=== PATIENT | male | born 1955 | race Hispanic/Latino ===

== ENCOUNTER 2018-07-17 13:03 | Emergency (ER) | payer MEDICARE ==
[2018-07-17 13:10] VITALS: RESP 18
[2018-07-17] MEDS ORDERED: ceFAZolin 1 GM in Sodium Chloride 0.9% 100 ML IVPB ONE (13:23)
[2018-07-17] MEDS ORDERED: Sodium Chloride 0.9% 1,000 ML IV ONE (13:25)
--- NOTE | 2018-07-17 13:28 | ED PDOC ---
HPI: Wound Care - HPI Time Seen by Provider: 07/17/18 13:11 Chief Complaint (Nursing): Abnormal Skin Integrity Chief Complaint (Provider): Right Elbow Wound History Per: Patient Exam Limitations: no limitations Onset/Duration Of Symptoms: Days (x1 week) Current Symptoms Are (Timing): Still Present Additional Complaint(s): 63 year old male presents to the ED via EMS for evaluation of a right elbow wound with surrounding redness sustained during a trip and fall on loose floor boards one week ago. He states he has been using OTC antibiotic ointments with no relief and is experiencing decreased ROM to the arm. Otherwise, denies fever, chills, chest pain, shortness of breath, numbness, and tingling. PMD: Massimo Rojas Past Medical History Reviewed: Historical Data, Nursing Documentation, Vital Signs Vital Signs: Last Vital Signs Temp 98 F 07/17/18 13:08 Pulse 88 07/17/18 13:08 Resp 18 07/17/18 13:08 BP 121/61 07/17/18 13:08 Pulse Ox 99 07/17/18 13:08 - Medical History PMH: Anxiety, Bipolar Disorder, Depression Denies: Hepatitis, HIV, HTN, Chronic Kidney Disease, Seizures, Sexually Transmitted Disease - Surgical History Surgical History: No Surg Hx - Family History Family History: States: Unknown Family Hx - Social History Current smoker - smoking cessation education provided: No Alcohol: Social Drugs: Other (hx of abuse for 10 years, 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) - Immunization History Hx Tetanus Toxoid Vaccination: No Hx Influenza Vaccination: No - Home Medications Home Medications: Ambulatory Orders Medication Instructions Recorded Gabapentin [Neurontin] 100 mg PO TID #90 cap 05/16/17 QUEtiapine [Seroquel] 100 mg PO HS #30 tab 05/16/17 Sertraline [Zoloft] 150 mg PO DAILY #30 tab 05/16/17 Ciprofloxacin HCl [Cipro] 500 mg PO BID #28 tablet 07/17/18 Sulfamethoxazole/Trimethoprim 1 tab PO BID #20 tab 07/17/18 [Bactrim DS 800 mg-160 mg] - Allergies Allergies/Adverse Reactions: Allergies Allergy/AdvReac Type Severity Reaction Status Date / Time No Known Allergies Allergy Verified 04/13/18 12:03 Review of Systems ROS Statement: Except As Marked, All Systems Reviewed And Found Negative Constitutional: Negative for: Fever, Chills Cardiovascular: Negative for: Chest Pain Respiratory: Negative for: Shortness of Breath Musculoskeletal: Positive for: Other (decreased ROM to right arm secondary to pain) Skin: Positive for: Other (wound to right elbow with surrounding redness) Neurological: Negative for: Numbness (and tinlging) Physical Exam - Reviewed Nursing Documentation Reviewed: Yes Vital Signs Reviewed: Yes - Physical Exam Appears: Positive for: No Acute Distress Head Exam: Positive for: ATRAUMATIC, NORMOCEPHALIC Eye Exam: Positive for: Normal appearance Neck: Positive for: Normal, Painless ROM Cardiovascular/Chest: Positive for: Regular Rate, Rhythm Respiratory: Positive for: Normal Breath Sounds. Negative for: Respiratory Distress Extremity: Positive for: Tenderness (diffusely to right elbow), Other (2cm x 4cm eschar lesion to right posterior elbow that has radiant erythema in all directions, warm to touch, with scent distinctly pseudomonas). Negative for: Normal ROM (decreased extension of right arm to 85 degrees; normal ROM to all digits) Neurological/Psych: Positive for: Awake, Alert, Oriented (x3) - Laboratory Results Result Diagrams: 07/17/18 13:43 07/17/18 13:43 - ECG O2 Sat by Pulse Oximetry: 99 (RA) Pulse Ox Interpretation: Normal Medical Decision Making Medical Decision Making: Time: 1321 Initial Impression: wound care Initial Plan: --CMP --CBC with differential --Blood culture x2 --XR right elbow --Ancef 1gm NS IV --Normal saline IV --Wound culture --Cipro 400mg/200ml IVPB --Reevaluation 1422 Preliminary XR read by me as no fracture, no effusion, and no signs of osteomyelitis. ELBOW XRAY PROCEDURE: Radiographs of the right elbow. HISTORY: infx r/o osteo COMPARISON: No prior. TECHNIQUE: 3 views obtained. FINDINGS: BONES: Epicondyle. No evidence of acute displaced fracture nor dislocation. No obvious cortical destructive changes. JOINTS: There appears to be a tiny enthesophyte arising from the medial epicondyle SOFT TISSUES: There are soft tissue infiltration changes consistent with this patient's history of cellulitis. No definitive subcutaneous emphysema JOINT EFFUSION: None. OTHER FINDINGS: None. IMPRESSION: No evidence of acute displaced fracture nor dislocation. No obvious cortical destructive changes. Findings consistent with soft tissue cellulitis however no subcutaneous emphysema. If symptoms persist or early osteomyelitis suspected clinically recommend follow-up MRI. PT has had IV abx on site; pt is afebrile with no WBC count Pt vitals are otherwise stable and the patient is stable for discharge Scribe Attestation: Documented by Sydnie Parikh, acting as a scribe for Aaron Navarro PA-C. Provider Scribe Attestation: All medical record entries made by the Scribe were at my direction and personally dictated by me. I have reviewed the chart and agree that the record accurately reflects my personal performance of the history, physical exam, m edical decision making, and the department course for this patient. I have also personally directed, reviewed, and agree with the discharge instructions and disposition. Disposition - Clinical Impression Clinical Impression: Cellulitis of arm, right - Patient ED Disposition Is Patient to be Admitted: No Doctor Will See Patient In The: Office Counseled Patient/Family Regarding: Studies Performed, Diagnosis, Need For Followup, Rx Given - Disposition Referrals: Massimo Rojas MD [Family Provider] - Disposition: Routine/Home Disposition Time: 16:50 Condition: STABLE Prescriptions: Ciprofloxacin HCl [Cipro] 500 mg PO BID #28 tablet Sulfamethoxazole/Trimethoprim [Bactrim DS 800 mg-160 mg] 1 tab PO BID #20 tab Instructions: Cellulitis and Erysipelas (Skin Infections), Cellulitis (Skin Infection), Adult (DC) Forms: [employer] (P) ([place])
[2018-07-17] MEDS ORDERED: Ciprofloxacin 400mg/200ml D5W 400 MG/200 ML BAG IVPB STA (13:47)
[2018-07-17] MEDS ORDERED: Ciprofloxacin 400mg/200ml D5W 400 MG/200 ML BAG IVPB ONE (13:54)
[2018-07-17 14:13] LABS: BASO % 0.7 % (0.0-2.0); EOS # 0.1 K/uL (0.0-0.7); EOS % 2.4 % (0.0-4.0); LYMPH # 1.1 K/uL (1.0-4.3); LYMPH % 18.2 % (20.0-40.0); MEAN CELL VOLUME 85.7 fl (80.0-94.0); MEAN CORPUSCULAR HEMOGLOBIN 28.2 pg (27.0-31.0); MEAN CORPUSCULAR HGB CONC 32.9 g/dL (33.0-37.0); MEAN PLATELET VOLUME 8.2 fl (7.2-11.7); MONO # 0.5 K/uL (0.0-0.8); MONO % 8.6 % (0.0-10.0); NEUT # 4.2 K/uL (1.8-7.0); NEUT % 70.1 % (50.0-75.0); NRBC % 0.1 % (0.0-0.0); RBC 4.6 Mil/uL (4.40-5.90); RED CELL DISTRIBUTION WIDTH 16.5 % (11.5-14.5)
[2018-07-17 14:30] LABS: ALB/GLOB RATIO 1.2 (1.0-2.1); ALBUMIN 3.8 g/dL (3.5-5.0); ALT/SGPT 24 U/L (21-72); AST/SGOT 19 U/L (17-59); BLOOD UREA NITROGEN 8 mg/dl (9-20); GFR NON-AFRICAN AMERICAN > 60
--- NOTE | 2018-07-17 14:43 | RAD ---
Date of service: 07/17/2018 PROCEDURE: Radiographs of the right elbow. HISTORY: infx r/o osteo COMPARISON: No prior. TECHNIQUE: 3 views obtained. FINDINGS: BONES: Epicondyle. No evidence of acute displaced fracture nor dislocation. No obvious cortical destructive changes. JOINTS: There appears to be a tiny enthesophyte arising from the medial epicondyle SOFT TISSUES: There are soft tissue infiltration changes consistent with this patient's history of cellulitis. No definitive subcutaneous emphysema JOINT EFFUSION: None. OTHER FINDINGS: None. IMPRESSION: No evidence of acute displaced fracture nor dislocation. No obvious cortical destructive changes. Findings consistent with soft tissue cellulitis however no subcutaneous emphysema. If symptoms persist or early osteomyelitis suspected clinically recommend follow-up MRI.
[2018-07-17 17:08] VITALS: BP 131/80; PULSE 80; TEMP 98.5; O2SAT 100
== END 2018-07-17 17:06 | disposition home or self-care (01) ==
LOC: H.ER 13:03
DX: L03.113 Cellulitis of right upper limb (principal); Z86.59 Personal history of other mental and behavioral disorders; W01.0XXA Fall on same level from slipping, tripping and stumbling without subsequent striking against object, initial encounter
CPT/HCPCS: 73080; 80053; 85025; 87040; 87070; 87181; 96374; 96375; 99283; J0690; J0744; J7030

== ENCOUNTER 2018-07-21 17:50 | Inpatient (IN) | payer MEDICARE ==
[2018-07-21 19:29] LABS: BASO # 0.1 K/uL (0.0-0.2); BASO % 0.6 % (0.0-2.0); EOS # 0.2 K/uL (0.0-0.7); EOS % 2.4 % (0.0-4.0); HEMOGLOBIN 13.4 g/dL (12.0-18.0); LYMPH # 1.3 K/uL (1.0-4.3); LYMPH % 15.2 % (20.0-40.0); MEAN CORPUSCULAR HEMOGLOBIN 28.5 pg (27.0-31.0); MEAN CORPUSCULAR HGB CONC 33.2 g/dL (33.0-37.0); MEAN PLATELET VOLUME 7.8 fl (7.2-11.7); MONO # 0.6 K/uL (0.0-0.8); MONO % 7.3 % (0.0-10.0); NEUT # 6.2 K/uL (1.8-7.0); NEUT % 74.5 % (50.0-75.0); NRBC % 0.1 % (0.0-0.0); RBC 4.69 Mil/uL (4.40-5.90); RED CELL DISTRIBUTION WIDTH 16.4 % (11.5-14.5); WHITE BLOOD COUNT 8.3 K/uL (4.8-10.8)
[2018-07-21 19:32] LABS: PROTHROMBIN TIME 11.4 Seconds (9.8-13.1)
[2018-07-21 19:35] LABS: PARTIAL THROMBOPLASTIN TIME 44.6 Seconds (25.6-37.1)
[2018-07-21 19:39] LABS: ALB/GLOB RATIO 1.2 (1.0-2.1); ALBUMIN 4.1 g/dL (3.5-5.0); ALT/SGPT 32 U/L (21-72); AST/SGOT 25 U/L (17-59); BLOOD UREA NITROGEN 10 mg/dl (9-20); CALCIUM 9.3 mg/dL (8.4-10.2); GFR NON-AFRICAN AMERICAN > 60
--- NOTE | 2018-07-21 20:18 | ED PDOC ---
Upper Extremity Pain/Injury Time Seen by Provider: 07/21/18 18:42 Chief Complaint (Nursing): Wound Check Chief Complaint (Provider): Wound Check History Per: Patient History/Exam Limitations: no limitations Onset/Duration Of Symptoms: Persistent Current Symptoms Are (Timing): Still Present Quality: "Pain" Exacerbating Factor(s): Movement Additional Complaint(s): 63 year old male presents to the ED for evaluation of a wound to the right elbow that he sustained almost two weeks ago. Patient was treated at this ED at 07/17 and discharged with the diagnosis of wound infection on Ciprofloxacin and Bactrim. He was called two days later and informed that he has MRSA. Patient's antibiotic was then changed to Doxycycline. Since, pain worsened and the wound has become increasingly red as well as draining. Patient also reports a subjective fever at night and that pain is worsened with movement. He visited his PMD today and was told to come to the ED. Denies numbness or tingling in right upper extremity and chills. PMD: Dr. Rojas Past Medical History Reviewed: Historical Data, Nursing Documentation, Vital Signs Vital Signs: Last Vital Signs Temp 98.5 F 07/21/18 18:31 Pulse 94 H 07/21/18 18:31 Resp 16 07/21/18 18:31 BP 190/103 H 07/21/18 18:31 Pulse Ox 100 07/21/18 18:31 - Medical History PMH: Anxiety, Bipolar Disorder, Depression, Diabetes Denies: Hepatitis, HIV, HTN, Chronic Kidney Disease, Seizures, Sexually Transmitted Disease - Surgical History Surgical History: Tonsillectomy - Family History Family History: States: Unknown Family Hx - Social History Current smoker - smoking cessation education provided: Yes Alcohol: Occasional Drugs: Opiates (history of heroine abuse; 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) - Immunization History Hx Tetanus Toxoid Vaccination: No Hx Influenza Vaccination: No - Home Medications Home Medications: Ambulatory Orders Medication Instructions Recorded Ciprofloxacin HCl [Cipro] 500 mg PO BID #28 tablet 07/17/18 Doxycycline Hyclate [Doryx] 100 mg PO BID #14 cap 07/19/18 Gabapentin [Neurontin] 100 mg PO BID 07/21/18 QUEtiapine [Seroquel] 100 mg PO HS 07/21/18 Sertraline [Zoloft] 100 mg PO BID 07/21/18 - Allergies Allergies/Adverse Reactions: Allergies Allergy/AdvReac Type Severity Reaction Status Date / Time No Known Allergies Allergy Verified 04/13/18 12:03 Review of Systems ROS Statement: Except As Marked, All Systems Reviewed And Found Negative Constitutional: Negative for: Fever, Chills Musculoskeletal: Positive for: Arm Pain (right elbow pain, redness and d/c) Neurological: Negative for: Weakness, Numbness Physical Exam - Reviewed Nursing Documentation Reviewed: Yes Vital Signs Reviewed: Yes - Physical Exam Appears: Positive for: Non-toxic, No Acute Distress Head Exam: Positive for: ATRAUMATIC, NORMOCEPHALIC Skin: Positive for: Warm, Dry Eye Exam: Positive for: EOMI, PERRL ENT: Positive for: Normal ENT Inspection Neck: Positive for: Painless ROM, Supple Cardiovascular/Chest: Positive for: Regular Rate, Rhythm. Negative for: Murmur Respiratory: Positive for: Normal Breath Sounds. Negative for: Respiratory Dis tress Gastrointestinal/Abdominal: Positive for: Soft. Negative for: Tenderness Back: Positive for: Normal Inspection. Negative for: Decreased ROM Extremity: Positive for: Normal ROM (full ROM at right elbow), Other (well-de marcated, 4 cm x 3 cm with a depth of 1/2 cm, circular ulceration to right elbow with surrounding erythema and yellow eschar within wound) Lymphatic: Negative for: Adenopathy Neurological/Psych: Positive for: Awake. Negative for: Motor/Sensory Deficits - Laboratory Results Result Diagrams: 07/21/18 19:07 07/21/18 19:07 Lab Results: PT 11.4 Seconds (9.8-13.1) 07/21/18 19: INR 1.0 07/21/18 19:07 APTT 44.6 Seconds (25.6-37.1) H 07/21/18 19:07 Total Bilirubin 0.3 mg/dl (0.2-1.3) 07/21/18 19:07 AST 25 U/L (17-59) 07/21/18 19:07 ALT 32 U/L (21-72) 07/21/18 19:07 Alkaline Phosphatase 75 U/L (38-126) 07/21/18 19:07 Total Protein 7.6 G/DL (6.3-8.2) 07/21/18 19: Albumin 4.1 g/dL (3.5-5.0) 07/21/18 19:07 Globulin 3.5 gm/dL (2.2-3.9) 07/21/18 19:07 Albumin/Globulin Ratio 1.2 (1.0-2.1) 07/21/18 19:07 - ECG O2 Sat by Pulse Oximetry: 100 (RA) Pulse Ox Interpretation: Normal Medical Decision Making Medical Decision Makin:50 Impression: multi drug resistant Staph aureus wound infection at right elbow --Blood type --EKG --CMP --CRP --UDS --Lactic acid --Urine dip --CBC --ESR --PTT --PT --CXR --Vancomycin 1 gm in NS 250 ml IV --Blood cx Reviewed microbiology from wound cx demonstrates multi drug resistance Staph aureus Patient will need hospital admission for IV antibiotics DW Dr [facility] Scribe Attestation: Documented by Sabrina Gonzalez, acting as a scribe for Kitty Quintana MD Provider Scribe Attestation: All medical record entries made by the Scribe were at my direction and personally dictated by me. I have reviewed the chart and agree that the record accurately reflects my personal performance of the history, physical exam, medical decision making, and the department course for this patient. I have also personally directed, reviewed, and agree with the discharge instructions and disposition. Disposition - Clinical Impression Clinical Impression: Cellulitis of right elbow Counseled Patient/Family Regarding: Studies Performed, Diagnosis - Disposition Disposition Time: 20:00 Condition: FAIR - Pt Status Changed To: Hospital Disposition Of: Inpatient - Admit Certification Admit to Inpatient:: After my assessment, the patient will require hospitalization for at least two midnights. This is because of the severity of symptoms shown, intensity of services needed, and/or the medical risk in this patient being treated as an outpatient. - POA Present On Arrival: None
[2018-07-21] MEDS ORDERED: Vancomycin 1 g Inj ONE (20:45)
[2018-07-22 03:45] VITALS: BMI 25.9
[2018-07-22 07:07] LABS: BENZODIAZEPINES, UR NEGATIVE (NEGATIVE)
[2018-07-22 07:11] LABS: BARBITURATES, UR NEGATIVE (NEGATIVE); OPIATES, UR NEGATIVE (NEGATIVE); PHENCYCLIDINE, UR NEGATIVE (NEGATIVE)
--- NOTE | 2018-07-22 09:17 | CARD ---
APPROVED REPORT Date of service: 07/21/2018 EKG Measurement Heart [id number] <Conclusion> Normal sinus rhythm Normal ECG
--- NOTE | 2018-07-22 09:48 | RAD ---
Date of service: 07/21/2018 HISTORY: hypertension cellulitis COMPARISON: No prior. TECHNIQUE: Chest PA and lateral views FINDINGS: LUNGS: No active pulmonary disease. PLEURA: No significant pleural effusion identified. No pneumothorax apparent. CARDIOVASCULAR: No aortic atherosclerotic calcification present. Normal cardiac size. No pulmonary vascular congestion. OSSEOUS STRUCTURES: No significant abnormalities. VISUALIZED UPPER ABDOMEN: Normal. OTHER FINDINGS: None. IMPRESSION: No acute cardiopulmonary disease appreciated.
--- NOTE | 2018-07-22 10:30 | CP.PCM.CON ---
History of Present Illness - History of Present Illness History of Present Illness: Infectious Disease Consultation Note- Asked to see this patietn at the request of for right elbow cellulitis. HPI- Patient is a 63 year old male with PMH of depression who was recaleld by ED because his right elbow wound cx grew MRSA. Pt. states 2 weeks ago he fell on uneven candy and scraped his right elbow and he noticed that the region was getting red and painful and foul smelling and he came to Ed few days ago and was given bactrim and cipro and d/c home. He states after that he was called that the cx grew MRSA and he was switched to doxycyline but his right elbow started to have evn more swelling and redness and pain and hence he came to ED for further evaluation. He denies any PMH other than pysch history. Upon reading his medical chart and previous admission notes pt. has h/o IVDU and is Hep C positive. Pt. has been started by admitting team on Iv vancomycin since yesterday and he states he has developed some itchy rashes on his arms b/l and b/l thighs. he denies any throat pain or any respiratory problems. denies any fever or chills. denies any nausea or vomiting, denies any MONGE, denies any cough or sob, denies any chest pain, denies any dysurea, denies any diarrhea. he only c/o foul smelling pus discharge from his right elbow and redness and pain there. Allergy- denies except this rash after vanco Review of Systems - Review of Systems Review of Systems: ROS- as stated in HPI Past Patient History - Infectious Disease Hx of Infectious Diseases: None - Past Medical History & Family History Past Medical History?: Yes - Past Social History Smoking Status: Heavy Smoker > 10 Cigarettes Daily - CARDIAC Hx Cardiac Disorders: No Hx Hypertension: No - PULMONARY Hx Respiratory Disorders: No - NEUROLOGICAL Hx Neurological Disorder: No Hx Seizures: No - HEENT Hx HEENT Problems: No - RENAL Hx Chronic Kidney Disease: No - ENDOCRINE/METABOLIC Hx Endocrine Disorders: No - HEMATOLOGICAL/ONCOLOGICAL Hx Hepatitis C: Yes - INTEGUMENTARY Hx Dermatological Problems: Yes Other/Comment: Noted some lesions on arms and legs and currently on BACTRIM - MUSCULOSKELETAL/RHEUMATOLOGICAL Hx Musculoskeletal Disorders: No Hx Falls: Yes - GASTROINTESTINAL Hx Gastrointestinal Disorders: Yes Hx Nausea: Yes - GENITOURINARY/GYNECOLOGICAL Hx Sexually Transmitted Disorders: No - PSYCHIATRIC Hx Anxiety: Yes Hx Bipolar Disorder: Yes Hx Depression: Yes Hx Substance Use: Yes - SURGICAL HISTORY Hx Orthopedic Surgery: Yes (left knee surgery) Hx Tonsillectomy: Yes - ANESTHESIA Hx Anesthesia: Yes Hx Anesthesia Reactions: No Hx Malignant Hyperthermia: No Has any member of the family had a problem w/ anesthesia?: No Meds Allergies/Adverse Reactions: Allergies Allergy/AdvReac Type Severity Reaction Status Date / Time No Known Allergies Allergy Verified 04/13/18 12:03 - Medications Medications: Current Medications Gabapentin (Neurontin) 100 mg PO BID [facility] Last Admin: 07/22/18 09:26 Dose: 100 mg Heparin Sodium (Porcine) (Heparin) 5,000 units SC Q12 [facility]; Protocol Last Admin: 07/22/18 09:26 Dose: 5,000 units Vancomycin HCl 1 gm/ Sodium (Chloride) 250 mls @ 166.667 mls/hr IV Q12 [facility]; Protocol Last Admin: 07/22/18 09:25 Dose: 166.667 mls/hr Quetiapine Fumarate (Seroquel) 100 mg PO HS [facility] Sertraline HCl (Zoloft) 100 mg PO BID [facility] Physical Exam - Constitutional Appears: No Acute Distress - Head Exam Head Exam: ATRAUMATIC - Eye Exam Eye Exam: EOMI, PERRL - ENT Exam ENT Exam: Normal Oropharynx - Neck Exam Neck exam: Positive for: Full Rom - Respiratory Exam Respiratory Exam: Clear to Auscultation Bilateral, NORMAL BREATHING PATTERN - Cardiovascular Exam Cardiovascular Exam: RRR, +S1, +S2 - GI/Abdominal Exam GI & Abdominal Exam: Normal Bowel Sounds, Soft Additional comments: Nt, ND - Extremities Exam Additional comments: right olecranon region with extensive erythema and has open wound with purulent discharge malodor present wound size about 6 x 7 cm surrounding erythema noted as well no fluctuation - Neurological Exam Neurological exam: Alert, Oriented x3 - Skin Additional comments: few round pale pink rahes on b/l arms adn thigh region Results - Vital Signs Recent Vital Signs: Last Vital Signs Temp 97.2 F L 07/22/18 08:39 Pulse 84 07/22/18 08:39 Resp 20 07/22/18 08:39 BP 135/91 H 07/22/18 08:39 Pulse Ox 100 07/22/18 08:39 - Labs Result Diagrams: 07/21/18 19:07 07/21/18 19:07 Labs: Laboratory Results - last 24 hr 07/21/18 07/21/18 07/21/18 19:07 19:07 19:07 WBC 8.3 RBC 4.69 Hgb 13.4 Hct 40.3 MCV 86.0 MCH 28.5 MCHC 33.2 RDW 16.4 H Plt Count 227 MPV 7.8 Neut % (Auto) 74.5 Lymph % (Auto) 15.2 L [place] % (Auto) 7.3 Eos % (Auto) 2.4 Baso % (Auto) 0.6 Neut # (Auto) 6.2 Lymph # (Auto) 1.3 [place] # (Auto) 0.6 Eos # (Auto) 0.2 Baso # (Auto) 0.1 ESR Cancelled PT INR APTT Sodium 138 Potassium 4.2 Chloride 106 Carbon Dioxide 23 Anion Gap 13 BUN 10 Creatinine 0.9 Est GFR ( Amer) > 60 Est GFR (Non-Af Amer) > 60 POC Glucose (mg/dL) Random Glucose 107 Lactic Acid 1.3 Calcium 9.3 Total Bilirubin 0.3 AST 25 ALT 32 Alkaline Phosphatase 75 Total Protein 7.6 Albumin 4.1 Globulin 3.5 Albumin/Globulin Ratio 1.2 Urine Opiates Screen Urine Methadone Screen Ur Barbiturates Screen Ur Phencyclidine Scrn Ur Amphetamines Screen U Benzodiazepines Scrn U Oth Cocaine Metabols U Cannabinoids Screen Blood Type Blood Type Confirm Antibody Screen BBK History Checked 07/21/18 07/21/18 07/21/18 19:07 19:07 19:20 WBC RBC Hgb Hct MCV MCH MCHC RDW Plt Count MPV Neut % (Auto) Lymph % (Auto) [place] % (Auto) Eos % (Auto) Baso % (Auto) Neut # (Auto) Lymph # (Auto) [place] # (Auto) Eos # (Auto) Baso # (Auto) ESR PT 11.4 INR 1.0 APTT 44.6 H Sodium Potassium Chloride Carbon Dioxide Anion Gap BUN Creatinine Est GFR ( Amer) Est GFR (Non-Af Amer) POC Glucose (mg/dL) Random Glucose Lactic Acid Calcium Total Bilirubin AST ALT Alkaline Phosphatase Total Protein Albumin Globulin Albumin/Globulin Ratio Urine Opiates Screen Urine Methadone Screen Ur Barbiturates Screen Ur Phencyclidine Scrn Ur Amphetamines Screen U Benzodiazepines Scrn U Oth Cocaine Metabols U Cannabinoids Screen Blood Type O NEGATIVE Blood Type Confirm O NEGATIVE Antibody Screen Negative BBK History Checked No verified bt 07/21/18 07/22/18 07/22/18 22:07 05:05 06:49 WBC RBC Hgb Hct MCV MCH MCHC RDW Plt Count MPV Neut % (Auto) Lymph % (Auto) [place] % (Auto) Eos % (Auto) Baso % (Auto) Neut # (Auto) Lymph # (Auto) [place] # (Auto) Eos # (Auto) Baso # (Auto) ESR 39 H PT INR APTT Sodium Potassium Chloride Carbon Dioxide Anion Gap BUN Creatinine Est GFR ( Amer) Est GFR (Non-Af Amer) POC Glucose (mg/dL) 103 Random Glucose Lactic Acid Calcium Total Bilirubin AST ALT Alkaline Phosphatase Total Protein Albumin Globulin Albumin/Globulin Ratio Urine Opiates Screen Negative Urine Methadone Screen Negative Ur Barbiturates Screen Negative Ur Phencyclidine Scrn Negative Ur Amphetamines Screen Negative U Benzodiazepines Scrn Negative U Oth Cocaine Metabols Negative U Cannabinoids Screen Negative Blood Type Blood Type Confirm Antibody Screen BBK History Checked Microbiology 07/17/18 13:43 Elbow - Right Gram Stain - Final 07/17/18 13:43 Elbow - Right Wound Culture - Final Methicillin Resistant S Aureus 07/17/18 13:43 Blood-Venous Blood Culture - Final NO GROWTH AFTER 5 DAYS Accession No. 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 TECHNIQUE: A volumetric CT acquisition was performed through the right elbow without intravenous contrast as requested. Multiplanar reformatted images of been submitted for interpretation. Radiation dose:Total exam DLP = 151.13 mGy-cm. This CT exam was performed using one or more of the following dose reduction techniques: Automated exposure control, adjustment of the mA and/or kV according to patient size, and/or use of iterative reconstruction technique. FINDINGS: There is no acute fracture, subluxation or dislocation involving the right elbow. A small vascular channel is identified at the medial posterior ulna approaching the olecranon process. A small osteophyte is seen at the inferol ateral margins of the coronoid process and cortical sclerosis appreciate throughout the joints of the right elbow. Small enthesiophytes are seen related to the medial lateral epicondyles of the distal right humerus. There is a moderate amount of subcutaneous edema and dermal thickening seen posterior to the L4 on process extending into the proximal forearm posterior soft tissues as well as the visualized upper arm posterior soft tissues. Hyperdense changes overlying the distal triceps muscle suggests limited hematoma. Laceration of skin is not excluded just proximal to the level of the olecranon process. No retained radiodense foreign body identified. No periosteal reaction or lytic changes seen to suggest definite osteomyelitis however MRI is more sensitive than CT for early osteomyelitis and can be performed as clinically warranted. IMPRESSION: Overt CT pattern of osteomyelitis although posttraumatic changes including probable small hematoma is seen at the superficial dorsal soft tissues of the elbow in likely distal arm laceration. No fracture, subluxation or dislocation. Degenerative changes seen at the left elbow and appear mild. No definitive abscess appreciable. Preliminary report provided by Yane, 07/21/2018, 8:29 p.m.. Assessment & Plan (1) Cellulitis of right elbow Status: Acute (2) Osteomyelitis of right elbow Status: Acute - Assessment and Plan (Free Text) Assessment: A/P- 63 year old male with PMH of IVDU, Hep C admitted with right elbow cellulitis post trauma. afebrile normal wbc blood cx-07/17/2018- neg wound cx 07/17/2018- MRSA witj vanco JOAQUÍN of 2 (VISA) Ct of the elbow- as per report suggestive of OM Plan- based on the High Vanco JOAQUÍN to this MRSA and the fact that he has developed ? rash sec to vanco advise to d/c vanco. Advise to start pt. on daptomycin for MRSA treatment. advise dapto 4mg /KG iv daily. check CPK while on dapto. took swab cx of the wound today as well. check blood cx x 2 as well. All above d/w patient and he verbalizes full understanding of all above and agrees with above plan of care. Thank you for allowing me to take part in the care of this patient.
--- NOTE | 2018-07-22 13:51 | CT ---
Date of service: 07/21/2018 PROCEDURE: RIGHT ELBOW CT WITHOUT CONTRAST HISTORY: elbow RIGHT open wound infection COMPARISON: Right elbow radiographs 07/17/2018. TECHNIQUE: A volumetric CT acquisition was performed through the right elbow without intravenous contrast as requested. Multiplanar reformatted images of been submitted for interpretation. Radiation dose:Total exam DLP = 151.13 mGy-cm. This CT exam was performed using one or more of the following dose reduction techniques: Automated exposure control, adjustment of the mA and/or kV according to patient size, and/or use of iterative reconstruction technique. FINDINGS: There is no acute fracture, subluxation or dislocation involving the right elbow. A small vascular channel is identified at the medial posterior ulna approaching the olecranon process. A small osteophyte is seen at the inferolateral margins of the coronoid process and cortical sclerosis appreciate throughout the joints of the right elbow. Small enthesiophytes are seen related to the medial lateral epicondyles of the distal right humerus. There is a moderate amount of subcutaneous edema and dermal thickening seen posterior to the L4 on process extending into the proximal forearm posterior soft tissues as well as the visualized upper arm posterior soft tissues. Hyperdense changes overlying the distal triceps muscle suggests limited hematoma. Laceration of skin is not excluded just proximal to the level of the olecranon process. No retained radiodense foreign body identified. No periosteal reaction or lytic changes seen to suggest definite osteomyelitis however MRI is more sensitive than CT for early osteomyelitis and can be performed as clinically warranted. IMPRESSION: Overt CT pattern of osteomyelitis although posttraumatic changes including probable small hematoma is seen at the superficial dorsal soft tissues of the elbow in likely distal arm laceration. No fracture, subluxation or dislocation. Degenerative changes seen at the left elbow and appear mild. No definitive abscess appreciable. Preliminary report provided by Yane, 07/21/2018, 8:29 p.m..
--- NOTE | 2018-07-22 18:04 | RAD ---
Date of service: 07/22/2018 PROCEDURE: Radiographs of the right elbow. HISTORY: Right elbow wound COMPARISON: Comparison made with CT scan of the right elbow 07/21/2018 and prior radiographs of the right elbow 07/17/2018. TECHNIQUE: Two views obtained. FINDINGS: BONES: No evidence of acute displaced fracture nor dislocation. No evidence of cortical destructive changes. Small enthesophyte seen arising from the medial epicondyle JOINTS: Normal. No osteoarthritis. SOFT TISSUES: There is disruption-laceration of the dorsal skin and subcutaneous tissues dorsally at the level of the olecranon JOINT EFFUSION: None. OTHER FINDINGS: None. IMPRESSION: No evidence of acute displaced fracture nor dislocation. No obvious cortical destructive changes. Disruption-laceration of the dorsal soft tissues at the level of the olecranon.
--- NOTE | 2018-07-23 01:02 | HP ---
HISTORY OF PRESENT ILLNESS: This is a 63-year-old male with history of disability secondary to anxiety and depression. He sustained a fall couple of weeks ago, and he developed a wound in the right elbow. The patient was seen in the emergency room, and he was prescribed Bactrim. Micro culture was done and it showed the patient has MRSA of the right elbow. The patient was asked by his primary care physician to report back to emergency room for evaluation and admitted. The patient was started on IV antibiotic, daptomycin. The patient also had an x-ray that showed possible osteomyelitis. Other review of systems is unsteady gait due to advanced knee osteoarthritis. Other review of systems is negative. ALLERGIES: NO KNOWN ALLERGY. MEDICATIONS: Reviewed and ordered as per JUN. SOCIAL HISTORY: Occasional alcohol drinking. The patient is a smoker, more than 10 cigarettes a day. Positive history of substance abuse. FAMILY HISTORY: Noncontributory. PAST MEDICAL HISTORY: Depression, osteoarthritis. PHYSICAL EXAMINATION: VITAL SIGNS: Blood pressure 132/74, temperature 98.4, respiratory rate 20, and pulse 63. HEENT: Pupils are equal and reactive to light. Normal-appearing mucosa of the conjunctivae, oropharynx and nasal membrane mucosa. NECK: Supple. No JVD. No carotid bruit. No lymph nodes. No thyromegaly. CHEST AND LUNGS: Bilateral symmetrical expansion. Good air exchange. No rales. No rhonchi. CARDIOVASCULAR SYSTEM: PMI not localized. S1 and S2. No additional sounds. ABDOMEN: Normoactive bowel sounds. No tenderness. No organomegaly. No masses. EXTREMITIES: No cyanosis, no clubbing, no edema. There is right elbow wound with ulceration and purulent discharge. CENTRAL NERVOUS SYSTEM: Alert, awake, oriented x2. Moves all extremities equally and has unsteady gait, and the patient is using a cane. ASSESSMENT: 1. Right elbow infected wound, possible osteomyelitis. 2. History of depression. PLAN: ID consult. IV antibiotics as per ID senior sustainability consultant. Orthopedic consult for possible wound debridement. Harini Flynn MD
[2018-07-23] MEDS ORDERED: Hydrogen Peroxide 237 ML SOL TP SCH (09:00)
--- NOTE | 2018-07-23 12:21 | CP.PCM.CON ---
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 PT changes history sevral times durimng questioning. initially said abrasion happened[facility]ed to ER at [facility] and released last wednesday. PT saw pmd who told pt to go back to ER. Pt presented to ER Wednesday and was admitted. Called to see pt . Pt on questiooning then said fall could have been 2-3 wks ago. Doesnt make sense secondary top chronic appearnce of silver dollar sized ulcer. pt has no acure eryhtema, minimal swelling and no pain on passive rom. PT with documted drug abuse history. Past Patient History - Infectious Disease Hx of Infectious Diseases: None - Past Medical History & Family History Past Medical History?: Yes - Past Social History Smoking Status: Heavy Smoker > 10 Cigarettes Daily - CARDIAC Hx Cardiac Disorders: No Hx Hypertension: No - PULMONARY Hx Respiratory Disorders: No - NEUROLOGICAL Hx Neurological Disorder: No Hx Seizures: No - HEENT Hx HEENT Problems: No - RENAL Hx Chronic Kidney Disease: No - ENDOCRINE/METABOLIC Hx Endocrine Disorders: No - HEMATOLOGICAL/ONCOLOGICAL Hx Hepatitis C: Yes - INTEGUMENTARY Hx Dermatological Problems: Yes Other/Comment: Noted some lesions on arms and legs and currently on BACTRIM - MUSCULOSKELETAL/RHEUMATOLOGICAL Hx Musculoskeletal Disorders: No Hx Falls: Yes - GASTROINTESTINAL Hx Gastrointestinal Disorders: Yes Hx Nausea: Yes - GENITOURINARY/GYNECOLOGICAL Hx Sexually Transmitted Disorders: No - PSYCHIATRIC Hx Anxiety: Yes Hx Bipolar Disorder: Yes Hx Depression: Yes Hx Substance Use: Yes - SURGICAL HISTORY Hx Orthopedic Surgery: Yes (left knee surgery) Hx Tonsillectomy: Yes - ANESTHESIA Hx Anesthesia: Yes Hx Anesthesia Reactions: No Hx Malignant Hyperthermia: No Has any member of the family had a problem w/ anesthesia?: No Meds Allergies/Adverse Reactions: Allergies Allergy/AdvReac Type Severity Reaction Status Date / Time No Known Allergies Allergy Verified 04/13/18 12:03 - Medications Medications: Current Medications Diphenhydramine HCl (Benadryl) 25 mg PO Q6 PRN PRN Reason: Itching / Pruritus Last Admin: 07/22/18 16:55 Dose: 25 mg Gabapentin (Neurontin) 100 mg PO BID [facility] Last Admin: 07/23/18 08:28 Dose: 100 mg Heparin Sodium (Porcine) (Heparin) 5,000 units SC Q12 [facility]; Protocol Last Admin: 07/23/18 08:28 Dose: 5,000 units Hydrogen Peroxide (Hydrogen Peroxide 237ml) 237 ml TP DAILY [facility] Last Admin: 07/23/18 08:29 Dose: 237 ml Daptomycin 320 mg/ Sodium (Chloride) 100 mls @ 100 mls/hr IV Q24H [facility]; Protocol Stop: 07/27/18 15:16 Last Admin: 07/22/18 16:48 Dose: 100 mls/hr Quetiapine Fumarate (Seroquel) 100 mg PO HS [facility] Last Admin: 07/22/18 21:41 Dose: 100 mg Sertraline HCl (Zoloft) 100 mg PO BID [facility] Last Admin: 07/23/18 08:29 Dose: 100 mg Physical Exam - Skin Additional comments: Physical exam systemic exam- pt extremely nervous and twitching at time of encounter no fever/no shaking chills/no evidence for systemic sepsis MusculoskeLETAL EXAM: STANCE /GAIT- DEFRRED/ pt extremely anxious at time of eval R elbow passive rom painless open ulcer with eschar on posterior as pet of elbow- appears chronic in nature, certainly not acute, or occurred 1 wk ago when pt prtesented to ER- no real active drainage pt with painless actiuve ROM R elbow Results - Vital Signs Recent Vital Signs: Last Vital Signs Temp 97.6 F 07/23/18 09:02 Pulse 75 07/23/18 09:02 Resp 20 07/23/18 09:02 BP 127/78 07/23/18 09:02 Pulse Ox 98 07/23/18 09:02 - Labs Result Diagrams: 07/21/18 19:07 07/21/18 19:07 Labs: Laboratory Results - last 24 hr 07/21/18 07/22/18 19:07 15:45 Total Creatine Kinase 20 L C-Reactive Protein 7.90 - Impressions Impression: Xray- R elbow negative for cortical rxn, as one would see in chronic osteomyelitis; no fx dislocatyion or bony changes CT scan- no evidence for acute or chronic osteomeyelitis in my opinion; will review with Dr Fine 3D views again real NO CORTICAL REACTION OR DE STRUCTION; THEY do evidence the aformnentioen skin defect, which is most likely chronic in nature Assessment & Plan - Assessment and Plan (Free Text) Assessment: A- chronic noin healing ulcer on posterior aspect of olecranon 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
[2018-07-23] MEDS ORDERED: Povidone Iodine Topical 10% Sol ONE (12:22)
--- NOTE | 2018-07-23 13:22 | CP.PCM.CON ---
History of Present Illness - History of Present Illness History of Present Illness: Plastic Surgery Consult Note for Dr. Raymundo Reason for consult: complex wound closure on Right elbow 63 M with PMH that includes DM, Hep C, IVDA, anxiety/depression, bipolar disorder presents to [facility] with chronic ulcer on Right posterior elbow. Patient seen and evaluated on the dnaiel. Patient reports that ulcer has been present for about 2 weeks after he sustained a fall. Patient did not specify how he fell. Patient currently denies pain in right elbow. He denies fever/chills. Dr. Waddell was called to see the patient and plans to take him to OR Wednesday for debridement and possible arthroscopy. Plastic surgery was consulted in order to close subsequent wound. X-ray was negative for cortical rxn, no fx dislocation or bony changes (see full report). Ct of RUE was also performed. CT showed possible osteomyelitis with small hematoma and inflammation in subcutaneous tissue (see full report). Patient refusing MRI due to claustrophobia. Patient has no specific complaints at this time. PMH: Hep C, IVDA, anxiety/depression, bipolar disorder, chronic elbow wounds, DM, HTN PSH: tonsillectomy ALL: NKDA Social: smokes 1 pack/day for years, Occasional marijuana, history of heroin abuse - on suboxone Review of Systems - Review of Systems All systems: reviewed and no additional remarkable complaints except (as per HPI) Past Patient History - Infectious Disease Hx of Infectious Diseases: None - Past Medical History & Family History Past Medical History?: Yes - Past Social History Smoking Status: Heavy Smoker > 10 Cigarettes Daily - CARDIAC Hx Cardiac Disorders: No Hx Hypertension: No - PULMONARY Hx Respiratory Disorders: No - NEUROLOGICAL Hx Neurological Disorder: No Hx Seizures: No - HEENT Hx HEENT Problems: No - RENAL Hx Chronic Kidney Disease: No - ENDOCRINE/METABOLIC Hx Endocrine Disorders: No - HEMATOLOGICAL/ONCOLOGICAL Hx Hepatitis C: Yes - INTEGUMENTARY Hx Dermatological Problems: Yes Other/Comment: Noted some lesions on arms and legs and currently on BACTRIM - MUSCULOSKELETAL/RHEUMATOLOGICAL Hx Musculoskeletal Disorders: No Hx Falls: Yes - GASTROINTESTINAL Hx Gastrointestinal Disorders: Yes Hx Nausea: Yes - GENITOURINARY/GYNECOLOGICAL Hx Sexually Transmitted Disorders: No - PSYCHIATRIC Hx Anxiety: Yes Hx Bipolar Disorder: Yes Hx Depression: Yes Hx Substance Use: Yes - SURGICAL HISTORY Hx Orthopedic Surgery: Yes (left knee surgery) Hx Tonsillectomy: Yes - ANESTHESIA Hx Anesthesia: Yes Hx Anesthesia Reactions: No Hx Malignant Hyperthermia: No Has any member of the family had a problem w/ anesthesia?: No Meds Allergies/Adverse Reactions: Allergies Allergy/AdvReac Type Severity Reaction Status Date / Time No Known Allergies Allergy Verified 04/13/18 12:03 - Medications Medications: Current Medications Diphenhydramine HCl (Benadryl) 25 mg PO Q6 PRN PRN Reason: Itching / Pruritus Last Admin: 07/22/18 16:55 Dose: 25 mg Gabapentin (Neurontin) 100 mg PO BID [facility] Last Admin: 07/23/18 08:28 Dose: 100 mg Heparin Sodium (Porcine) (Heparin) 5,000 units SC Q12 [facility]; Protocol Last Admin: 07/23/18 08:28 Dose: 5,000 units Hydrogen Peroxide (Hydrogen Peroxide 237ml) 237 ml TP DAILY [facility] Last Admin: 07/23/18 08:29 Dose: 237 ml Daptomycin 320 mg/ Sodium (Chloride) 100 mls @ 100 mls/hr IV Q24H [facility]; Protocol Stop: 07/27/18 15:16 Last Admin: 07/22/18 16:48 Dose: 100 mls/hr Quetiapine Fumarate (Seroquel) 100 mg PO HS [facility] Last Admin: 07/22/18 21:41 Dose: 100 mg Sertraline HCl (Zoloft) 100 mg PO BID [facility] Last Admin: 07/23/18 08:29 Dose: 100 mg Physical Exam - Constitutional Appears: No Acute Distress - Head Exam Head Exam: ATRAUMATIC, NORMOCEPHALIC - Eye Exam Eye Exam: EOMI Pupil Exam: PERRL - ENT Exam ENT Exam: Mucous Membranes Moist - Neck Exam Neck exam: Positive for: Full Rom - Respiratory Exam Respiratory Exam: NORMAL BREATHING PATTERN - Cardiovascular Exam Cardiovascular Exam: REGULAR RHYTHM - GI/Abdominal Exam GI & Abdominal Exam: Normal Bowel Sounds, Soft. absent: Tenderness - Extremities Exam Extremities exam: Positive for: normal capillary refill, pedal pulses present. Negative for: calf tenderness - Back Exam Back exam: absent: CVA tenderness (L), CVA tenderness (R) - Neurological Exam Neurological exam: Alert, CN II-XII Intact, Oriented x3 - Psychiatric Exam Psychiatric exam: Flat Affect - Skin Skin Exam: Dry, Intact, Warm Results - Vital Signs Recent Vital Signs: Last Vital Signs Temp 97.6 F 07/23/18 09:02 Pulse 75 07/23/18 09:02 Resp 20 07/23/18 09:02 BP 127/78 07/23/18 09:02 Pulse Ox 98 07/23/18 09:02 - Labs Result Diagrams: 07/21/18 19:07 07/21/18 19:07 Labs: Laboratory Results - last 24 hr 07/22/18 15:45 Total Creatine Kinase 20 L Assessment & Plan - Assessment and Plan (Free Text) Assessment: 63 M with chronic right elbow ulcer Plan: -Diet as tolerated -Recommend MRI, if not then need bone scan -pain control -IV abx -patient to go to OR wednesday with Ortho recommend wound vac for dressing then Dr. Raymundo will do delayed closure and/or STSG -Medical/Psych management as per primary -Discussed with Dr. Zackary Coulter PGY2 - Date & Time Date: 07/23/18 Time: 13:22
--- NOTE | 2018-07-23 21:28 | PN ---
DATE: 07/23/2018 DAILY PROGRESS NOTE SUBJECTIVE: The patient is seen today, 07/23/2018. He is not in any cardiopulmonary distress, on IV antibiotics. PHYSICAL EXAMINATION: VITAL SIGNS: Blood pressure 121/78, temperature 97.4, respiratory rate 18, and pulse 73. HEENT: Pupils are equal and reactive to light. Normal-appearing mucosa of the conjunctivae, oropharynx and nasal membrane mucosa. NECK: Supple. No JVD. No carotid bruit. No lymph nodes. No thyromegaly. CHEST AND LUNGS: Bilateral symmetrical expansion. Good air exchange. No rales. No rhonchi. CARDIOVASCULAR SYSTEM: PMI not localized. S1 and S2. No additional sounds. ABDOMEN: Normoactive bowel sounds. No tenderness. No organomegaly. No masses. EXTREMITIES: No cyanosis. No clubbing. No edema. The patient has an infected wound on the right elbow. CENTRAL NERVOUS SYSTEM: Alert, awake, and oriented x2. No neurological deficits could be appreciated. ASSESSMENT: 1. Possible osteomyelitis of the right upper extremity. 2. History of depression. PLAN: Continue current IV antibiotics. Follow recommendations of Orthopedics who are planning to do debridement of the wound. Harini Flynn MD
[2018-07-24] MEDS: Hydrogen Peroxide 3% Soln (480ml) TP SCH (09:00)
--- NOTE | 2018-07-24 11:33 | CP.PCM.PN ---
Subjective - Date & Time of Evaluation Date of Evaluation: 07/24/18 Time of Evaluation: 11:33 - Subjective Subjective: ID Note- Pt. seen and examined today. he denies any fever or chills. he denies any new itchy lesion on his legs or arms but the ones that he had have grown darker and larger. Objective - Vital Signs/Intake and Output Vital Signs (last 24 hours): Temp Pulse Resp BP Pulse Ox 97.7 F 72 20 116/73 100 07/24/18 08:53 07/24/18 08:53 07/24/18 08:53 07/24/18 08:53 07/24/18 11:18 - Medications Medications: Current Medications Diphenhydramine HCl (Benadryl) 25 mg PO Q6 PRN PRN Reason: Itching / Pruritus Last Admin: 07/23/18 16:50 Dose: 25 mg Gabapentin (Neurontin) 100 mg PO BID [facility] Last Admin: 07/24/18 08:52 Dose: 100 mg Heparin Sodium (Porcine) (Heparin) 5,000 units SC Q12 [facility]; Protocol Last Admin: 07/24/18 08:52 Dose: 5,000 units Hydrogen Peroxide (Hydrogen Peroxide 3%) 237 ml TP DAILY [facility] Last Admin: 07/24/18 09:00 Dose: 237 ml Daptomycin 320 mg/ Sodium (Chloride) 100 mls @ 100 mls/hr IV Q24H [facility]; Protocol Stop: 07/27/18 15:16 Last Admin: 07/23/18 14:20 Dose: 100 mls/hr Quetiapine Fumarate (Seroquel) 100 mg PO HS [facility] Last Admin: 07/23/18 21:25 Dose: 100 mg Sertraline HCl (Zoloft) 100 mg PO BID [facility] Last Admin: 07/24/18 08:53 Dose: 100 mg - Labs Labs: - Additional Findings Additional findings: - Constitutional Appears: No Acute Distress - Head Exam Head Exam: ATRAUMATIC - Eye Exam Eye Exam: EOMI, PERRL - ENT Exam ENT Exam: Normal Oropharynx - Neck Exam Neck exam: Positive for: Full Rom - Respiratory Exam Respiratory Exam: Clear to Auscultation Bilateral, NORMAL BREATHING PATTERN - Cardiovascular Exam Cardiovascular Exam: RRR, +S1, +S2 - GI/Abdominal Exam GI & Abdominal Exam: Normal Bowel Sounds, Soft Additional comments: Nt, ND - Extremities Exam Additional comments: right olecranon region with less erythema. has open wound with purulent discharge wound size about 6 x 7 cm surrounding erythema has decreased no fluctuation - Neurological Exam Neurological exam: Alert, Oriented x3 - Skin Additional comments: the round lesions that he had 2 days ago are now much darker in color anhd larger but not warm to touch no new lesions have appeared yet Laboratory Results - last 72 hr 07/21/18 07/21/18 07/21/18 19:07 19:07 19:07 WBC 8.3 RBC 4.69 Hgb 13.4 Hct 40.3 MCV 86.0 MCH 28.5 MCHC 33.2 RDW 16.4 H Plt Count 227 MPV 7.8 Neut % (Auto) 74.5 Lymph % (Auto) 15.2 L Collin % (Auto) 7.3 Eos % (Auto) 2.4 Baso % (Auto) 0.6 Neut # (Auto) 6.2 Lymph # (Auto) 1.3 Collin # (Auto) 0.6 Eos # (Auto) 0.2 Baso # (Auto) 0.1 ESR Cancelled PT INR APTT Sodium 138 Potassium 4.2 Chloride 106 Carbon Dioxide 23 Anion Gap 13 BUN 10 Creatinine 0.9 Est GFR ( Amer) > 60 Est GFR (Non-Af Amer) > 60 POC Glucose (mg/dL) Random Glucose 107 Lactic Acid 1.3 Calcium 9.3 Total Bilirubin 0.3 AST 25 ALT 32 Alkaline Phosphatase 75 Total Creatine Kinase C-Reactive Protein 7.90 Total Protein 7.6 Albumin 4.1 Globulin 3.5 Albumin/Globulin Ratio 1.2 Urine Opiates Screen Urine Methadone Screen Ur Barbiturates Screen Ur Phencyclidine Scrn Ur Amphetamines Screen U Benzodiazepines Scrn U Oth Cocaine Metabols U Cannabinoids Screen Blood Type Blood Type Confirm Antibody Screen BBK History Checked 07/21/18 07/21/18 07/21/18 19:07 19:07 19:20 WBC RBC Hgb Hct MCV MCH MCHC RDW Plt Count MPV Neut % (Auto) Lymph % (Auto) Collin % (Auto) Eos % (Auto) Baso % (Auto) Neut # (Auto) Lymph # (Auto) Collin # (Auto) Eos # (Auto) Baso # (Auto) ESR PT 11.4 INR 1.0 APTT 44.6 H Sodium Potassium Chloride Carbon Dioxide Anion Gap BUN Creatinine Est GFR ( Amer) Est GFR (Non-Af Amer) POC Glucose (mg/dL) Random Glucose Lactic Acid Calcium Total Bilirubin AST ALT Alkaline Phosphatase Total Creatine Kinase C-Reactive Protein Total Protein Albumin Globulin Albumin/Globulin Ratio Urine Opiates Screen Urine Methadone Screen Ur Barbiturates Screen Ur Phencyclidine Scrn Ur Amphetamines Screen U Benzodiazepines Scrn U Oth Cocaine Metabols U Cannabinoids Screen Blood Type O NEGATIVE Blood Type Confirm O NEGATIVE Antibody Screen Negative BBK History Checked No verified bt 07/21/18 07/22/18 07/22/18 22:07 05:05 06:49 WBC RBC Hgb Hct MCV MCH MCHC RDW Plt Count MPV Neut % (Auto) Lymph % (Auto) Collin % (Auto) Eos % (Auto) Baso % (Auto) Neut # (Auto) Lymph # (Auto) Collin # (Auto) Eos # (Auto) Baso # (Auto) ESR 39 H PT INR APTT Sodium Potassium Chloride Carbon Dioxide Anion Gap BUN Creatinine Est GFR ( Amer) Est GFR (Non-Af Amer) POC Glucose (mg/dL) 103 Random Glucose Lactic Acid Calcium Total Bilirubin AST ALT Alkaline Phosphatase Total Creatine Kinase C-Reactive Protein Total Protein Albumin Globulin Albumin/Globulin Ratio Urine Opiates Screen Negative Urine Methadone Screen Negative Ur Barbiturates Screen Negative Ur Phencyclidine Scrn Negative Ur Amphetamines Screen Negative U Benzodiazepines Scrn Negative U Oth Cocaine Metabols Negative U Cannabinoids Screen Negative Blood Type Blood Type Confirm Antibody Screen BBK History Checked 07/22/18 15:45 WBC RBC Hgb Hct MCV MCH MCHC RDW Plt Count MPV Neut % (Auto) Lymph % (Auto) Collin % (Auto) Eos % (Auto) Baso % (Auto) Neut # (Auto) Lymph # (Auto) Collin # (Auto) Eos # (Auto) Baso # (Auto) ESR PT INR APTT Sodium Potassium Chloride Carbon Dioxide Anion Gap BUN Creatinine Est GFR ( Amer) Est GFR (Non-Af Amer) POC Glucose (mg/dL) Random Glucose Lactic Acid Calcium Total Bilirubin AST ALT Alkaline Phosphatase Total Creatine Kinase 20 L C-Reactive Protein Total Protein Albumin Globulin Albumin/Globulin Ratio Urine Opiates Screen Urine Methadone Screen Ur Barbiturates Screen Ur Phencyclidine Scrn Ur Amphetamines Screen U Benzodiazepines Scrn U Oth Cocaine Metabols U Cannabinoids Screen Blood Type Blood Type Confirm Antibody Screen BBK History Checked Microbiology 07/22/18 14:00 Elbow - Right Gram Stain - Final 07/22/18 14:00 Elbow - Right Wound Culture - Preliminary Methicillin Resistant S Aureus 07/21/18 19:07 Blood Blood Culture - Preliminary NO GROWTH AFTER 48 HOURS 07/21/18 19:07 Blood Blood Culture - Preliminary NO GROWTH AFTER 48 HOURS 07/22/18 15:55 Blood-Venous Blood Culture - Preliminary NO GROWTH AFTER 24 HOURS 07/22/18 15:45 Blood-Venous Blood Culture - Preliminary NO GROWTH AFTER 24 HOURS Assessment and Plan (1) Cellulitis of right elbow Status: Acute (2) Osteomyelitis of right elbow Status: Acute - Assessment and Plan (Free Text) Assessment: A/P- 63 year old male with PMH of IVDU, Hep C admitted with right elbow cellulitis post trauma. afebrile normal wbc blood cx-07/17/2018- neg x 2 wound cx 07/17/2018- MRSA with vanco JOAQUÍN of 2 (VISA) repeat wound cx-07/22/2018- MRSA with vanco JOAQUÍN of 1 Ct of the elbow- as per report suggestive of OM ESR-39 ( not too High) Plan- continue with IV daptomycin for MRSA wound infection day #3. check CPK while on dapto. pt. refuses MRI secondary to his claustrophobia and hence bone scan to rule out OM. pt. going for debridement of the wound by ortho tomm. advise to send deep cx and bone Biopsy as well. pt. also seen by plastic surgery as well . All above d/w patient and he verbalizes full understanding of all above and agrees with above plan of care.
--- NOTE | 2018-07-24 13:00 | CP.PCM.PN ---
Subjective - Date & Time of Evaluation Date of Evaluation: 07/24/18 Time of Evaluation: 10:30 - Subjective Subjective: Plastic Surgery Note for Dr. Raymundo Patient seen and examined at bedside. No complaints at this time. No acute events overnight. Patient reports that he cant do MRI due to claustrophobia so Bone scan was ordered. Ortho planning for OR Tuesday 07/25. Objective - Vital Signs/Intake and Output Vital Signs (last 24 hours): Temp Pulse Resp BP Pulse Ox 97.7 F 72 20 116/73 100 07/24/18 08:53 07/24/18 08:53 07/24/18 08:53 07/24/18 08:53 07/24/18 11:18 - Medications Medications: Current Medications Diphenhydramine HCl (Benadryl) 25 mg PO Q6 PRN PRN Reason: Itching / Pruritus Last Admin: 07/23/18 16:50 Dose: 25 mg Gabapentin (Neurontin) 100 mg PO BID [facility] Last Admin: 07/24/18 08:52 Dose: 100 mg Heparin Sodium (Porcine) (Heparin) 5,000 units SC Q12 [facility]; Protocol Last Admin: 07/24/18 08:52 Dose: 5,000 units Hydrogen Peroxide (Hydrogen Peroxide 3%) 237 ml TP DAILY [facility] Last Admin: 07/24/18 09:00 Dose: 237 ml Daptomycin 320 mg/ Sodium (Chloride) 100 mls @ 100 mls/hr IV Q24H [facility]; Protocol Stop: 07/27/18 15:16 Last Admin: 07/23/18 14:20 Dose: 100 mls/hr Quetiapine Fumarate (Seroquel) 100 mg PO HS [facility] Last Admin: 07/23/18 21:25 Dose: 100 mg Sertraline HCl (Zoloft) 100 mg PO BID [facility] Last Admin: 07/24/18 08:53 Dose: 100 mg - Labs Labs: 07/21/18 19:07 07/21/18 19:07 PT 11.4 Seconds (9.8-13.1) 07/21/18 19:07 INR 1.0 07/21/18 19:07 APTT 44.6 Seconds (25.6-37.1) H 07/21/18 19:07 - Additional Findings Additional findings: - Constitutional Appears: No Acute Distress - Head Exam Head Exam: ATRAUMATIC, NORMOCEPHALIC - Eye Exam Eye Exam: EOMI Pupil Exam: PERRL - ENT Exam ENT Exam: Mucous Membranes Moist - Neck Exam Neck exam: Positive for: Full Rom - Respiratory Exam Respiratory Exam: NORMAL BREATHING PATTERN - Cardiovascular Exam Cardiovascular Exam: REGULAR RHYTHM - GI/Abdominal Exam GI & Abdominal Exam: Normal Bowel Sounds, Soft. absent: Tenderness - Extremities Exam Extremities exam: Positive for: normal capillary refill, pedal pulses present. Negative for: calf tenderness - Back Exam Back exam: absent: CVA tenderness (L), CVA tenderness (R) - Neurological Exam Neurological exam: Alert, CN II-XII Intact, Oriented x3 - Psychiatric Exam Psychiatric exam: Flat Affect - Skin Skin Exam: Dry, Intact, Warm Assessment and Plan - Assessment and Plan (Free Text) Assessment: 63 M with chronic right elbow ulcer Plan: -Diet as tolerated -Recommend MRI, if not then need bone scan -pain control -IV abx -patient to go to OR wednesday with Ortho recommend wound vac for dressing then Dr. Raymundo will do delayed closure and/or STSG -Medical/Psych management as per primary -Discussed with Dr. Zackary Coulter PGY2
[2018-07-24 16:53] LABS: BASO % 0.8 % (0.0-2.0); EOS # 0.1 K/uL (0.0-0.7); EOS % 2.6 % (0.0-4.0); HEMOGLOBIN 12.7 g/dL (12.0-18.0); LYMPH % 23.1 % (20.0-40.0); MEAN CELL VOLUME 85.1 fl (80.0-94.0); MEAN CORPUSCULAR HEMOGLOBIN 28.4 pg (27.0-31.0); MEAN CORPUSCULAR HGB CONC 33.3 g/dL (33.0-37.0); MEAN PLATELET VOLUME 7.6 fl (7.2-11.7); MONO # 0.3 K/uL (0.0-0.8); NEUT # 2.9 K/uL (1.8-7.0); NEUT % 66.5 % (50.0-75.0); NRBC % 0.1 % (0.0-0.0); RBC 4.46 Mil/uL (4.40-5.90); RED CELL DISTRIBUTION WIDTH 16.2 % (11.5-14.5); WHITE BLOOD COUNT 4.3 K/uL (4.8-10.8)
[2018-07-24 16:56] LABS: INR 0.9; PROTHROMBIN TIME 10.6 Seconds (9.8-13.1)
[2018-07-24 16:59] LABS: PARTIAL THROMBOPLASTIN TIME 41.8 Seconds (25.6-37.1)
[2018-07-24 17:10] LABS: ALB/GLOB RATIO 1.2 (1.0-2.1); ALBUMIN 3.7 g/dL (3.5-5.0); ALT/SGPT 32 U/L (21-72); AST/SGOT 32 U/L (17-59); BLOOD UREA NITROGEN 15 mg/dl (9-20); CALCIUM 8.7 mg/dL (8.4-10.2); GFR NON-AFRICAN AMERICAN > 60
[2018-07-24 17:42] LABS: URINE BILIRUBIN NEGATIVE (NEGATIVE); URINE BLOOD NEGATIVE (NEGATIVE); URINE CLARITY CLEAR (Clear); URINE COLOR YELLOW (YELLOW); URINE GLUCOSE (UA) NEG (NEGATIVE); URINE LEUKOCYTE ESTERASE NEG Leu/uL (Negative); URINE PROTEIN NEGATIVE (NEGATIVE); URINE UROBILINOGEN 0.2-1.0 mg/dL (0.2-1.0)
--- NOTE | 2018-07-24 23:19 | PN ---
DATE: 07/24/2018 SUBJECTIVE: The patient is seen today, 07/24/2018. He is not in any cardiopulmonary distress. The patient is tolerating well IV antibiotics. PHYSICAL EXAMINATION: VITAL SIGNS: Blood pressure 110/62, temperature 98.2, respiratory rate 18 and pulse 72. HEENT: Pupils are equal and reactive to light. Normal-appearing mucosa of the conjunctivae, oropharynx and nasal membrane mucosa. NECK: Supple. No JVD. No carotid bruit. No lymph node. No thyromegaly. CHEST AND LUNGS: Bilateral symmetrical expansion. Good air exchange. No rales. No rhonchi. CARDIOVASCULAR SYSTEM: PMI not localized. S1 and S2. No additional sounds. ABDOMEN: Normoactive bowel sounds. No tenderness. No organomegaly. No masses. EXTREMITIES: The patient has a right elbow infected wound with purulent discharge. CENTRAL NERVOUS SYSTEM: Alert, awake, oriented x2. No neurological deficit could be appreciated. ASSESSMENT: 1. Infected right elbow wound status post fall. 2. History of depression. PLAN: Continue current antibiotics. Follow recommendations of Orthopedic Surgery. Continue current antibiotics. The patient had a blood work done, which has been unremarkable except for elevation of the PTT. Heparin is being held. We will repeat PT and PTT in the morning. Harini Flynn MD
[2018-07-25] MEDS: Hydrogen Peroxide 3% Soln (480ml) TP SCH (09:27)
[2018-07-25] MEDS: Sodium Chloride 0.9% 1,000 ML IV SCH (09:48)
--- NOTE | 2018-07-25 10:14 | CP.PCM.PN ---
Subjective - Date & Time of Evaluation Date of Evaluation: 07/25/18 Time of Evaluation: 09:30 - Subjective Subjective: Patient seen and examined at bedside comfortable. Pain is well controlled. No acute events overnight. No other complaints. Denies CP/SOB/dizziness/fever. Scheduled for OR today. NPO Objective - Vital Signs/Intake and Output Vital Signs (last 24 hours): Temp Pulse Resp BP Pulse Ox 98 F 67 20 105/67 97 07/25/18 08:43 07/25/18 08:43 07/25/18 08:43 07/25/18 08:43 07/25/18 08:43 - Medications Medications: Current Medications Diphenhydramine HCl (Benadryl) 25 mg PO Q6 PRN PRN Reason: Itching / Pruritus Last Admin: 07/24/18 22:58 Dose: 25 mg Gabapentin (Neurontin) 100 mg PO BID [facility] Last Admin: 07/25/18 09:27 Dose: Not Given Heparin Sodium (Porcine) (Heparin) 5,000 units SC Q12 [facility]; Protocol Last Admin: 07/24/18 08:52 Dose: 5,000 units Hydrogen Peroxide (Hydrogen Peroxide 3%) 237 ml TP DAILY [facility] Last Admin: 07/25/18 09:27 Dose: 237 ml Daptomycin 320 mg/ Sodium (Chloride) 100 mls @ 100 mls/hr IV Q24H [facility]; Protocol Stop: 07/27/18 15:16 Last Admin: 07/24/18 15:47 Dose: 100 mls/hr Sodium Chloride (Sodium Chloride 0.9%) 1,000 mls @ 75 mls/hr IV .[id number] [facility] Stop: 07/26/18 09:39 Last Admin: 07/25/18 09:48 Dose: 75 mls/hr Quetiapine Fumarate (Seroquel) 100 mg PO HS [facility] Last Admin: 07/24/18 21:11 Dose: 100 mg Sertraline HCl (Zoloft) 100 mg PO BID [facility] Last Admin: 07/25/18 09:27 Dose: Not Given - Labs Labs: 07/24/18 16:37 07/24/18 16:37 PT 10.6 Seconds (9.8-13.1) 07/24/18 16:37 INR 0.9 07/24/18 16:37 APTT 42.8 Seconds (25.6-37.1) H 07/25/18 05:55 - Extremities Exam Additional comments: R elbow: open wound over olecranon with surrounding erythema, packing intact mild swelling limited ROM due to pain sensation and motor intact MN/UN/RN radial pulse intact Assessment and Plan (1) Open wound of right elbow Assessment & Plan: -OR today for R elbow wound I&D and arthroscopic elbow washout, plastics closure/wound VAC by plastics -NPO -IV abx as per ID -d/w Dr. Waddell who agrees with above Status: Acute
[2018-07-25] MEDS ORDERED: Etomidate 20 mg/10ml Inj IV ONE (10:38)
[2018-07-25] MEDS ORDERED: Phenylephrine 10 mg/ml Inj ONE (10:38)
[2018-07-25] MEDS ORDERED: Midazolam 2 MG/2 ML VIAL ONE (10:38)
[2018-07-25] MEDS ORDERED: Succinylcholine Chloride 20 mg/ml Syr (5 ml) IV ONE (10:38)
[2018-07-25] MEDS ORDERED: Propofol 10 mg/ml Inj (20 ML) ONE (10:48)
[2018-07-25] MEDS ORDERED: MethylPREDNISolone Depo 40 mg/ml Inj ONE (10:59)
[2018-07-25] MEDS ORDERED: EPINEPHrine 1 mg/ml (1:1000) Inj ONE ×2 (10:59→11:00)
[2018-07-25] MEDS ORDERED: Bacitracin Ointment 30 GM TUBE ONE (11:00)
[2018-07-25] MEDS ORDERED: Bupivacaine 0.5% Inj(30mL) ONE (11:00)
[2018-07-25] MEDS ORDERED: Lactated Ringer's 1,000 ML IV ONE (11:15)
[2018-07-25] MEDS ORDERED: Rocuronium 10 mg/ml (5 ml) ONE (11:26)
[2018-07-25] MEDS ORDERED: Sevoflurane - Inhalation Anesthetic Liq (250 ml) ONE (11:44)
[2018-07-25] MEDS ORDERED: Neostigmine 1:1000 (1 mg/ml) Inj ONE (11:46)
[2018-07-25] MEDS ORDERED: Lidocaine 1% Inj (20ml) ONE (12:01)
[2018-07-25 12:39] LABS: FLUID TYPE SYNOVIAL FLUID
[2018-07-25 13:23] LABS: SF GROSS APPEARANCE CLEAR (CLEAR); SYNOVIAL FLUID COMMENT COLORLESS
--- NOTE | 2018-07-25 13:28 | PCM.ANES ---
Anesthesia Emergent Intubation - Diagnosis Working Diagnosis:: right elbow i and d - Consult Reason for Consult:: pt to have nerve block, alert awake and oriented to person place and time
[2018-07-25] MEDS ORDERED: Ropivacaine 0.5% 30ML IV ONE (13:31)
[2018-07-25] MEDS: HYDROmorphone 0.5 mg/0.5 ml ISec IVP PRN ×4 (13:50→14:30)
[2018-07-25 16:16] LABS: SYNOVIAL FLUID MONO/MACROPHAGE 0 % (0-0)
--- NOTE | 2018-07-25 20:52 | PN ---
DATE: 07/25/2018 SUBJECTIVE: The patient was in the operating room today for debridement of right elbow wound. Discussed with Dr. Waddell who stated that it looks a chronic wound and he irrigated the joint and the patient did well. PHYSICAL EXAMINATION: VITAL SIGNS: Blood pressure 146/79, temperature 97.9, respiratory rate 20 and pulse 71. Right elbow is surgically dressed. NECK: Supple. No JVD. No carotid bruit. No lymph node. No thyromegaly. CHEST AND LUNGS: Bilateral symmetrical expansion. Good air exchange. No rales. No rhonchi. CARDIOVASCULAR SYSTEM: PMI not localized. S1 and S2. No additional sounds. ABDOMEN: Normoactive bowel sounds. No tenderness. No organomegaly. No masses. EXTREMITIES: Right elbow is surgically dressed and there is no cyanosis, clubbing or edema. CENTRAL NERVOUS SYSTEM: Alert, awake, oriented x2. No neurological deficit could be appreciated. ASSESSMENT: 1. Infected right elbow with possible osteomyelitis, chronic. 2. History of depression. 3. Unsteadiness likely peripheral neuropathy. PLAN: Continue current medications and antibiotics as per ID. Follow with Orthopedics. Harini Flynn MD
[2018-07-25] MEDS: Docusate-Senna 50 mg-8.6 mg Tab PO SCH (22:40)
[2018-07-26] MEDS: Lactated Ringer's 1,000 ML IV SCH ×4 (00:55→21:18)
[2018-07-26] MEDS: Sodium Chloride 0.9% 1,000 ML IV SCH ×2 (00:59→03:39)
[2018-07-26 06:08] LABS: HEMOGLOBIN 12.7 g/dL (12.0-18.0); MEAN CELL VOLUME 86.2 fl (80.0-94.0); MEAN CORPUSCULAR HEMOGLOBIN 27.9 pg (27.0-31.0); MEAN CORPUSCULAR HGB CONC 32.4 g/dL (33.0-37.0); RBC 4.54 Mil/uL (4.40-5.90); RED CELL DISTRIBUTION WIDTH 15.8 % (11.5-14.5); WHITE BLOOD COUNT 4.6 K/uL (4.8-10.8)
[2018-07-26 06:17] LABS: BLOOD UREA NITROGEN 15 mg/dl (9-20); CALCIUM 8.8 mg/dL (8.4-10.2); GFR NON-AFRICAN AMERICAN > 60
--- NOTE | 2018-07-26 08:18 | CP.PCM.PN ---
Subjective - Date & Time of Evaluation Date of Evaluation: 07/26/18 Time of Evaluation: 07:30 - Subjective Subjective: Patient seen and examined at bedside. Pain is moderate, using LEATHER SCRUBBER all night. RUE elevated since time of surgery. No acute events overnight. Denies CP/SOB/dizziness/fever. Objective - Vital Signs/Intake and Output Vital Signs (last 24 hours): Temp Pulse Resp BP Pulse Ox 97.6 F 78 20 147/79 97 07/26/18 07:42 07/26/18 07:42 07/26/18 07:42 07/26/18 07:42 07/26/18 07:42 - Medications Medications: Current Medications Acetaminophen (Tylenol 325mg Tab) 650 mg PO Q4 PRN PRN Reason: Fever 101 degrees fahrenheit Diphenhydramine HCl (Benadryl) 25 mg PO Q6 PRN PRN Reason: Itching / Pruritus Last Admin: 07/24/18 22:58 Dose: 25 mg Gabapentin (Neurontin) 100 mg PO BID [facility] Last Admin: 07/25/18 16:23 Dose: 100 mg Heparin Sodium (Porcine) (Heparin) 5,000 units SC Q12 [facility]; Protocol Last Admin: 07/24/18 08:52 Dose: 5,000 units Hydrogen Peroxide (Hydrogen Peroxide 3%) 237 ml TP DAILY [facility] Last Admin: 07/25/18 09:27 Dose: 237 ml Hydromorphone HCl (Dilaudid 0.2 Mg/Ml Shactor Helper) 6 mg IV DAILY [facility]; Protocol Last Admin: 07/26/18 06:54 Dose: 6 mg Hydromorphone HCl (Dilaudid) 1 mg IVP Q4 PRN PRN Reason: Pain, severe (8-10) Daptomycin 320 mg/ Sodium (Chloride) 100 mls @ 100 mls/hr IV Q24H [facility]; Protocol Stop: 07/27/18 15:16 Last Admin: 07/25/18 17:43 Dose: 100 mls/hr Sodium Chloride (Sodium Chloride 0.9%) 1,000 mls @ 75 mls/hr IV .[id number] [facility] Stop: 07/26/18 09:39 Last Admin: 07/26/18 03:39 Dose: Not Given Lactated Ringer's (Lactated Ringer's) 1,000 mls @ 100 mls/hr IV .Q10H [facility] Last Admin: 07/26/18 01:03 Dose: Not Given Meperidine HCl (Demerol) 12.5 mg IVP Q5M PRN PRN Reason: Shivering/Rigor Ondansetron HCl (Zofran Inj) 4 mg IVP Q4 PRN PRN Reason: Nausea/Vomiting Oxycodone/Acetaminophen (Percocet 5/325 Mg Tab) 2 tab PO Q4 PRN PRN Reason: Pain, moderate (4-7) Stop: 07/29/18 14:29 Quetiapine Fumarate (Seroquel) 100 mg PO [facility] Last Admin: 07/25/18 21:45 Dose: 100 mg Senna/Docusate Sodium (Senokot S 50 Mg-8.6 Mg) 2 tab PO [facility] Last Admin: 07/25/18 22:40 Dose: Not Given Sertraline HCl (Zoloft) 100 mg PO BID [facility] Last Admin: 07/25/18 16:23 Dose: 100 mg - Labs Labs: 07/26/18 05:40 07/26/18 05:40 PT 10.6 Seconds (9.8-13.1) 07/24/18 16:37 INR 0.9 07/24/18 16:37 APTT 42.8 Seconds (25.6-37.1) H 07/25/18 05:55 - Extremities Exam Additional comments: RUE: elevated on IV pole mild swelling to fingers Dressings CDI sensation and motor intact MN/UN/RN 2 sec cap refill all fingers Assessment and Plan (1) Open wound of right elbow Assessment & Plan: POD#1 s/p R elbow wound I&D and arthroscopic washout -OR cultures show neg gram stains, cultures to follow -d/c LEATHER SCRUBBER, transition to prn medications -cont. elevation -abx as per ID -d/c planning -above Status: Acute
[2018-07-26] MEDS: oxyCODONE 20 mg ER Tab (oxyCONTIN) PO SCH ×2 (09:30→21:11)
[2018-07-26] MEDS: Hydrogen Peroxide 3% Soln (480ml) TP SCH (09:39)
--- NOTE | 2018-07-26 10:04 | CP.PCM.PN ---
Subjective - Date & Time of Evaluation Date of Evaluation: 07/26/18 Time of Evaluation: 10:04 - Subjective Subjective: ID Note- Patietn seen and examined today. Pt. is POD #1 s/p right elbow I and D and washout. pt's right arm is elevated to IV pole and wrapped in post-surgical dressing he denies any fever or chills. Only c/o pain. Objective - Vital Signs/Intake and Output Vital Signs (last 24 hours): Temp Pulse Resp BP Pulse Ox 97.6 F 78 20 147/79 97 07/26/18 07:42 07/26/18 07:42 07/26/18 07:42 07/26/18 07:42 07/26/18 07:42 - Medications Medications: Current Medications Acetaminophen (Tylenol 325mg Tab) 650 mg PO Q4 PRN PRN Reason: Fever 101 degrees fahrenheit Diphenhydramine HCl (Benadryl) 25 mg PO Q6 PRN PRN Reason: Itching / Pruritus Last Admin: 07/24/18 22:58 Dose: 25 mg Gabapentin (Neurontin) 300 mg PO TID [facility] Last Admin: 07/26/18 09:56 Dose: 300 mg Heparin Sodium (Porcine) (Heparin) 5,000 units SC Q12 [facility]; Protocol Last Admin: 07/26/18 09:33 Dose: 5,000 units Hydrogen Peroxide (Hydrogen Peroxide 3%) 237 ml TP DAILY [facility] Last Admin: 07/26/18 09:39 Dose: Not Given Hydromorphone HCl (Dilaudid) 2 mg IVP Q4 PRN PRN Reason: Pain, severe (8-10) Last Admin: 07/26/18 09:52 Dose: 2 mg Daptomycin 320 mg/ Sodium (Chloride) 100 mls @ 100 mls/hr IV Q24H [facility]; Protocol Stop: 07/27/18 15:16 Last Admin: 07/25/18 17:43 Dose: 100 mls/hr Lactated Ringer's (Lactated Ringer's) 1,000 mls @ 100 mls/hr IV .Q10H [facility] Last Admin: 07/26/18 01:03 Dose: Not Given Meperidine HCl (Demerol) 12.5 mg IVP Q5M PRN PRN Reason: Shivering/Rigor Ondansetron HCl (Zofran Inj) 4 mg IVP Q4 PRN PRN Reason: Nausea/Vomiting Oxycodone HCl (Oxycontin Extended Release Tab) 20 mg PO Q12 [facility] Last Admin: 07/26/18 09:30 Dose: 20 mg Oxycodone/Acetaminophen (Percocet 5/325 Mg Tab) 2 tab PO Q6 PRN PRN Reason: Pain, moderate (4-7) Stop: 07/29/18 10:01 Quetiapine Fumarate (Seroquel) 100 mg PO [facility] Last Admin: 07/25/18 21:45 Dose: 100 mg Senna/Docusate Sodium (Senokot S 50 Mg-8.6 Mg) 2 tab PO [facility] Last Admin: 07/25/18 22:40 Dose: Not Given Sertraline HCl (Zoloft) 100 mg PO BID [facility] Last Admin: 07/26/18 09:31 Dose: 100 mg - Labs Labs: - Additional Findings Additional findings: - Constitutional Appears: No Acute Distress - Head Exam Head Exam: ATRAUMATIC - Eye Exam Eye Exam: EOMI, PERRL - ENT Exam ENT Exam: Normal Oropharynx - Neck Exam Neck exam: Positive for: Full Rom - Respiratory Exam Respiratory Exam: Clear to Auscultation Bilateral, NORMAL BREATHING PATTERN - Cardiovascular Exam Cardiovascular Exam: RRR, +S1, +S2 - GI/Abdominal Exam GI & Abdominal Exam: Normal Bowel Sounds, Soft Additional comments: Nt, ND - Extremities Exam Additional comments: right elbow/arm wrapped in post-surgical dressing and is elevated to the IV pole - Neurological Exam Neurological exam: Alert, Oriented x3 - Skin Additional comments: no new erythematous lesions on the leg or arms. Laboratory Results - last 72 hr 07/24/18 07/24/18 07/24/18 16:37 16:37 16:37 WBC 4.3 L RBC 4.46 Hgb 12.7 Hct 38.0 MCV 85.1 MCH 28.4 MCHC 33.3 RDW 16.2 H Plt Count 173 MPV 7.6 Neut % (Auto) 66.5 Lymph % (Auto) 23.1 [place] % (Auto) 7.0 Eos % (Auto) 2.6 Baso % (Auto) 0.8 Neut # (Auto) 2.9 Lymph # (Auto) 1.0 [place] # (Auto) 0.3 Eos # (Auto) 0.1 Baso # (Auto) 0.0 PT 10.6 INR 0.9 APTT 41.8 H Sodium 139 Potassium 4.3 Chloride 105 Carbon Dioxide 27 Anion Gap 11 BUN 15 Creatinine 0.7 L Est GFR ( Amer) > 60 Est GFR (Non-Af Amer) > 60 Random Glucose 91 Calcium 8.7 Total Bilirubin 0.3 AST 32 ALT 32 Alkaline Phosphatase 82 Total Creatine Kinase Total Protein 6.9 Albumin 3.7 Globulin 3.2 Albumin/Globulin Ratio 1.2 Urine Color Urine Clarity Urine pH Ur Specific Mcgregor Urine Protein Urine Glucose (UA) Urine Ketones Urine Blood Urine Nitrate Urine Bilirubin Urine Urobilinogen Ur Leukocyte Esterase Urine RBC (Auto) Urine Microscopic WBC Fluid Type Synovial WBC Synovial RBC Synovial Neutrophils Synovial Lymphocytes Synov Monos/Macrophage Synovial Fluid Comment 07/24/18 07/25/18 07/25/18 17:31 05:55 12:38 WBC RBC Hgb Hct MCV MCH MCHC RDW Plt Count MPV Neut % (Auto) Lymph % (Auto) [place] % (Auto) Eos % (Auto) Baso % (Auto) Neut # (Auto) Lymph # (Auto) [place] # (Auto) Eos # (Auto) Baso # (Auto) PT INR APTT 42.8 H Sodium Potassium Chloride Carbon Dioxide Anion Gap BUN Creatinine Est GFR ( Amer) Est GFR (Non-Af Amer) Random Glucose Calcium Total Bilirubin AST ALT Alkaline Phosphatase Total Creatine Kinase Total Protein Albumin Globulin Albumin/Globulin Ratio Urine Color Yellow Urine Clarity Clear Urine pH 6.0 Ur Specific Mcgregor 1.017 Urine Protein Negative Urine Glucose (UA) Neg Urine Ketones Negative Urine Blood Negative Urine Nitrate Negative Urine Bilirubin Negative Urine Urobilinogen 0.2-1.0 Ur Leukocyte Esterase Neg Urine RBC (Auto) 3 Urine Microscopic WBC 1 Fluid Type Synovial fluid Synovial WBC 3.0 Synovial RBC 87.0 H Synovial Neutrophils 0.0 Synovial Lymphocytes 0.0 Synov Monos/Macrophage 0 Synovial Fluid Comment Colorless 07/25/18 07/26/18 07/26/18 17:37 05:40 05:40 WBC 4.6 L RBC 4.54 Hgb 12.7 Hct 39.1 MCV 86.2 MCH 27.9 MCHC 32.4 L RDW 15.8 H Plt Count 135 MPV Neut % (Auto) Lymph % (Auto) [place] % (Auto) Eos % (Auto) Baso % (Auto) Neut # (Auto) Lymph # (Auto) [place] # (Auto) Eos # (Auto) Baso # (Auto) PT INR APTT Sodium 139 Potassium 4.2 Chloride 104 Carbon Dioxide 27 Anion Gap 12 BUN 15 Creatinine 0.8 Est GFR ( Amer) > 60 Est GFR (Non-Af Amer) > 60 Random Glucose 115 H Calcium 8.8 Total Bilirubin AST ALT Alkaline Phosphatase Total Creatine Kinase 22 L Total Protein Albumin Globulin Albumin/Globulin Ratio Urine Color Urine Clarity Urine pH Ur Specific Mcgregor Urine Protein Urine Glucose (UA) Urine Ketones Urine Blood Urine Nitrate Urine Bilirubin Urine Urobilinogen Ur Leukocyte Esterase Urine RBC (Auto) Urine Microscopic WBC Fluid Type Synovial WBC Synovial RBC Synovial Neutrophils Synovial Lymphocytes Synov Monos/Macrophage Synovial Fluid Comment Microbiology 07/22/18 14:00 Elbow - Right Gram Stain - Final 07/22/18 14:00 Elbow - Right Wound Culture - Final Methicillin Resistant S Aureus 07/25/18 12:41 Body Fluid - Elbow-Right Gram Stain - Final 07/25/18 12:41 Body Fluid - Elbow-Right Body Fluid Culture - Preliminary NO GROWTH AFTER 24 HOURS 07/25/18 13:48 Elbow - Right Gram Stain - Final 07/25/18 13:48 Elbow - Right Wound Culture - Preliminary NO GROWTH AFTER 24 HOURS 07/25/18 13:48 Elbow - Right Gram Stain - Final 07/25/18 13:48 Elbow - Right Wound Culture - Preliminary NO GROWTH AFTER 24 HOURS 07/25/18 13:48 Elbow - Right Gram Stain - Final 07/25/18 13:48 Elbow - Right Wound Culture - Preliminary NO GROWTH AFTER 24 HOURS 07/25/18 13:48 Elbow - Right Gram Stain - Final 07/25/18 13:48 Elbow - Right Wound Culture - Preliminary NO GROWTH AFTER 24 HOURS 07/25/18 13:48 Elbow - Right Gram Stain - Final 07/25/18 13:48 Elbow - Right Wound Culture - Preliminary NO GROWTH AFTER 24 HOURS 07/25/18 13:48 Elbow - Right Gram Stain - Final 07/25/18 13:48 Elbow - Right Wound Culture - Preliminary NO GROWTH AFTER 24 HOURS 07/25/18 13:48 Elbow - Right Gram Stain - Final 07/25/18 13:48 Elbow - Right Wound Culture - Preliminary NO GROWTH AFTER 24 HOURS 07/21/18 19:07 Blood Blood Culture - Preliminary NO GROWTH AFTER 4 DAYS 07/21/18 19:07 Blood Blood Culture - Preliminary NO GROWTH AFTER 4 DAYS 07/22/18 15:55 Blood-Venous Blood Culture - Preliminary NO GROWTH AFTER 3 DAYS 07/22/18 15:45 Blood-Venous Blood Culture - Preliminary NO GROWTH AFTER 3 DAYS Assessment and Plan (1) Cellulitis of right elbow Status: Acute (2) Osteomyelitis of right elbow Status: Acute - Assessment and Plan (Free Text) Assessment: A/P- 63 year old male with PMH of IVDU, Hep C admitted with right elbow cellulitis post trauma. afebrile normal wbc blood cx-07/17/2018- neg x 2 wound cx 07/17/2018- MRSA with vanco JOAQUÍN of 2 (VISA) repeat wound cx-07/22/2018- MRSA with vanco JOAQUÍN of 1 Ct of the elbow- as per report suggestive of OM ESR-39 ( not too High) OR wound cx- prelim Neg bone Biopsy- pending result Plan- continue with IV daptomycin for MRSA wound infection day #5. await OR bone cx and bone biopsy result to ascertain the length of IV antibiotic therapy. All above d/w patient and he verbalizes full understanding of all above and agrees with above plan of care. all above d/w AIRPORT BAGGAGE SCREENER rolo and Nitesh PA as well.
--- NOTE | 2018-07-26 12:45 | PCM.ANESB1 ---
Interscalene Block - Brachial Plexus Date of Procedure: 07/25/18 Anesthesiologist: rosa Pre-Procedure Diagnosis: r elbow infection i and D Post-Procedure Diagnosis: same Procedure Performed: Interscalene Block of Brachial Plexus Right - Procedure Interscalene Block of Brachial Plexus: This procedure was explained to the patient that it is for post-operative pain management. Consent was obtained after a thorough discussion with the patient regarding the benefits and possible complications of local anesthetic block of the Brachial Plexus at the Interscalene area. The patient was brought to the PACU Room and standard monitors were applied. Time out was held with the circulating nurse to confirm the correct surgery and appropriate block. After applying Oxygen by nasal cannula and administering IV Sedation, the patient's head was gently rotated away from the _right operative extremity and the anterior scalene groove was carefully palpated. The ultrasound transducer was then applied to the skin in the transverse plane and the brachial plexus was visualized lateral to the carotid artery and in between the anterior and middle scalene muscles. After identification,the anterior lateral portion of the neck was prepped with Betadine solution three times and Lidocaine 1% was injected subcutaneously for topical analgesia. At this point, a # 22 gauge Stimuplex 2 inches insulated needle was inserted into the interscalene groove and directed in a caudal and midline direction. The needle was inserted lateral to the ultrasound transducer in-plane towards the brachial plexus in a [id number] direction. Needle advancement was performed carefully under direct ultrasound visualization. Nerve stimulator was used and twitched of the affected extremity including the hand brachialis muscles, biceps and the deltoid was obtained at a current of __2.0___MA. After repeated negative aspiration,__1___cc of__0.5%___,rop ivicaine were injected and this was followed with 19 cc of _0.5____% __ropivicaine . Under ultrasound guidance the local anesthetics were observed surrounding the roots of the brachial plexus. The needle was removed intact and sterile dressing was applied. The patient had stable vital signs, was conscious and in no apparent distress. The patient tolerated the interscalene block of the bracheal plexus well with stable vital signs.
[2018-07-26] MEDS ORDERED: Oxycodone/Acetaminophen 5/325 mg Tab PO PRN (14:28)
--- NOTE | 2018-07-26 20:25 | PCM.SURG1 ---
Surgeon's Initial Post Op Note - Surgeon's Notes Surgeon: Nadira Bottling Equipment Sales Representative: STEPHANIE Chappell Type of Anesthesia: General Endo Pre-Operative Diagnosis: R/O septic R elbow. r/o osteomyelitis r elbow Operative Findings: no evidence for deep sepsis r elbow. no definitve evidence of osteomyelitis on gross inspection. olecranon bursitis. olecranon eschar and chronic ulcer Post-Operative Diagnosis: no evidence for deep sepsis r elbow. no rosalina evidence for osteomyelitis. olecranon bursitis. eschar posterior olecranon. synovitis r elbow joint. rent/tear triceps tendon. synovitis r elbow joint Operation Performed: repair triceps tendon. surgical arthroscopy extensive synovectomy r elbow. surg arthroscopy incision and drainage r elbow- culture and bx. surg arthroscopy synovectomy r elbow. excison olecranon bursa. bone biopsy. excision skin/ debridement ulcer and primary closure chronic olecranon ulcer Specimen/Specimens Removed: eschar/bone biopsy (olecranon)/ fluid sent to lab fro numkber of white cells per hi power field Estimated Blood Loss: EBL {In ML}: 5 Blood Products Given: N/A Drains Used: No Drains Post-Op Condition: Fair Date of Surgery/Procedure: 07/25/18 Time of Surgery/Procedure: 12:00 (time min room 11:20/beronica stephensone 11:20)
--- NOTE | 2018-07-26 20:56 | PN ---
DATE: 07/26/2018 SUBJECTIVE: The patient is seen today, 07/26/2018, postoperative day #1. PHYSICAL EXAMINATION: VITAL SIGNS: Blood pressure 133/71, temperature 97.8, respiratory rate 20 and pulse 72. HEENT: Pupils are equal and reactive to light. Normal-appearing mucosa of the conjunctivae, oropharynx and nasal membrane mucosa. NECK: Supple. No JVD. No carotid bruit. No lymph node. No thyromegaly. CHEST AND LUNGS: Bilateral symmetrical expansion. Good air exchange. No rales. No rhonchi. CARDIOVASCULAR SYSTEM: PMI not localized. S1 and S2. No additional sounds. ABDOMEN: Normoactive bowel sounds. No tenderness. No organomegaly. No masses. EXTREMITIES: No cyanosis. No clubbing. No edema. Right elbow is surgically dressed and it is lifted by a sling. CENTRAL NERVOUS SYSTEM: Alert, awake, oriented x2. No neurological deficit could be appreciated. ASSESSMENT: 1. Infected wound of the right elbow with possible osteomyelitis. 2. History of depression. PLAN: Continue current IV antibiotics. Follow ID and Orthopedic recommendations. Harini Flynn MD
[2018-07-26] MEDS: Docusate-Senna 50 mg-8.6 mg Tab PO SCH (21:14)
[2018-07-27] MEDS: Docusate-Senna 50 mg-8.6 mg Tab PO SCH ×2 (06:01→21:43)
--- NOTE | 2018-07-27 06:20 | OP ---
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 approximately 9 days ago with "abrasion." The patient was treated and released. The patient presented back to his primary doctor, who referred the patient back to the emergency room and on the patient was readmitted. The patient was seen Wednesday morning by myself and by the Plastic Surgery Service. On evidence, there was a chronic nonhealing eschar of the elbow, This could not have happened a week later or 2 weeks ago, this has been a chronic situation. There was no evidence of deep sepsis, the patient was admitted. The patient receives workup including MRI examination, CT scan examination, and plain x-rays were offered. There was question of sepsis in the elbow, both osteomyelitis and deep sepsis. On history and physical examination, there was no evidence of deep sepsis. The patient had a freely movable elbow and no increasing erythema. The patient did have culture positive MRSA from the eschar. The patient was taken to surgery at this point in time. Pros, cons, risks, and benefits of surgical arthroscopy, flexor synovectomy, irrigation and debridement and lavage were discussed. The possibility of bone biopsy was discussed as well and the possibility of irrigation and primary closure was discussed, possibility of secondary surgery by the Plastic Surgery Service was discussed, the possibility of recurrent infection, thromboembolic disease, stiffness and nerve injury were discussed. The patient wished the surgery to be accomplished. The patient is a documented substance abuser including heroin. PREOPERATIVE DIAGNOSIS: Rule out septic elbow, rule out osteomyelitis. POSTOPERATIVE DIAGNOSES: 1. No evidence for deep sepsis in the right elbow, rule out osteomyelitis. 2. Chronic eschar at the bone of the olecranon. OPERATIVE PROCEDURES: Surgical arthroscopy, extensive debridement. Again the possibility of the deep sepsis had been entertained and arthroscopy, lavage, irrigation and debridement, incision and drainage were chosen arthroscopically. DEFINITIVE OPERATIVE PROCEDURES: 1. Primary repair of triceps tendon insertion. 2. Surgical arthroscopy, extensive synovectomy. 3. Surgical arthroscopy of the right elbow, incision and drainage, irrigation and debridement. 4. Excision of olecranon bursa and eschar. 5. Excision of skin and subcutaneous tissue, and application of Luan Herrera compression dressing. SURGEON: Jose Waddell MD AIRPLANE NAVIGATOR: LUANA White. ANESTHESIA: General endotracheal anesthesia. COMPLICATIONS: No complications. DRAINS: No drains. DESCRIPTION OF PROCEDURE: After having obtained informed consent in the above fashion, after the satisfactory induction of general endotracheal anesthesia, after having identified the side, site and procedure and a critical pause/time-out, the patient was identified as Enoch Hobbs, in supine position with all bony prominence well padded, the right upper extremity was prepped and free draped in the usual fashion for upper extremity surgery. The tourniquet had been applied, but was not yet inflated. After exsanguinating the limb using a 4-inch Esmarch bandage, the tourniquet, which had been applied was inflated to 250 mmHg. This having been accomplished, the joint was insufflated with 10 mL of saline. The portal was accomplished anteriorly and laterally. The radial head was identified by pronation and supination and the lateral epicondyle was identified. The joint was insufflated, then using a #11 blade followed by spreading, followed by introduction of the blunt trocar, the arthroscope was introduced. There was no egress of fluid. There was no evidence of pus and the fluid obtained is sent for stat Gram stain, number of white cells per high-power field, aerobic, anaerobic, AFB and fungal cultures. A thorough examination of the joint commences, please refer to the video photographs. A secondary portal was accomplished using #18-gauge spinal needle, followed by #11 blade, and followed by spreading. With the arthroscope in that region, the shaver was employed, the arthroscope being employed, an extensive synovectomy was accomplished. Again, there was no evidence of purulence. No evidence of sepsis. There was evidence of some chondral damage, which appears to be chronic. There was no gross evidence of osteomyelitis, periosteal reaction with periosteal elevation. There was evidence of only chondral stuffing which may be age appropriate. Chondroplasty was accomplished. Thorough synovectomy was accomplished. Great care was taken to avoid injury to any nerve structure including and being very cognizant to the posterior interosseous branch of the radial nerve. Incision and drainage, irrigation and debridement having been accomplished at this point in time with the elbow flexed and elevated on bolsters, an incision was accomplished using #15 blade a wide ellipse was excised and was undermined. There was found to be again the gross eschar, which was chronic. The eschar was excised. There was found to be evidence of a olecranon bursa speaking for the duration of this process. This was certainly not an acute scratch or an abrasion, which caused this. It is clearly chronic compression over a long period of time. This having been accomplished, the olecranon bursa was identified and olecranon bursectomy was accomplished. At this point in time, the triceps tendon was found to be somewhat compromised as well. Careful excision was made through the triceps tendon to get to the point of the olecranon. This having been accomplished, using the Medialiveshidi needle, this was introduced into the olecranon, it was advanced, the trocar was removed. The needle was introduced and advanced by turning and at this point in time, the needle was removed. The obturator was placed into the tube and the bone specimen was directly extracted. This was accomplished 3 times and 3 bony specimens were sent, informed to the lab again the lab had also obtained aerobic, anaerobic, AFB and fungal cultures. The wound was thoroughly irrigated. Olecranon bursectomy having been accomplished, there was primary repair of the triceps tendon using interrupted FiberWire sutures. The ends of the eschar having been excised, the skin edges were excised as well, mobilized and closure in layers with interrupted Vicryl and a combination of socrates and Vicryl with nylon for the arthroscopic portals. Luan Herrera compression dressing was applied. Again, it should be noted that this patient is a chronic drug abuser and has hepatitis C, although he due to the fact that he has hepatitic C that he "cured himself. The patient had cleared himself an unreliable clinical history, the operation was carefully planned and executed with that as part of the history and physical examination. The concept with primary closure had been accomplished after extensive irrigation had been accomplished and the concept that a secondary procedure may be necessary for repeat irrigation and debridement of the primary closure were discussed in length with the patient. Jose Waddell MD [email or web address]
[2018-07-27] MEDS: Lactated Ringer's 1,000 ML IV SCH (06:48)
[2018-07-27 07:08] LABS: HEMOGLOBIN 12.5 g/dL (12.0-18.0); MEAN CELL VOLUME 86.6 fl (80.0-94.0); MEAN CORPUSCULAR HEMOGLOBIN 28.2 pg (27.0-31.0); MEAN CORPUSCULAR HGB CONC 32.6 g/dL (33.0-37.0); RBC 4.45 Mil/uL (4.40-5.90); RED CELL DISTRIBUTION WIDTH 15.9 % (11.5-14.5); WHITE BLOOD COUNT 4.5 K/uL (4.8-10.8)
[2018-07-27 07:26] LABS: BLOOD UREA NITROGEN 10 mg/dl (9-20); CALCIUM 8.9 mg/dL (8.4-10.2); GFR NON-AFRICAN AMERICAN > 60
[2018-07-27] MEDS: oxyCODONE 20 mg ER Tab (oxyCONTIN) PO SCH ×2 (09:15→21:46)
[2018-07-27] MEDS ORDERED: Lidocaine Hydrochloride 1% 10 ML ONE (10:10)
--- NOTE | 2018-07-27 10:22 | PCM.SURG1 ---
Surgeon's Initial Post Op Note - Surgeon's Notes Surgeon: Kieran Carlson MD [facility] Nurse: NONE Type of Anesthesia: Local Pre-Operative Diagnosis: Infection Operative Findings: US showed a patent left basilic vein Post-Operative Diagnosis: Infection Operation Performed: Single lumen picc placement left arm, 43 cm. Tip is in the SVC. Specimen/Specimens Removed: NOne Estimated Blood Loss: EBL {In ML}: 2 Blood Products Given: N/A Drains Used: No Drains Post-Op Condition: Fair Date of Surgery/Procedure: 07/27/18 Time of Surgery/Procedure: 10:20
--- NOTE | 2018-07-27 11:24 | VASCULAR ---
PROCEDURE: Date of procedure: 07/27/2018 Procedure: 1. Placement of a left arm PICC with ultrasound and fluoroscopic guidance, CPT 48044 2. PICC tip confirmation with spot radiograph and is in the superior vena cava Medications: 1 percent lidocaine Total Fluoro time: 5.7 Seconds Radiation: 0.67 MGy EBL: 3 cc HISTORY: Infection requiring long-term IV antibiotics TECHNIQUE: Following informed consent and procedure time-out, the patient placed supine on the interventional table and the left arm prepped and draped in the usual sterile fashion. Ultrasound showed a patent and compressible left basilic vein. After the skin was anesthetized with lidocaine, the basilic vein was accessed with micro micropuncture technique using ultrasound guidance. A guidewire was then advanced under fluoroscopic guidance into the superior vena cava. An image documenting ultrasound guidance for vascular access was permanently saved. The length of a single-lumen 4 [place] PICC was trimmed to 43 cm and advanced through a peel-away sheath. The PICC was position with tip of PICC confirm a spot radiograph the superior vena cava. The PICC was secured to the patient's skin. The PICC was flushed. A biopatch and sterile dressing was applied. IMPRESSION: Placement of a single-lumen 4 [place] PICC left basilic vein trimmed to 43 cm. The tip of the PICC is confirmed with spot radiograph and is in the superior vena cava.
--- NOTE | 2018-07-27 14:34 | CP.PCM.PN ---
Subjective - Date & Time of Evaluation Date of Evaluation: 07/27/18 Time of Evaluation: 12:00 - Subjective Subjective: Patient seen and examined at bedside comfortable. 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 Was able to ambulate OOB with PT without aid. PICC inserted for detention IV abx. No other complaints. Objective - Vital Signs/Intake and Output Vital Signs (last 24 hours): Temp Pulse Resp BP Pulse Ox 98.4 F 75 18 138/74 97 07/27/18 10:08 07/27/18 13:26 07/27/18 10:08 07/27/18 10:08 07/27/18 13:26 Intake and Output: 07/27/18 07/27/18 06:59 18:59 Intake Total 1200 Balance 1200 - Medications Medications: Current Medications Acetaminophen (Tylenol 325mg Tab) 650 mg PO Q4 PRN PRN Reason: Fever 101 degrees fahrenheit Diphenhydramine HCl (Benadryl) 25 mg PO Q6 PRN PRN Reason: Itching / Pruritus Last Admin: 07/24/18 22:58 Dose: 25 mg Gabapentin (Neurontin) 300 mg PO TID [facility] Last Admin: 07/27/18 09:08 Dose: 300 mg Heparin Sodium (Porcine) (Heparin) 5,000 units SC Q12 [facility]; Protocol Last Admin: 07/27/18 09:07 Dose: 5,000 units Hydrogen Peroxide (Hydrogen Peroxide 3%) 237 ml TP DAILY [facility] Last Admin: 07/26/18 09:39 Dose: Not Given Hydromorphone HCl (Dilaudid) 2 mg IVP Q4 PRN PRN Reason: Pain, severe (8-10) Last Admin: 07/27/18 10:58 Dose: 2 mg Daptomycin 320 mg/ Sodium (Chloride) 100 mls @ 100 mls/hr IV Q24H [facility]; Protocol Stop: 07/27/18 15:16 Last Admin: 07/26/18 15:42 Dose: 100 mls/hr Lactated Ringer's (Lactated Ringer's) 1,000 mls @ 100 mls/hr IV .Q10H [facility] Last Admin: 07/27/18 06:48 Dose: Not Given Meperidine HCl (Demerol) 12.5 mg IVP Q5M PRN PRN Reason: Shivering/Rigor Ondansetron HCl (Zofran Inj) 4 mg IVP Q4 PRN PRN Reason: Nausea/Vomiting Oxycodone HCl (Oxycontin Extended Release Tab) 20 mg PO Q12 [facility] Last Admin: 07/27/18 09:15 Dose: 20 mg Oxycodone/Acetaminophen (Percocet 5/325 Mg Tab) 2 tab PO Q6 PRN PRN Reason: Pain, moderate (4-7) Stop: 07/29/18 10:01 Quetiapine Fumarate (Seroquel) 100 mg PO HS [facility] Last Admin: 07/26/18 21:14 Dose: 100 mg Senna/Docusate Sodium (Senokot S 50 Mg-8.6 Mg) 2 tab PO HS [facility] Last Admin: 07/27/18 06:01 Dose: 2 tab Sertraline HCl (Zoloft) 100 mg PO BID [facility] Last Admin: 07/27/18 09:09 Dose: 100 mg - Labs Labs: 07/27/18 06:45 07/27/18 06:45 PT 10.6 Seconds (9.8-13.1) 07/24/18 16:37 INR 0.9 07/24/18 16:37 APTT 42.8 Seconds (25.6-37.1) H 07/25/18 05:55 - Extremities Exam Additional comments: RUE: elevated on IV pole minimal swelling to fingers Dressings CDI sensation and motor intact MN/UN/RN 2 sec cap refill all fingers Assessment and Plan (1) Open wound of right elbow Assessment & Plan: POD#2 s/p R elbow wound I&D and arthroscopic washout -OR cultures NGTD, bone biopsy to follow -pain mgmt on board -abx as per ID -d/c planning to [facility] for IV abx, unsafe d/c to home -d/w Dr. Waddell who agrees with above Status: Acute
--- NOTE | 2018-07-27 15:07 | PN ---
DATE: 07/27/2018 SUBJECTIVE: The patient is seen today, 07/27/2018. He is on IV antibiotics, status post debridement of the right elbow wound. PHYSICAL EXAMINATION: VITAL SIGNS: Blood pressure is 135/77, temperature 98.4, respiratory rate 18 and pulse 75. HEENT: Pupils equal, reactive to light. Normal-appearing mucosa of the conjunctivae, oropharynx and nasal membrane mucosa. NECK: Supple. No JVD. No carotid bruit. No lymph node, no thyromegaly. CHEST AND LUNGS: Bilateral symmetrical expansion. Good air exchange. No rales, no rhonchi. CARDIOVASCULAR: PMI not localized. S1, S2, no additional sounds. ABDOMEN: Normoactive bowel sounds. No tenderness, no organomegaly, no masses. EXTREMITIES: No cyanosis, no clubbing, no edema. CENTRAL NERVOUS SYSTEM: Alert, awake, oriented x2. No neurological deficit could be appreciated. ASSESSMENT: 1. Infected right elbow wound. 2. History of depression. 3. History of intravenous drug abuse, heroin. PLAN: Continue current IV antibiotics and follow Orthopedic and ID recommendations regarding the duration of therapy. Discussed with Social Service for possible discharge to subacute rehabilitation. Harini Flynn MD
[2018-07-27] MEDS: Oxycodone/Acetaminophen 5/325 mg Tab PO PRN (15:09)
[2018-07-27] MEDS: Hydrogen Peroxide 3% Soln (480ml) TP SCH (15:09)
[2018-07-28] MEDS: Oxycodone/Acetaminophen 5/325 mg Tab PO PRN ×4 (00:25→17:39)
[2018-07-28] MEDS: Lactated Ringer's 1,000 ML IV SCH ×3 (04:54→23:00)
[2018-07-28] MEDS: oxyCODONE 20 mg ER Tab (oxyCONTIN) PO SCH ×2 (09:11→21:05)
--- NOTE | 2018-07-28 09:20 | CP.PCM.PN ---
Subjective - Date & Time of Evaluation Date of Evaluation: 07/28/18 Time of Evaluation: 11:00 - Subjective Subjective: Patient seen and examined at bedside comfortable. Pain controlled. No acute events overnight. No new complaints. Objective - Vital Signs/Intake and Output Vital Signs (last 24 hours): Temp Pulse Resp BP Pulse Ox 98.3 F 81 20 100/63 95 07/28/18 08:15 07/28/18 08:15 07/28/18 08:15 07/28/18 08:15 07/28/18 08:15 Intake and Output: 07/28/18 07/28/18 06:59 18:59 Intake Total 480 Balance 480 - Medications Medications: Current Medications Acetaminophen (Tylenol 325mg Tab) 650 mg PO Q4 PRN PRN Reason: Fever 101 degrees fahrenheit Diphenhydramine HCl (Benadryl) 25 mg PO Q6 PRN PRN Reason: Itching / Pruritus Last Admin: 07/24/18 22:58 Dose: 25 mg Gabapentin (Neurontin) 300 mg PO TID [facility] Last Admin: 07/28/18 09:08 Dose: 300 mg Heparin Sodium (Porcine) (Heparin) 5,000 units SC Q12 [facility]; Protocol Last Admin: 07/28/18 09:07 Dose: 5,000 units Hydrogen Peroxide (Hydrogen Peroxide 3%) 237 ml TP DAILY [facility] Last Admin: 07/27/18 15:09 Dose: Not Given Hydromorphone HCl (Dilaudid) 2 mg IVP Q4 PRN PRN Reason: Pain, severe (8-10) Last Admin: 07/27/18 19:23 Dose: 2 mg Lactated Ringer's (Lactated Ringer's) 1,000 mls @ 100 mls/hr IV .Q10H [facility] Last Admin: 07/28/18 04:54 Dose: Not Given Daptomycin 320 mg/ Sodium (Chloride) 100 mls @ 100 mls/hr IV Q24H [facility]; Protocol Stop: 08/01/18 17:16 Last Admin: 07/27/18 18:11 Dose: 100 mls/hr Meperidine HCl (Demerol) 12.5 mg IVP Q5M PRN PRN Reason: Shivering/Rigor Ondansetron HCl (Zofran Inj) 4 mg IVP Q4 PRN PRN Reason: Nausea/Vomiting Oxycodone HCl (Oxycontin Extended Release Tab) 20 mg PO Q12 [facility] Last Admin: 07/28/18 09:11 Dose: 20 mg Oxycodone/Acetaminophen (Percocet 5/325 Mg Tab) 2 tab PO Q6 PRN PRN Reason: Pain, moderate (4-7) Stop: 07/29/18 10:01 Last Admin: 07/28/18 06:22 Dose: 2 tab Quetiapine Fumarate (Seroquel) 100 mg PO HS [facility] Last Admin: 07/27/18 21:43 Dose: 100 mg Senna/Docusate Sodium (Senokot S 50 Mg-8.6 Mg) 2 tab PO HS [facility] Last Admin: 07/27/18 21:43 Dose: 2 tab Sertraline HCl (Zoloft) 100 mg PO BID [facility] Last Admin: 07/28/18 09:08 Dose: 100 mg - Labs Labs: 07/27/18 06:45 07/27/18 06:45 PT 10.6 Seconds (9.8-13.1) 07/24/18 16:37 INR 0.9 07/24/18 16:37 APTT 42.8 Seconds (25.6-37.1) H 07/25/18 05:55 - Extremities Exam Additional comments: RUE: Dressings CDI Wound CDI with nylon sutures sensation and motor intact MN/UN/RN 2 sec cap refill all fingers Assessment and Plan (1) Open wound of right elbow Assessment & Plan: POD#3 s/p R elbow wound I&D and arthroscopic washout -OR cultures NGTD, bone biopsy to follow -Dressings as per Dr. Raymundo -abx as per ID -orthopedically stable for d/c to [facility] for IV abx -d/w Dr. Waddell who agrees with above Status: Acute
[2018-07-28] MEDS: Hydrogen Peroxide 3% Soln (480ml) TP SCH (09:22)
--- NOTE | 2018-07-28 10:21 | CP.PCM.PN ---
Subjective - Date & Time of Evaluation Date of Evaluation: 07/28/18 Time of Evaluation: 10:21 - Subjective Subjective: ID Note- Pt. seen and examined with the ATTORNEY AT [employer] and nurse. patient denies any fever ro chills. his states he feels better today. Objective - Vital Signs/Intake and Output Vital Signs (last 24 hours): Temp Pulse Resp BP Pulse Ox 98.3 F 81 20 100/63 95 07/28/18 08:15 07/28/18 08:15 07/28/18 08:15 07/28/18 08:15 07/28/18 08:15 Intake and Output: 07/28/18 07/28/18 06:59 18:59 Intake Total 480 Balance 480 - Medications Medications: Current Medications Acetaminophen (Tylenol 325mg Tab) 650 mg PO Q4 PRN PRN Reason: Fever 101 degrees fahrenheit Diphenhydramine HCl (Benadryl) 25 mg PO Q6 PRN PRN Reason: Itching / Pruritus Last Admin: 07/24/18 22:58 Dose: 25 mg Gabapentin (Neurontin) 300 mg PO TID [facility] Last Admin: 07/28/18 09:08 Dose: 300 mg Heparin Sodium (Porcine) (Heparin) 5,000 units SC Q12 [facility]; Protocol Last Admin: 07/28/18 09:07 Dose: 5,000 units Hydrogen Peroxide (Hydrogen Peroxide 3%) 237 ml TP DAILY [facility] Last Admin: 07/28/18 09:22 Dose: Not Given Hydromorphone HCl (Dilaudid) 2 mg IVP Q4 PRN PRN Reason: Pain, severe (8-10) Last Admin: 07/27/18 19:23 Dose: 2 mg Lactated Ringer's (Lactated Ringer's) 1,000 mls @ 100 mls/hr IV .Q10H [facility] Last Admin: 07/28/18 04:54 Dose: Not Given Daptomycin 320 mg/ Sodium (Chloride) 100 mls @ 100 mls/hr IV Q24H [facility]; Protocol Stop: 08/01/18 17:16 Last Admin: 07/27/18 18:11 Dose: 100 mls/hr Meperidine HCl (Demerol) 12.5 mg IVP Q5M PRN PRN Reason: Shivering/Rigor Ondansetron HCl (Zofran Inj) 4 mg IVP Q4 PRN PRN Reason: Nausea/Vomiting Oxycodone HCl (Oxycontin Extended Release Tab) 20 mg PO Q12 [facility] Last Admin: 07/28/18 09:11 Dose: 20 mg Oxycodone/Acetaminophen (Percocet 5/325 Mg Tab) 2 tab PO Q6 PRN PRN Reason: Pain, moderate (4-7) Stop: 07/29/18 10:01 Last Admin: 07/28/18 06:22 Dose: 2 tab Quetiapine Fumarate (Seroquel) 100 mg PO [facility] Last Admin: 07/27/18 21:43 Dose: 100 mg Senna/Docusate Sodium (Senokot S 50 Mg-8.6 Mg) 2 tab PO [facility] Last Admin: 07/27/18 21:43 Dose: 2 tab Sertraline HCl (Zoloft) 100 mg PO BID [facility] Last Admin: 07/28/18 09:08 Dose: 100 mg - Labs Labs: - Additional Findings Additional findings: - Constitutional Appears: No Acute Distress - Head Exam Head Exam: ATRAUMATIC - Eye Exam Eye Exam: EOMI, PERRL - ENT Exam ENT Exam: Normal Oropharynx - Neck Exam Neck exam: Positive for: Full Rom - Respiratory Exam Respiratory Exam: Clear to Auscultation Bilateral, NORMAL BREATHING PATTERN - Cardiovascular Exam Cardiovascular Exam: RRR, +S1, +S2 - GI/Abdominal Exam GI & Abdominal Exam: Normal Bowel Sounds, Soft Additional comments: Nt, ND - Extremities Exam Additional comments: right elbow surgical site with sutures in place, no discharge, minimal erythema and edema - Neurological Exam Neurological exam: Alert, Oriented x 3 Laboratory Results - last 72 hr 07/25/18 07/25/18 07/26/18 12:38 17:37 05:40 WBC 4.6 L RBC 4.54 Hgb 12.7 Hct 39.1 MCV 86.2 MCH 27.9 MCHC 32.4 L RDW 15.8 H Plt Count 135 Sodium Potassium Chloride Carbon Dioxide Anion Gap BUN Creatinine Est GFR ( Amer) Est GFR (Non-Af Amer) Random Glucose Calcium Total Creatine Kinase 22 L Fluid Type Synovial fluid Synovial WBC 3.0 Synovial RBC 87.0 H Synovial Neutrophils 0.0 Synovial Lymphocytes 0.0 Synov Monos/Macrophage 0 Synovial Fluid Comment Colorless 07/26/18 07/27/18 07/27/18 05:40 06:45 06:45 WBC 4.5 L RBC 4.45 Hgb 12.5 Hct 38.5 MCV 86.6 MCH 28.2 MCHC 32.6 L RDW 15.9 H Plt Count 130 Sodium 139 136 Potassium 4.2 4.1 Chloride 104 104 Carbon Dioxide 27 23 Anion Gap 12 13 BUN 15 10 Creatinine 0.8 0.9 Est GFR ( Amer) > 60 > 60 Est GFR (Non-Af Amer) > 60 > 60 Random Glucose 115 H 124 H Calcium 8.8 8.9 Total Creatine Kinase Fluid Type Synovial WBC Synovial RBC Synovial Neutrophils Synovial Lymphocytes Synov Monos/Macrophage Synovial Fluid Comment Microbiology 07/25/18 12:41 Body Fluid - Elbow-Right Gram Stain - Final 07/25/18 12:41 Body Fluid - Elbow-Right Anaerobic Culture - Final NO ANAEROBES ISOLATED. 07/25/18 12:41 Body Fluid - Elbow-Right Body Fluid Culture - Preliminary NO GROWTH AFTER 3 DAYS 07/25/18 13:48 Elbow - Right Gram Stain - Final 07/25/18 13:48 Elbow - Right Wound Culture - Final No growth. 07/25/18 13:48 Elbow - Right Gram Stain - Final 07/25/18 13:48 Elbow - Right Wound Culture - Final No growth. 07/25/18 13:48 Elbow - Right Gram Stain - Final 07/25/18 13:48 Elbow - Right Wound Culture - Final No growth. 07/25/18 13:48 Elbow - Right Gram Stain - Final 07/25/18 13:48 Elbow - Right Wound Culture - Final No growth. 07/25/18 13:48 Elbow - Right Gram Stain - Final 07/25/18 13:48 Elbow - Right Wound Culture - Final No growth. 07/25/18 13:48 Elbow - Right Gram Stain - Final 07/25/18 13:48 Elbow - Right Wound Culture - Final No growth. 07/25/18 13:48 Elbow - Right Gram Stain - Final 07/25/18 13:48 Elbow - Right Wound Culture - Final No growth. 07/22/18 15:55 Blood-Venous Blood Culture - Final NO GROWTH AFTER 5 DAYS 07/22/18 15:55 Blood-Venous Gram Stain - Final TEST NOT PERFORMED 07/22/18 15:45 Blood-Venous Blood Culture - Final NO GROWTH AFTER 5 DAYS 07/22/18 15:45 Blood-Venous Gram Stain - Final TEST NOT PERFORMED 07/25/18 12:41 Other: Please Indicate Gram Stain - Final 07/25/18 12:41 Other: Please Indicate Mycobacterial Culture - Preliminary 07/25/18 12:41 Elbow - Right Anaerobic Culture - Final NO ANAEROBES ISOLATED. 07/21/18 19:07 Blood Blood Culture - Final NO GROWTH AFTER 5 DAYS 07/21/18 19:07 Blood Gram Stain - Final TEST NOT PERFORMED 07/21/18 19:07 Blood Blood Culture - Final NO GROWTH AFTER 5 DAYS 07/21/18 19:07 Blood Gram Stain - Final TEST NOT PERFORMED 07/22/18 14:00 Elbow - Right Gram Stain - Final 07/22/18 14:00 Elbow - Right Wound Culture - Final Methicillin Resistant S Aureus Assessment and Plan (1) Cellulitis of right elbow Status: Acute (2) Osteomyelitis of right elbow Status: Acute - Assessment and Plan (Free Text) Assessment: A/P- 63 year old male with PMH of IVDU, Hep C admitted with right elbow cellulitis post trauma. afebrile normal wbc blood cx-07/17/2018- neg x 2 wound cx 07/17/2018- MRSA with vanco JOAQUÍN of 2 (VISA) repeat wound cx-07/22/2018- MRSA with vanco JOAQUÍN of 1 Ct of the elbow- as per report suggestive of OM ESR-39 ( not too High) OR wound cx- all negative so far Bone biopsy as per path report - Negative for OM. bone Biopsy- pending result Plan- continue with IV daptomycin for MRSA wound infection day #7 since bone biopsy was negative for OM and OR wound cx are negative advise total of 2 weeks of IV antibiotics ( 7 more adys of daptomycin). after that pt. can be switched to oral doxycycline for another week. pt. to avoid sun exposure while on doxy. Pt. advised to f/u with his Pcp and to f/u with ortho as outpatient as well. All above d/w patient at length and he verbalizes full understanding of all above and agrees with above plan of care.
--- NOTE | 2018-07-28 11:13 | CP.PCM.PN ---
Subjective - Date & Time of Evaluation Date of Evaluation: 07/28/18 Time of Evaluation: 10:30 - Subjective Subjective: Plastic Surgery progress note for Dr. Raymundo Patient seen and examined this morning at bedside. Patient states he is feeling well and his pain is well controlled. He endorsesfull motor sensory function of his right arm and hand. He denies swelling in his right arm. 12 point ROS otherwise negative Objective - Vital Signs/Intake and Output Vital Signs (last 24 hours): Temp Pulse Resp BP Pulse Ox 98.3 F 81 20 100/63 95 07/28/18 08:15 07/28/18 08:15 07/28/18 08:15 07/28/18 08:15 07/28/18 08:15 Intake and Output: 07/28/18 07/28/18 06:59 18:59 Intake Total 480 Balance 480 - Medications Medications: Current Medications Acetaminophen (Tylenol 325mg Tab) 650 mg PO Q4 PRN PRN Reason: Fever 101 degrees fahrenheit Diphenhydramine HCl (Benadryl) 25 mg PO Q6 PRN PRN Reason: Itching / Pruritus Last Admin: 07/24/18 22:58 Dose: 25 mg Gabapentin (Neurontin) 300 mg PO TID [facility] Last Admin: 07/28/18 09:08 Dose: 300 mg Heparin Sodium (Porcine) (Heparin) 5,000 units SC Q12 [facility]; Protocol Last Admin: 07/28/18 09:07 Dose: 5,000 units Hydrogen Peroxide (Hydrogen Peroxide 3%) 237 ml TP DAILY [facility] Last Admin: 07/28/18 09:22 Dose: Not Given Hydromorphone HCl (Dilaudid) 2 mg IVP Q4 PRN PRN Reason: Pain, severe (8-10) Last Admin: 07/27/18 19:23 Dose: 2 mg Lactated Ringer's (Lactated Ringer's) 1,000 mls @ 100 mls/hr IV .Q10H [facility] Last Admin: 07/28/18 04:54 Dose: Not Given Daptomycin 320 mg/ Sodium (Chloride) 100 mls @ 100 mls/hr IV Q24H [facility]; Protocol Stop: 08/01/18 17:16 Last Admin: 07/27/18 18:11 Dose: 100 mls/hr Meperidine HCl (Demerol) 12.5 mg IVP Q5M PRN PRN Reason: Shivering/Rigor Ondansetron HCl (Zofran Inj) 4 mg IVP Q4 PRN PRN Reason: Nausea/Vomiting Oxycodone HCl (Oxycontin Extended Release Tab) 20 mg PO Q12 [facility] Last Admin: 07/28/18 09:11 Dose: 20 mg Oxycodone/Acetaminophen (Percocet 5/325 Mg Tab) 2 tab PO Q6 PRN PRN Reason: Pain, moderate (4-7) Stop: 07/29/18 10:01 Last Admin: 07/28/18 06:22 Dose: 2 tab Quetiapine Fumarate (Seroquel) 100 mg PO [facility] Last Admin: 07/27/18 21:43 Dose: 100 mg Senna/Docusate Sodium (Senokot S 50 Mg-8.6 Mg) 2 tab PO [facility] Last Admin: 07/27/18 21:43 Dose: 2 tab Sertraline HCl (Zoloft) 100 mg PO BID [facility] Last Admin: 07/28/18 09:08 Dose: 100 mg - Labs Labs: 07/27/18 06:45 07/27/18 06:45 PT 10.6 Seconds (9.8-13.1) 07/24/18 16:37 INR 0.9 07/24/18 16:37 APTT 42.8 Seconds (25.6-37.1) H 07/25/18 05:55 - Constitutional Appears: Well, Non-toxic, No Acute Distress - Head Exam Head Exam: ATRAUMATIC, NORMOCEPHALIC - Eye Exam Eye Exam: EOMI - ENT Exam ENT Exam: Mucous Membranes Moist - Respiratory Exam Respiratory Exam: NORMAL BREATHING PATTERN - Cardiovascular Exam Cardiovascular Exam: REGULAR RHYTHM - GI/Abdominal Exam GI & Abdominal Exam: Soft. absent: Guarding, Tenderness - Extremities Exam Extremities Exam: Full ROM (right arm full ROM) Additional comments: right elbow with stitches in place, defect closed, minimal erythema surrounding closure site, no discharge, no fluctuance no purulent discharge - Neurological Exam Neurological Exam: Alert, Awake, Oriented x3. absent: Motor Sensory Deficit - Psychiatric Exam Psychiatric exam: Normal Affect, Normal Mood - Skin Skin Exam: Dry, Erythema (minimal at closure site of right elbow), Intact, Warm Assessment and Plan - Assessment and Plan (Free Text) Assessment: 63 yr old male with right elbow wound, s/p closure Plan: - upon evaluation wound had already been closed - minimal surrounding erythema, no signs of infection - xeroform gauze dressing placed over area - no further intervention needed at this time, please reconsult GUCCI Vasquez, PGY 1
[2018-07-28] MEDS: Docusate-Senna 50 mg-8.6 mg Tab PO SCH (21:11)
--- NOTE | 2018-07-28 22:48 | PN ---
DATE: 07/28/2018 SUBJECTIVE: The patient is seen today, 07/28/2018. He is not in any cardiopulmonary distress. Tolerating antibiotics well. PHYSICAL EXAMINATION: VITAL SIGNS: Blood pressure 109/69, temperature 97.7, respiratory rate 20, and pulse 86. HEENT: Pupils equal, reactive to light. Normal-appearing mucosa of the conjunctivae, oropharynx and nasal membrane mucosa. Positive seborrheic dermatitis. NECK: Supple. No JVD. No carotid bruit. No lymph node. No thyromegaly. CHEST AND LUNGS: Bilateral symmetrical expansion. Good air exchange. No rales. No rhonchi. CARDIOVASCULAR SYSTEM: PMI not localized. S1, S2. No additional sounds. ABDOMEN: Normoactive bowel sounds. No tenderness. EXTREMITIES: No cyanosis, no clubbing, no edema. Right upper extremity is in a splint. LIDAR SCIENTIST: Alert, awake, oriented x2 and no neurological deficit could be appreciated. ASSESSMENT: 1. Infected wound of the right elbow likely osteomyelitis. 2. History of intravenous drug abuse. 3. Seborrheic dermatitis. PLAN: We will order hydrocortisone cream, continue to the face area. Continue current antibiotics as per ID and follow orthopedic recommendations. Harini Flynn MD
[2018-07-29] MEDS: Oxycodone/Acetaminophen 5/325 mg Tab PO PRN (04:59)
[2018-07-29] MEDS: oxyCODONE 20 mg ER Tab (oxyCONTIN) PO SCH ×2 (09:22→21:23)
--- NOTE | 2018-07-29 10:45 | CP.PCM.PN ---
Subjective - Date & Time of Evaluation Date of Evaluation: 07/29/18 Time of Evaluation: 10:43 - Subjective Subjective: Patient states pain in elbow is getting better. No new complaints. Objective - Vital Signs/Intake and Output Vital Signs (last 24 hours): Temp Pulse Resp BP Pulse Ox 97.1 F L 76 20 116/61 96 07/29/18 08:31 07/29/18 08:31 07/29/18 08:31 07/29/18 08:31 07/29/18 08:31 - Medications Medications: Current Medications Acetaminophen (Tylenol 325mg Tab) 650 mg PO Q4 PRN PRN Reason: Fever 101 degrees fahrenheit Diphenhydramine HCl (Benadryl) 25 mg PO Q6 PRN PRN Reason: Itching / Pruritus Last Admin: 07/24/18 22:58 Dose: 25 mg Gabapentin (Neurontin) 300 mg PO TID [facility] Last Admin: 07/29/18 09:16 Dose: 300 mg Heparin Sodium (Porcine) (Heparin) 5,000 units SC Q12 [facility]; Protocol Last Admin: 07/29/18 09:16 Dose: 5,000 units Hydrocortisone (Hydrocortisone 2.5%) 1 applic TOP BID [facility] Last Admin: 07/29/18 09:16 Dose: 1 applic Hydrogen Peroxide (Hydrogen Peroxide 3%) 237 ml TP DAILY [facility] Last Admin: 07/28/18 09:22 Dose: Not Given Hydromorphone HCl (Dilaudid) 2 mg IVP Q4 PRN PRN Reason: Pain, severe (8-10) Last Admin: 07/27/18 19:23 Dose: 2 mg Lactated Ringer's (Lactated Ringer's) 1,000 mls @ 100 mls/hr IV .Q10H [facility] Last Admin: 07/28/18 23:00 Dose: Not Given Daptomycin 320 mg/ Sodium (Chloride) 100 mls @ 100 mls/hr IV Q24H [facility]; Protocol Stop: 08/01/18 17:16 Last Admin: 07/28/18 16:15 Dose: 100 mls/hr Ondansetron HCl (Zofran Inj) 4 mg IVP Q4 PRN PRN Reason: Nausea/Vomiting Oxycodone HCl (Oxycontin Extended Release Tab) 20 mg PO Q12 [facility] Last Admin: 04/12/19 09:22 Dose: 20 mg Quetiapine Fumarate (Seroquel) 100 mg PO HS [facility] Last Admin: 07/28/18 21:01 Dose: 100 mg Senna/Docusate Sodium (Senokot S 50 Mg-8.6 Mg) 2 tab PO HS [facility] Last Admin: 07/28/18 21:11 Dose: Not Given Sertraline HCl (Zoloft) 100 mg PO BID [facility] Last Admin: 07/29/18 09:17 Dose: 100 mg - Labs Labs: 07/27/18 06:45 07/27/18 06:45 PT 10.6 Seconds (9.8-13.1) 07/24/18 16:37 INR 0.9 07/24/18 16:37 APTT 42.8 Seconds (25.6-37.1) H 07/25/18 05:55 - Extremities Exam Additional comments: Right elbow: scant sang drainage. Noted erythema around incision. Minimal pain with elbow limited ROM. +ROM fingers/wrist flex/ext, sensation intact rad/ulnar/med nerve. +radial pulse Assessment and Plan (1) Open wound of right elbow Assessment & Plan: POD#3 s/p I&D, wound closure right elbow +MRSA cont abx per ID dressing change prn d/w Dr. Waddell, agrees with above Status: Acute
--- NOTE | 2018-07-29 14:33 | CP.PCM.PN ---
Subjective - Date & Time of Evaluation Date of Evaluation: 07/29/18 Time of Evaluation: 14:30 - Subjective Subjective: Patient was transitioned from IV Dilaudid to PO Dilaudid today. The combination of Oxycontin and Dilaudid is helping with his pain moderately. He denies recent substance abuse or narcotic use, but his opioid requirement has been unusually high. Objective - Vital Signs/Intake and Output Vital Signs (last 24 hours): Temp Pulse Resp BP Pulse Ox 97.1 F L 76 20 116/61 96 07/29/18 08:31 07/29/18 08:31 07/29/18 08:31 07/29/18 08:31 07/29/18 08:31 - Medications Medications: Current Medications Acetaminophen (Tylenol 325mg Tab) 650 mg PO Q4 PRN PRN Reason: Fever 101 degrees fahrenheit Diphenhydramine HCl (Benadryl) 25 mg PO Q6 PRN PRN Reason: Itching / Pruritus Last Admin: 07/24/18 22:58 Dose: 25 mg Gabapentin (Neurontin) 300 mg PO TID [facility] Last Admin: 07/29/18 13:13 Dose: 300 mg Heparin Sodium (Porcine) (Heparin) 5,000 units SC Q12 [facility]; Protocol Last Admin: 07/29/18 09:16 Dose: 5,000 units Hydrocortisone (Hydrocortisone 2.5%) 1 applic TOP BID [facility] Last Admin: 07/29/18 09:16 Dose: 1 applic Hydrogen Peroxide (Hydrogen Peroxide 3%) 237 ml TP DAILY [facility] Last Admin: 07/28/18 09:22 Dose: Not Given Hydromorphone HCl (Dilaudid) 4 mg PO Q4 PRN PRN Reason: Pain, severe (8-10) Last Admin: 07/29/18 13:13 Dose: 4 mg Lactated Ringer's (Lactated Ringer's) 1,000 mls @ 100 mls/hr IV .Q10H [facility] Last Admin: 07/28/18 23:00 Dose: Not Given Daptomycin 320 mg/ Sodium (Chloride) 100 mls @ 100 mls/hr IV Q24H [facility]; Protocol Stop: 08/01/18 17:16 Last Admin: 07/28/18 16:15 Dose: 100 mls/hr Ondansetron HCl (Zofran Inj) 4 mg IVP Q4 PRN PRN Reason: Nausea/Vomiting Oxycodone HCl (Oxycontin Extended Release Tab) 20 mg PO Q12 [facility] Last Admin: 07/29/18 09:22 Dose: 20 mg Quetiapine Fumarate (Seroquel) 100 mg PO HS [facility] Last Admin: 07/28/18 21:01 Dose: 100 mg Senna/Docusate Sodium (Senokot S 50 Mg-8.6 Mg) 2 tab PO [facility] Last Admin: 07/28/18 21:11 Dose: Not Given Sertraline HCl (Zoloft) 100 mg PO BID [facility] Last Admin: 07/29/18 09:17 Dose: 100 mg - Labs Labs: 07/27/18 06:45 07/27/18 06:45 PT 10.6 Seconds (9.8-13.1) 07/24/18 16:37 INR 0.9 07/24/18 16:37 APTT 42.8 Seconds (25.6-37.1) H 07/25/18 05:55 - Extremities Exam Additional comments: Dressing intact in right elbow. Assessment and Plan (1) Cellulitis of right elbow Assessment & Plan: 63 yo man s/p right elbow debridement. Elevated opioid requirement likely from hx of substance abuse. - continue Oxycontin and Dilaudid PO only - patient can be discharged on Percocet for home Status: Acute
[2018-07-29] MEDS: Benzocaine/Menthol (Cepacol) Lozenge PO PRN ×2 (16:09→22:50)
[2018-07-29] MEDS: Hydrogen Peroxide 3% Soln (480ml) TP SCH (16:10)
--- NOTE | 2018-07-29 20:46 | PN ---
DATE: 07/29/2018 DAILY PROGRESS NOTE SUBJECTIVE: The patient is seen today, 07/29/2018. He is not in any cardiopulmonary distress. The patient's face is much improved after applying the hydrocortisone cream. PHYSICAL EXAMINATION: VITAL SIGNS: Blood pressure is 116/61, temperature 97.1, respiratory rate 20, and pulse 76. HEENT: Pupils are equal and reactive to light. Normal-appearing mucosa of the conjunctivae, oropharynx, and nasal membrane mucosa. NECK: Supple. No JVD. No carotid bruit. No lymph node. No thyromegaly. CHEST AND LUNGS: Bilateral symmetrical expansion. Good air exchange. No rales. No rhonchi. CARDIOVASCULAR SYSTEM: PMI not localized. S1 and S2. No additional sounds. ABDOMEN: Normoactive bowel sounds. No tenderness. No organomegaly. No masses. EXTREMITIES: No cyanosis. No clubbing. No edema. CENTRAL NERVOUS SYSTEM: Alert, awake, oriented x2. No neurological deficit could be appreciated. ASSESSMENT: Infected wound of the right elbow, status post debridement. Pathology report showed fragments of the bone and cartilage. No acute osteomyelitis seen. Debrided tissue fragments and fibroadipose tissue shows chronic active inflammation with granulation tissue formation, fibrinopurulent exudate and necrosis. ASSESSMENT: 1. Infected wound of the right elbow, status post debridement. 2. History of depression. 3. History of intravenous drug abuse. PLAN: Continue current IV antibiotics and continue the followup with ID and Orthopedics. Harini Flynn MD
[2018-07-29] MEDS: Docusate-Senna 50 mg-8.6 mg Tab PO SCH (22:47)
[2018-07-30] MEDS: Lactated Ringer's 1,000 ML IV SCH (04:14)
[2018-07-30] MEDS: oxyCODONE 20 mg ER Tab (oxyCONTIN) PO SCH ×2 (09:13→20:50)
[2018-07-30] MEDS: Hydrogen Peroxide 3% Soln (480ml) TP SCH (09:17)
[2018-07-30] MEDS: Benzocaine/Menthol (Cepacol) Lozenge PO PRN ×2 (09:18→14:00)
[2018-07-30] MEDS: Docusate-Senna 50 mg-8.6 mg Tab PO SCH (22:22)
[2018-07-31] MEDS: Lactated Ringer's 1,000 ML IV SCH (00:35)
[2018-07-31] MEDS: oxyCODONE 20 mg ER Tab (oxyCONTIN) PO SCH ×2 (09:19→20:59)
[2018-07-31] MEDS: Hydrogen Peroxide 3% Soln (480ml) TP SCH (12:51)
[2018-07-31] MEDS: Docusate-Senna 50 mg-8.6 mg Tab PO SCH (21:03)
--- NOTE | 2018-07-31 21:26 | PN ---
DATE: 07/30/2018 LATE ENTRY DAILY PROGRESS NOTE SUBJECTIVE: The patient was seen on 07/30/2018. He is still having pain on the right elbow region, and he is on IV antibiotics. PHYSICAL EXAMINATION: VITAL SIGNS: Blood pressure 130/70, temperature 98.3, respiratory rate 20, and pulse 82. HEENT: Pupils are equal and reactive to light. Normal-appearing mucosa of the conjunctivae, oropharynx, and nasal membrane mucosa. NECK: Supple. No JVD. No carotid bruit. No lymph node. No thyromegaly. CHEST AND LUNGS: Bilateral symmetrical expansion. Good air exchange. No rales. No rhonchi. CARDIOVASCULAR SYSTEM: PMI not localized. S1 and S2. No additional sounds. ABDOMEN: Normoactive bowel sounds. No tenderness. No organomegaly. No masses. EXTREMITIES: No cyanosis. No clubbing. No edema. Right elbow is surgically dressed. CENTRAL NERVOUS SYSTEM: Alert, awake, oriented x2. No neurological deficit could be appreciated. ASSESSMENT: 1. Infected right elbow wound, status post debridement. 2. History of intravenous drug abuse. 3. Depression. PLAN: Continue current IV antibiotics and follow recommendations of Orthopedics and Infectious Disease. Harini Flynn MD
--- NOTE | 2018-07-31 21:43 | PN ---
DATE: 07/31/2018 DAILY PROGRESS NOTE SUBJECTIVE: The patient is seen today, 07/31/2018. He is not in any cardiopulmonary distress. The patient is still on IV antibiotics. Treating right elbow infected wound. PHYSICAL EXAMINATION: VITAL SIGNS: Blood pressure 130/70, temperature 97.6, respiratory rate 18, and pulse 76. HEENT: Pupils are equal and reactive to light. Normal-appearing mucosa of the conjunctivae, oropharynx, and nasal membrane mucosa. NECK: Supple. No JVD. No carotid bruit. No lymph node. No thyromegaly. CHEST AND LUNGS: Bilateral symmetrical expansion. Good air exchange. No rales. No rhonchi. CARDIOVASCULAR SYSTEM: PMI not localized. S1 and S2. No additional sounds. ABDOMEN: Normoactive bowel sounds. No tenderness. No organomegaly. No masses. EXTREMITIES: No cyanosis. No clubbing. No edema. Right elbow is surgically dressed. CENTRAL NERVOUS SYSTEM: Alert, awake, oriented x2. No neurological deficit could be appreciated. ASSESSMENT: 1. Infected wound of the right elbow, not responsive to outpatient treatment. 2. History of depression. 3. Intravenous drug abuse. PLAN: Continue current IV antibiotics. Follow ID and Orthopedic recommendations. Harini Flynn MD
[2018-08-01 08:31] VITALS: RESP 20
[2018-08-01] MEDS: Lactated Ringer's 1,000 ML IV SCH ×2 (09:03→16:47)
[2018-08-01] MEDS: oxyCODONE 20 mg ER Tab (oxyCONTIN) PO SCH ×2 (09:09→21:19)
--- NOTE | 2018-08-01 09:16 | CP.PCM.DIS ---
Provider - Provider Date of Admission: 07/21/18 21:26 Attending physician: Harini Flynn MD Consults: 07/21/18 23:15 Infectious Disease Consult Routine Comment: Consulting Provider: Raymond Cassidy Consulting Physician: Raymond Cassidy Reason for Consult: MDR MRSA elbow 07/22/18 01:26 Social Work Referral Routine Comment: hx:substance abuse Physician Instructions: Reason For Exam: discharge planning 07/22/18 02:03 Nursing Referral for Wound Care Routine Comment: Physician Instructions: Reason For Exam: right elbow open wound 07/22/18 14:45 Orthopedic Consult Routine Comment: Consulting Provider: Jose Waddell III Consulting Physician: Jose Waddell III Reason for Consult: OM of R elbow, for possible debridement 07/23/18 12:21 Plastic Surgery Consult Routine Comment: Consulting Provider: Ayaan Raymundo Consulting Physician: Ayaan Raymundo Reason for Consult: wound closure 07/25/18 14:28 Case Management Referral Routine Comment: Physician Instructions: Reason For Exam: Reason for Referral: Discharge Planning 07/27/18 12:02 Anesthesiology Consult Routine Comment: Consulting Provider: Ramon An Consulting Physician: Ramon An Reason for Consult: Transition from IV to oral pain meds Hospital Course - Lab Results Lab Results: Micro Results 07/25/18 12:41 Other: Please Indicate Gram Stain - Final 07/25/18 12:41 Other: Please Indicate Body Fluid Culture - Final NO GROWTH AFTER 4 DAYS 07/25/18 12:41 Other: Please Indicate Mycobacterial Culture - Preliminary 07/25/18 12:41 Body Fluid - Elbow-Right Gram Stain - Final 07/25/18 12:41 Body Fluid - Elbow-Right Anaerobic Culture - Final NO ANAEROBES ISOLATED. 07/25/18 12:41 Body Fluid - Elbow-Right Body Fluid Culture - Final No growth. 07/25/18 13:48 Elbow - Right Gram Stain - Final 07/25/18 13:48 Elbow - Right Wound Culture - Final No growth. 07/25/18 13:48 Elbow - Right Gram Stain - Final 07/25/18 13:48 Elbow - Right Wound Culture - Final No growth. 07/25/18 13:48 Elbow - Right Gram Stain - Final 07/25/18 13:48 Elbow - Right Wound Culture - Final No growth. 07/25/18 13:48 Elbow - Right Gram Stain - Final 07/25/18 13:48 Elbow - Right Wound Culture - Final No growth. 07/25/18 13:48 Elbow - Right Gram Stain - Final 07/25/18 13:48 Elbow - Right Wound Culture - Final No growth. 07/25/18 13:48 Elbow - Right Gram Stain - Final 07/25/18 13:48 Elbow - Right Wound Culture - Final No growth. 07/25/18 13:48 Elbow - Right Gram Stain - Final 07/25/18 13:48 Elbow - Right Wound Culture - Final No growth. 07/22/18 15:55 Blood-Venous Blood Culture - Final NO GROWTH AFTER 5 DAYS 07/22/18 15:55 Blood-Venous Gram Stain - Final TEST NOT PERFORMED 07/22/18 15:45 Blood-Venous Blood Culture - Final NO GROWTH AFTER 5 DAYS 07/22/18 15:45 Blood-Venous Gram Stain - Final TEST NOT PERFORMED 07/25/18 12:41 Elbow - Right Anaerobic Culture - Final NO ANAEROBES ISOLATED. 07/21/18 19:07 Blood Blood Culture - Final NO GROWTH AFTER 5 DAYS 07/21/18 19:07 Blood Gram Stain - Final TEST NOT PERFORMED 07/21/18 19:07 Blood Blood Culture - Final NO GROWTH AFTER 5 DAYS 07/21/18 19:07 Blood Gram Stain - Final TEST NOT PERFORMED 07/22/18 14:00 Elbow - Right Gram Stain - Final 07/22/18 14:00 Elbow - Right Wound Culture - Final Methicillin Resistant S Aureus Most Recent Lab Values WBC 4.5 K/uL (4.8-10.8) L 07/27/18 06:45 RBC 4.45 Mil/uL (4.40-5.90) 07/27/18 06:45 Hgb 12.5 g/dL (12.0-18.0) 07/27/18 06:45 Hct 38.5 % (35.0-51.0) 07/27/18 06:45 MCV 86.6 fl (80.0-94.0) 07/27/18 06:45 MCH 28.2 pg (27.0-31.0) 07/27/18 06:45 MCHC 32.6 g/dL (33.0-37.0) L 07/27/18 06:45 RDW 15.9 % (11.5-14.5) H 07/27/18 06:45 Plt Count 130 K/uL (130-400) 07/27/18 06:45 MPV 7.6 fl (7.2-11.7) 07/24/18 16:37 Neut % (Auto) 66.5 % (50.0-75.0) 07/24/18 16:37 Lymph % (Auto) 23.1 % (20.0-40.0) 07/24/18 16:37 [place] % (Auto) 7.0 % (0.0-10.0) 07/24/18 16:37 Eos % (Auto) 2.6 % (0.0-4.0) 07/24/18 16:37 Baso % (Auto) 0.8 % (0.0-2.0) 07/24/18 16:37 Neut # (Auto) 2.9 K/uL (1.8-7.0) 07/24/18 16:37 Lymph # (Auto) 1.0 K/uL (1.0-4.3) 07/24/18 16:37 [place] # (Auto) 0.3 K/uL (0.0-0.8) 07/24/18 16:37 Eos # (Auto) 0.1 K/uL (0.0-0.7) 07/24/18 16:37 Baso # (Auto) 0.0 K/uL (0.0-0.2) 07/24/18 16:37 ESR 39 mm/hr (0-20) H 07/21/18 22:07 PT 10.6 Seconds (9.8-13.1) 07/24/18 16:37 INR 0.9 07/24/18 16:37 APTT 42.8 Seconds (25.6-37.1) H 07/25/18 05:55 Sodium 136 mmol/l (132-148) 07/27/18 06:45 Potassium 4.1 MMOL/L (3.6-5.0) 07/27/18 06:45 Chloride 104 mmol/L (98-107) 07/27/18 06:45 Carbon Dioxide 23 mmol/L (22-30) 07/27/18 06:45 Anion Gap 13 (10-20) 07/27/18 06:45 BUN 10 mg/dl (9-20) 07/27/18 06:45 Creatinine 0.9 mg/dl (0.8-1.5) 07/27/18 06:45 Est GFR ( Amer) > 60 07/27/18 06:45 Est GFR (Non-Af Amer) > 60 07/27/18 06:45 POC Glucose (mg/dL) 103 mg/dL (65-110) 07/22/18 05:05 Random Glucose 124 mg/dL (75-110) H 07/27/18 06:45 Lactic Acid 1.3 mmol/L (0.7-2.1) 07/21/18 19:07 Calcium 8.9 mg/dL (8.4-10.2) 07/27/18 06:45 Total Bilirubin 0.3 mg/dl (0.2-1.3) 07/24/18 16:37 AST 32 U/L (17-59) 07/24/18 16:37 ALT 32 U/L (21-72) 07/24/18 16:37 Alkaline Phosphatase 82 U/L (38-126) 07/24/18 16:37 Total Creatine Kinase < 20 U/L (55-170) L 07/31/18 06:52 C-Reactive Protein 7.90 mg/L (0.0-9.9) 07/21/18 19:07 Total Protein 6.9 G/DL (6.3-8.2) 07/24/18 16:37 Albumin 3.7 g/dL (3.5-5.0) 07/24/18 16:37 Globulin 3.2 gm/dL (2.2-3.9) 07/24/18 16:37 Albumin/Globulin Ratio 1.2 (1.0-2.1) 07/24/18 16:37 Urine Color Yellow (YELLOW) 07/24/18 17:31 Urine Clarity Clear (Clear) 07/24/18 17:31 Urine pH 6.0 (5.0-8.0) 07/24/18 17:31 Ur Specific Oscar 1.017 (1.003-1.030) 07/24/18 17:31 Urine Protein Negative mg/dL (NEGATIVE) 07/24/18 17:31 Urine Glucose (UA) Neg mg/dL (NEGATIVE) 07/24/18 17:31 Urine Ketones Negative mg/dL (NEGATIVE) 07/24/18 17:31 Urine Blood Negative (NEGATIVE) 07/24/18 17:31 Urine Nitrate Negative (NEGATIVE) 07/24/18 17:31 Urine Bilirubin Negative (NEGATIVE) 07/24/18 17:31 Urine Urobilinogen 0.2-1.0 mg/dL (0.2-1.0) 07/24/18 17:31 Ur Leukocyte Esterase Neg Slick/uL (Negative) 07/24/18 17:31 Urine RBC (Auto) 3 /hpf (0-3) 07/24/18 17:31 Urine Microscopic WBC 1 /hpf (0-5) 07/24/18 17:31 Fluid Type Synovial fluid 07/25/18 12:38 Synovial WBC 3.0 /mm3 (0.0-150.0) 07/25/18 12:38 Synovial RBC 87.0 /mm3 (0.0-0.0) H 07/25/18 12:38 Synovial Neutrophils 0.0 % (0-0) 07/25/18 12:38 Synovial Lymphocytes 0.0 % (0-0) 07/25/18 12:38 Synov Monos/Macrophage 0 % (0-0) 07/25/18 12:38 Synovial Fluid Comment Colorless 07/25/18 12:38 Urine Opiates Screen Negative (NEGATIVE) 07/22/18 06:49 Urine Methadone Screen Negative (NEGATIVE) 07/22/18 06:49 Ur Barbiturates Screen Negative (NEGATIVE) 07/22/18 06:49 Ur Phencyclidine Scrn Negative (NEGATIVE) 07/22/18 06:49 Ur Amphetamines Screen Negative (NEGATIVE) 07/22/18 06:49 U Benzodiazepines Scrn Negative (NEGATIVE) 07/22/18 06:49 U Oth Cocaine Metabols Negative (NEGATIVE) 07/22/18 06:49 U Cannabinoids Screen Negative (NEGATIVE) 07/22/18 06:49 Blood Type O NEGATIVE 07/21/18 19:20 Blood Type Confirm O NEGATIVE 07/21/18 19:07 Antibody Screen Negative 07/21/18 19:20 BBK History Checked No verified bt 07/21/18 19:20 Discharge Exam - Head Exam Head Exam: ATRAUMATIC, NORMOCEPHALIC Discharge Plan - Follow Up Plan Condition: FAIR Disposition: HOME/ ROUTINE
[2018-08-01] MEDS: Hydrogen Peroxide 3% Soln (480ml) TP SCH (11:25)
--- NOTE | 2018-08-01 12:56 | CP.PCM.PN ---
<Sabrina Quezada - Last Filed: 08/01/18 21:38> Subjective - Date & Time of Evaluation Date of Evaluation: 08/01/18 Time of Evaluation: 08:55 - Subjective Subjective: Patient was seen and examined at bedside this morning. Patient seen alert, awake, and oriented x 3. Patient denies any pain at this eval. Denies Cp, SOB, N/V, urinary symptoms. Objective - Vital Signs/Intake and Output Vital Signs (last 24 hours): Temp Pulse Resp BP Pulse Ox 97.4 F L 67 20 155/74 H 100 08/01/18 08:30 08/01/18 08:30 08/01/18 08:30 08/01/18 08:30 08/01/18 08:30 - Medications Medications: Current Medications Acetaminophen (Tylenol 325mg Tab) 650 mg PO Q4 PRN PRN Reason: Fever 101 degrees fahrenheit Benzocaine/Menthol (Cepacol Sore Throat) 1 lili PO Q3 PRN PRN Reason: Sore Throat Last Admin: 07/30/18 14:00 Dose: 1 lili Diphenhydramine HCl (Benadryl) 25 mg PO Q6 PRN PRN Reason: Itching / Pruritus Last Admin: 07/31/18 21:00 Dose: 25 mg Gabapentin (Neurontin) 300 mg PO TID [facility] Last Admin: 08/01/18 09:05 Dose: 300 mg Heparin Sodium (Porcine) (Heparin) 5,000 units SC Q12 [facility]; Protocol Last Admin: 08/01/18 09:04 Dose: 5,000 units Hydrocortisone (Hydrocortisone 2.5%) 1 applic TOP BID [facility] Last Admin: 08/01/18 09:05 Dose: 1 applic Hydrogen Peroxide (Hydrogen Peroxide 3%) 237 ml TP DAILY [facility] Last Admin: 08/01/18 11:25 Dose: 237 ml Hydromorphone HCl (Dilaudid) 4 mg PO Q4 PRN PRN Reason: Pain, severe (8-10) Last Admin: 07/31/18 14:03 Dose: 4 mg Lactated Ringer's (Lactated Ringer's) 1,000 mls @ 100 mls/hr IV .Q10H [facility] Last Admin: 08/01/18 09:03 Dose: Not Given Daptomycin 320 mg/ Sodium (Chloride) 100 mls @ 100 mls/hr IV Q24H [facility]; Protocol Stop: 08/01/18 17:16 Last Admin: 07/31/18 17:15 Dose: 100 mls/hr Ondansetron HCl (Zofran Inj) 4 mg IVP Q4 PRN PRN Reason: Nausea/Vomiting Oxycodone HCl (Oxycontin Extended Release Tab) 20 mg PO Q12 [facility] Last Admin: 08/01/18 09:09 Dose: 20 mg Quetiapine Fumarate (Seroquel) 100 mg PO [facility] Last Admin: 07/31/18 21:00 Dose: 100 mg Senna/Docusate Sodium (Senokot S 50 Mg-8.6 Mg) 2 tab PO [facility] Last Admin: 07/31/18 21:03 Dose: Not Given Sertraline HCl (Zoloft) 100 mg PO BID [facility] Last Admin: 08/01/18 09:04 Dose: 100 mg - Labs Labs: 07/27/18 06:45 07/27/18 06:45 PT 10.6 Seconds (9.8-13.1) 07/24/18 16:37 INR 0.9 07/24/18 16:37 APTT 42.8 Seconds (25.6-37.1) H 07/25/18 05:55 - Constitutional Appears: Non-toxic, No Acute Distress - ENT Exam ENT Exam: Mucous Membranes Moist - Respiratory Exam Respiratory Exam: Clear to Ausculation Bilateral, NORMAL BREATHING PATTERN. absent: Rales, Rhonchi, Wheezes, Respiratory Distress, Stridor - Cardiovascular Exam Cardiovascular Exam: REGULAR RHYTHM, +S1, +S2 - GI/Abdominal Exam GI & Abdominal Exam: Soft, Normal Bowel Sounds. absent: Distended, Firm, Guarding, Rigid, Tenderness - Extremities Exam Extremities Exam: Normal Inspection. absent: Calf Tenderness, Pedal Edema - Back Exam Back Exam: NORMAL INSPECTION. absent: CVA tenderness (L), CVA tenderness (R) - Neurological Exam Neurological Exam: Alert, Awake, Oriented x3 Assessment and Plan - Assessment and Plan (Free Text) Assessment: Infected Wound of the right elbow h/o Depression IV drug abuse Plan: c/w current IV antibiotics F/U ID recommendations. Since bone biopsy was negative for OM and OR wound cx are negative advise total of 2 weeks of IV antibiotics (daptomycin). F/U Orthopedic recommendations <Montserrat Munoz - Last Filed: 08/02/18 07:23> Objective - Vital Signs/Intake and Output Vital Signs (last 24 hours): Temp Pulse Resp BP Pulse Ox 97.4 F L 81 20 121/76 95 08/01/18 23:56 08/01/18 23:56 08/01/18 23:56 08/01/18 23:56 08/01/18 23:56 - Medications Medications: Current Medications Acetaminophen (Tylenol 325mg Tab) 650 mg PO Q4 PRN PRN Reason: Fever 101 degrees fahrenheit Benzocaine/Menthol (Cepacol Sore Throat) 1 lili PO Q3 PRN PRN Reason: Sore Throat Last Admin: 07/30/18 14:00 Dose: 1 lili Diphenhydramine HCl (Benadryl) 25 mg PO Q6 PRN PRN Reason: Itching / Pruritus Last Admin: 07/31/18 21:00 Dose: 25 mg Gabapentin (Neurontin) 300 mg PO TID [facility] Last Admin: 08/01/18 16:47 Dose: 300 mg Heparin Sodium (Porcine) (Heparin) 5,000 units SC Q12 [facility]; Protocol Last Admin: 08/01/18 21:22 Dose: 5,000 units Hydrocortisone (Hydrocortisone 2.5%) 1 applic TOP BID [facility] Last Admin: 08/01/18 16:48 Dose: 1 applic Hydrogen Peroxide (Hydrogen Peroxide 3%) 237 ml TP DAILY [facility] Last Admin: 08/01/18 11:25 Dose: 237 ml Hydromorphone HCl (Dilaudid) 4 mg PO Q4 PRN PRN Reason: Pain, severe (8-10) Last Admin: 07/31/18 14:03 Dose: 4 mg Lactated Ringer's (Lactated Ringer's) 1,000 mls @ 100 mls/hr IV .Q10H [facility] Last Admin: 08/01/18 16:47 Dose: Not Given Ondansetron HCl (Zofran Inj) 4 mg IVP Q4 PRN PRN Reason: Nausea/Vomiting Oxycodone HCl (Oxycontin Extended Release Tab) 20 mg PO Q12 [facility] Last Admin: 08/01/18 21:19 Dose: 20 mg Quetiapine Fumarate (Seroquel) 100 mg PO HS [facility] Last Admin: 08/01/18 21:21 Dose: 100 mg Senna/Docusate Sodium (Senokot S 50 Mg-8.6 Mg) 2 tab PO HS [facility] Last Admin: 08/01/18 21:21 Dose: 2 tab Sertraline HCl (Zoloft) 100 mg PO BID [facility] Last Admin: 08/01/18 16:47 Dose: 100 mg - Labs Labs: 07/27/18 06:45 07/27/18 06:45 PT 10.6 Seconds (9.8-13.1) 07/24/18 16:37 INR 0.9 07/24/18 16:37 APTT 42.8 Seconds (25.6-37.1) H 07/25/18 05:55 Attending/Attestation - Attestation I have personally seen and examined this patient.: Yes I have fully participated in the care of the patient.: Yes I have reviewed all pertinent clinical information, including history, physical exam and plan: Yes Notes (Text): 08/02/18 07:23 3-year-old male patient of Dr. Flynn admitted for rib fractures. Awaiting placement to [facility]. Agree with findings and plan as above.
--- NOTE | 2018-08-01 14:09 | CP.PCM.PN ---
Subjective - Date & Time of Evaluation Date of Evaluation: 08/01/18 Time of Evaluation: 13:30 - Subjective Subjective: Patient states elbow pain is improving. Denies numbness/tingling. Able to move more Objective - Vital Signs/Intake and Output Vital Signs (last 24 hours): Temp Pulse Resp BP Pulse Ox 97.4 F L 67 20 155/74 H 100 08/01/18 08:30 08/01/18 08:30 08/01/18 08:30 08/01/18 08:30 08/01/18 08:30 - Medications Medications: Current Medications Acetaminophen (Tylenol 325mg Tab) 650 mg PO Q4 PRN PRN Reason: Fever 101 degrees fahrenheit Benzocaine/Menthol (Cepacol Sore Throat) 1 lili PO Q3 PRN PRN Reason: Sore Throat Last Admin: 07/30/18 14:00 Dose: 1 lili Diphenhydramine HCl (Benadryl) 25 mg PO Q6 PRN PRN Reason: Itching / Pruritus Last Admin: 07/31/18 21:00 Dose: 25 mg Gabapentin (Neurontin) 300 mg PO TID [facility] Last Admin: 08/01/18 13:21 Dose: 300 mg Heparin Sodium (Porcine) (Heparin) 5,000 units SC Q12 [facility]; Protocol Last Admin: 08/01/18 09:04 Dose: 5,000 units Hydrocortisone (Hydrocortisone 2.5%) 1 applic TOP BID [facility] Last Admin: 08/01/18 09:05 Dose: 1 applic Hydrogen Peroxide (Hydrogen Peroxide 3%) 237 ml TP DAILY [facility] Last Admin: 08/01/18 11:25 Dose: 237 ml Hydromorphone HCl (Dilaudid) 4 mg PO Q4 PRN PRN Reason: Pain, severe (8-10) Last Admin: 07/31/18 14:03 Dose: 4 mg Lactated Ringer's (Lactated Ringer's) 1,000 mls @ 100 mls/hr IV .Q10H [facility] Last Admin: 08/01/18 09:03 Dose: Not Given Daptomycin 320 mg/ Sodium (Chloride) 100 mls @ 100 mls/hr IV Q24H [facility]; Protocol Stop: 08/01/18 17:16 Last Admin: 07/31/18 17:15 Dose: 100 mls/hr Ondansetron HCl (Zofran Inj) 4 mg IVP Q4 PRN PRN Reason: Nausea/Vomiting Oxycodone HCl (Oxycontin Extended Release Tab) 20 mg PO Q12 [facility] Last Admin: 08/01/18 09:09 Dose: 20 mg Quetiapine Fumarate (Seroquel) 100 mg PO HS [facility] Last Admin: 07/31/18 21:00 Dose: 100 mg Senna/Docusate Sodium (Senokot S 50 Mg-8.6 Mg) 2 tab PO [facility] Last Admin: 07/31/18 21:03 Dose: Not Given Sertraline HCl (Zoloft) 100 mg PO BID [facility] Last Admin: 08/01/18 09:04 Dose: 100 mg - Labs Labs: 07/27/18 06:45 07/27/18 06:45 PT 10.6 Seconds (9.8-13.1) 07/24/18 16:37 INR 0.9 07/24/18 16:37 APTT 42.8 Seconds (25.6-37.1) H 07/25/18 05:55 - Extremities Exam Additional comments: Right elbow: incision intact, dry, improving swelling and erythema. Dressing applied, dry, telfa. ROM elbow improving, 0-100, supination mildly limited sensation intact +radial pulse +ROM fingers/wrist Assessment and Plan (1) Open wound of right elbow Assessment & Plan: s/p I&D wound closure ortho stable f/u in office in 7-10 days call for appt abx per ID d/w Dr. Waddell agrees with above Status: Acute
[2018-08-01] MEDS: Docusate-Senna 50 mg-8.6 mg Tab PO SCH (21:21)
--- NOTE | 2018-08-02 08:53 | CP.PCM.PN ---
<Ida Guillaume - Last Filed: 08/02/18 10:31> Subjective - Date & Time of Evaluation Date of Evaluation: 08/02/18 Time of Evaluation: 08:53 - Subjective Subjective: Seen and examined at bedside this morning. Reports good appetite and denies any pain today. No overnight events. Denies chest pain, SOB, N/V, urinary symptoms. Objective - Vital Signs/Intake and Output Vital Signs (last 24 hours): Temp Pulse Resp BP Pulse Ox 97.3 F L 77 20 138/83 99 08/02/18 08:20 08/02/18 08:20 08/02/18 08:20 08/02/18 08:20 08/02/18 08:20 - Medications Medications: Current Medications Acetaminophen (Tylenol 325mg Tab) 650 mg PO Q4 PRN PRN Reason: Fever 101 degrees fahrenheit Benzocaine/Menthol (Cepacol Sore Throat) 1 lili PO Q3 PRN PRN Reason: Sore Throat Last Admin: 07/30/18 14:00 Dose: 1 lili Diphenhydramine HCl (Benadryl) 25 mg PO Q6 PRN PRN Reason: Itching / Pruritus Last Admin: 07/31/18 21:00 Dose: 25 mg Gabapentin (Neurontin) 300 mg PO TID [facility] Last Admin: 08/01/18 16:47 Dose: 300 mg Heparin Sodium (Porcine) (Heparin) 5,000 units SC Q12 [facility]; Protocol Last Admin: 08/01/18 21:22 Dose: 5,000 units Hydrocortisone (Hydrocortisone 2.5%) 1 applic TOP BID [facility] Last Admin: 08/01/18 16:48 Dose: 1 applic Hydrogen Peroxide (Hydrogen Peroxide 3%) 237 ml TP DAILY [facility] Last Admin: 08/01/18 11:25 Dose: 237 ml Hydromorphone HCl (Dilaudid) 4 mg PO Q4 PRN PRN Reason: Pain, severe (8-10) Last Admin: 07/31/18 14:03 Dose: 4 mg Lactated Ringer's (Lactated Ringer's) 1,000 mls @ 100 mls/hr IV .Q10H [facility] Last Admin: 08/01/18 16:47 Dose: Not Given Ondansetron HCl (Zofran Inj) 4 mg IVP Q4 PRN PRN Reason: Nausea/Vomiting Oxycodone HCl (Oxycontin Extended Release Tab) 20 mg PO Q12 [facility] Last Admin: 08/01/18 21:19 Dose: 20 mg Quetiapine Fumarate (Seroquel) 100 mg PO HS [facility] Last Admin: 08/01/18 21:21 Dose: 100 mg Senna/Docusate Sodium (Senokot S 50 Mg-8.6 Mg) 2 tab PO HS [facility] Last Admin: 08/01/18 21:21 Dose: 2 tab Sertraline HCl (Zoloft) 100 mg PO BID [facility] Last Admin: 08/01/18 16:47 Dose: 100 mg - Labs Labs: 07/27/18 06:45 07/27/18 06:45 PT 10.6 Seconds (9.8-13.1) 07/24/18 16:37 INR 0.9 07/24/18 16:37 APTT 42.8 Seconds (25.6-37.1) H 07/25/18 05:55 - Constitutional Appears: Well, Non-toxic, No Acute Distress - Head Exam Head Exam: NORMAL INSPECTION - Eye Exam Eye Exam: Normal appearance - ENT Exam ENT Exam: Mucous Membranes Moist - Respiratory Exam Respiratory Exam: Clear to Ausculation Bilateral, NORMAL BREATHING PATTERN. absent: Chest Wall Tenderness, Decreased Breath Sounds, Prolonged Expiratory Phase, Rhonchi, Wheezes, Respiratory Distress, Stridor - Cardiovascular Exam Cardiovascular Exam: REGULAR RHYTHM, RRR, +S1, +S2. absent: Clicks, Diastolic murmur, Gallop, Irregular Rhythm, JVD, Murmur - GI/Abdominal Exam GI & Abdominal Exam: Soft, Normal Bowel Sounds. absent: Distended, Firm, Guarding, Rigid, Tenderness, Rebound - Extremities Exam Extremities Exam: Normal Capillary Refill, Normal Inspection Additional comments: Right elbow with stitches in place. Sensation intact and radial pulses +2. Incision is clean, dry and no drainage noted. Mild Erythema surrounding incision. Non-tender to palpation. 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 Patient to complete Daptomycin 14 day course (Day 11 today). Plan: Infected Wound of the right elbow POD#8 s/p elbow wound I and D and arthroscopic washout Continue IV Daptomycin (Day 11 of 14) until completion of 14 days (completion will be on 08/04/18). Orthopedic surgery consult appreciated: pt cleared to be discharged 08/04/18 after Daptomycin dose. Follow up in 7-10 days. <Liliana Garza - Last Filed: 08/02/18 17:47> Objective - Vital Signs/Intake and Output Vital Signs (last 24 hours): Temp Pulse Resp BP Pulse Ox 97.3 F L 83 20 120/80 98 08/02/18 16:03 08/02/18 16:03 08/02/18 16:03 08/02/18 16:03 08/02/18 16:03 - Medications Medications: Current Medications Acetaminophen (Tylenol 325mg Tab) 650 mg PO Q4 PRN PRN Reason: Fever 101 degrees fahrenheit Benzocaine/Menthol (Cepacol Sore Throat) 1 lili PO Q3 PRN PRN Reason: Sore Throat Last Admin: 07/30/18 14:00 Dose: 1 lili Diphenhydramine HCl (Benadryl) 25 mg PO Q6 PRN PRN Reason: Itching / Pruritus Last Admin: 07/31/18 21:00 Dose: 25 mg Gabapentin (Neurontin) 300 mg PO TID [facility] Last Admin: 08/02/18 16:27 Dose: 300 mg Heparin Sodium (Porcine) (Heparin) 5,000 units SC Q12 [facility]; Protocol Last Admin: 08/02/18 09:14 Dose: 5,000 units Hydrocortisone (Hydrocortisone 2.5%) 1 applic TOP BID [facility] Last Admin: 08/02/18 16:26 Dose: Not Given Hydromorphone HCl (Dilaudid) 4 mg PO Q4 PRN PRN Reason: Pain, severe (8-10) Last Admin: 07/31/18 14:03 Dose: 4 mg Lactated Ringer's (Lactated Ringer's) 1,000 mls @ 100 mls/hr IV .Q10H [facility] Last Admin: 08/01/18 16:47 Dose: Not Given Daptomycin 320 mg/ Sodium (Chloride) 100 mls @ 100 mls/hr IV 1700 [facility]; Protocol Stop: 08/07/18 17:01 Last Admin: 08/02/18 16:26 Dose: 100 mls/hr Mupirocin (Bactroban Ointment) 1 applic TOP BID [facility] Last Admin: 08/02/18 16:25 Dose: 1 applic Ondansetron HCl (Zofran Inj) 4 mg IVP Q4 PRN PRN Reason: Nausea/Vomiting Oxycodone HCl (Oxycontin Extended Release Tab) 20 mg PO Q12 [facility] Last Admin: 08/02/18 09:14 Dose: 20 mg Quetiapine Fumarate (Seroquel) 100 mg PO [facility] Last Admin: 08/01/18 21:21 Dose: 100 mg Senna/Docusate Sodium (Senokot S 50 Mg-8.6 Mg) 2 tab PO [facility] Last Admin: 08/01/18 21:21 Dose: 2 tab Sertraline HCl (Zoloft) 100 mg PO BID [facility] Last Admin: 08/02/18 09:14 Dose: 100 mg - Labs Labs: 07/27/18 06:45 07/27/18 06:45 PT 10.6 Seconds (9.8-13.1) 07/24/18 16:37 INR 0.9 07/24/18 16:37 APTT 42.8 Seconds (25.6-37.1) H 07/25/18 05:55 Attending/Attestation - Attestation I have personally seen and examined this patient.: Yes I have fully participated in the care of the patient.: Yes I have reviewed all pertinent clinical information, including history, physical exam and plan: Yes Notes (Text): Right Elbow Cellulitis s/p Incision and Drainage and Arthroscopic Washout ( MRSA Infection) History of IVDU Hepatitis C + Depression - cont IV Daptomycin until 08/04 then will need 1 more week of PO Doxycycline then IV completed -cont Psych meds - ff up with PMD for further eval and mgt of Hep C - Heparin for DVT proph
[2018-08-02] MEDS: oxyCODONE 20 mg ER Tab (oxyCONTIN) PO SCH ×2 (09:14→20:59)
--- NOTE | 2018-08-02 09:28 | CP.PCM.PN ---
Subjective - Date & Time of Evaluation Date of Evaluation: 08/02/18 Time of Evaluation: 07:30 - Subjective Subjective: Patient seen and examined at bedside. Pain well controlled. No new complaints. Scheduled for discharge on once converted to oral abx. Objective - Vital Signs/Intake and Output Vital Signs (last 24 hours): Temp Pulse Resp BP Pulse Ox 97.3 F L 77 20 138/83 99 08/02/18 08:20 08/02/18 08:20 08/02/18 08:20 08/02/18 08:20 08/02/18 08:20 - Medications Medications: Current Medications Acetaminophen (Tylenol 325mg Tab) 650 mg PO Q4 PRN PRN Reason: Fever 101 degrees fahrenheit Benzocaine/Menthol (Cepacol Sore Throat) 1 lili PO Q3 PRN PRN Reason: Sore Throat Last Admin: 07/30/18 14:00 Dose: 1 lili Diphenhydramine HCl (Benadryl) 25 mg PO Q6 PRN PRN Reason: Itching / Pruritus Last Admin: 07/31/18 21:00 Dose: 25 mg Gabapentin (Neurontin) 300 mg PO TID [facility] Last Admin: 08/02/18 09:14 Dose: 300 mg Heparin Sodium (Porcine) (Heparin) 5,000 units SC Q12 [facility]; Protocol Last Admin: 08/02/18 09:14 Dose: 5,000 units Hydrocortisone (Hydrocortisone 2.5%) 1 applic TOP BID [facility] Last Admin: 08/02/18 09:14 Dose: Not Given Hydrogen Peroxide (Hydrogen Peroxide 3%) 237 ml TP DAILY [facility] Last Admin: 08/01/18 11:25 Dose: 237 ml Hydromorphone HCl (Dilaudid) 4 mg PO Q4 PRN PRN Reason: Pain, severe (8-10) Last Admin: 07/31/18 14:03 Dose: 4 mg Lactated Ringer's (Lactated Ringer's) 1,000 mls @ 100 mls/hr IV .Q10H [facility] Last Admin: 08/01/18 16:47 Dose: Not Given Ondansetron HCl (Zofran Inj) 4 mg IVP Q4 PRN PRN Reason: Nausea/Vomiting Oxycodone HCl (Oxycontin Extended Release Tab) 20 mg PO Q12 [facility] Last Admin: 08/02/18 09:14 Dose: 20 mg Quetiapine Fumarate (Seroquel) 100 mg PO HS [facility] Last Admin: 08/01/18 21:21 Dose: 100 mg Senna/Docusate Sodium (Senokot S 50 Mg-8.6 Mg) 2 tab PO HS [facility] Last Admin: 08/01/18 21:21 Dose: 2 tab Sertraline HCl (Zoloft) 100 mg PO BID [facility] Last Admin: 08/02/18 09:14 Dose: 100 mg - Labs Labs: 07/27/18 06:45 07/27/18 06:45 PT 10.6 Seconds (9.8-13.1) 07/24/18 16:37 INR 0.9 07/24/18 16:37 APTT 42.8 Seconds (25.6-37.1) H 07/25/18 05:55 - Extremities Exam Additional comments: RUE: Dressings CDI Wound CDI with nylon sutures sensation and motor intact MN/UN/RN 2 sec cap refill all fingers Assessment and Plan (1) Open wound of right elbow Assessment & Plan: POD#8 s/p R elbow wound I&D and arthroscopic washout -abx as per ID -orthopedically stable for d/c to home -f/u in office in 7-10 days -d/w Dr. Waddell who agrees with above Status: Acute
[2018-08-02] MEDS: Docusate-Senna 50 mg-8.6 mg Tab PO SCH (21:01)
[2018-08-02] MEDS: Lactated Ringer's 1,000 ML IV SCH (22:30)
--- NOTE | 2018-08-03 08:22 | CP.PCM.PN ---
<Ida Guillaume - Last Filed: 08/03/18 11:21> Subjective - Date & Time of Evaluation Date of Evaluation: 08/03/18 Time of Evaluation: 08:50 - Subjective Subjective: Patient reports he has appetite and has been feeling well. No overnight events. Afebrile. Denies chest pain, shortness of breath, nausea, vomiting, abdominal pain or diarrhea. Objective - Vital Signs/Intake and Output Vital Signs (last 24 hours): Temp Pulse Resp BP Pulse Ox 97.8 F 85 20 109/66 98 08/02/18 23:57 08/02/18 23:57 08/02/18 23:57 08/02/18 23:57 08/02/18 23:57 - Medications Medications: Current Medications Acetaminophen (Tylenol 325mg Tab) 650 mg PO Q4 PRN PRN Reason: Fever 101 degrees fahrenheit Benzocaine/Menthol (Cepacol Sore Throat) 1 lili PO Q3 PRN PRN Reason: Sore Throat Last Admin: 07/30/18 14:00 Dose: 1 lili Diphenhydramine HCl (Benadryl) 25 mg PO Q6 PRN PRN Reason: Itching / Pruritus Last Admin: 07/31/18 21:00 Dose: 25 mg Gabapentin (Neurontin) 300 mg PO TID [facility] Last Admin: 08/02/18 16:27 Dose: 300 mg Heparin Sodium (Porcine) (Heparin) 5,000 units SC Q12 [facility]; Protocol Last Admin: 08/02/18 20:58 Dose: 5,000 units Hydrocortisone (Hydrocortisone 2.5%) 1 applic TOP BID [facility] Last Admin: 08/02/18 16:26 Dose: Not Given Hydromorphone HCl (Dilaudid) 4 mg PO Q4 PRN PRN Reason: Pain, severe (8-10) Last Admin: 07/31/18 14:03 Dose: 4 mg Lactated Ringer's (Lactated Ringer's) 1,000 mls @ 100 mls/hr IV .Q10H [facility] Last Admin: 08/02/18 22:30 Dose: Not Given Daptomycin 320 mg/ Sodium (Chloride) 100 mls @ 100 mls/hr IV 1700 [facility]; Protocol Stop: 08/07/18 17:01 Last Admin: 04/16/19 16:26 Dose: 100 mls/hr Mupirocin (Bactroban Ointment) 1 applic TOP BID [facility] Last Admin: 08/02/18 16:25 Dose: 1 applic Ondansetron HCl (Zofran Inj) 4 mg IVP Q4 PRN PRN Reason: Nausea/Vomiting Oxycodone HCl (Oxycontin Extended Release Tab) 20 mg PO Q12 [facility] Last Admin: 08/02/18 20:59 Dose: 20 mg Quetiapine Fumarate (Seroquel) 100 mg PO [facility] Last Admin: 08/02/18 21:00 Dose: 100 mg Senna/Docusate Sodium (Senokot S 50 Mg-8.6 Mg) 2 tab PO [facility] Last Admin: 08/02/18 21:01 Dose: 2 tab Sertraline HCl (Zoloft) 100 mg PO BID [facility] Last Admin: 08/02/18 19:30 Dose: 100 mg - Labs Labs: 07/27/18 06:45 07/27/18 06:45 PT 10.6 Seconds (9.8-13.1) 07/24/18 16:37 INR 0.9 07/24/18 16:37 APTT 42.8 Seconds (25.6-37.1) H 07/25/18 05:55 - Constitutional Appears: Well, Non-toxic, No Acute Distress - Head Exam Head Exam: NORMAL INSPECTION - Eye Exam Eye Exam: Normal appearance - ENT Exam ENT Exam: Mucous Membranes Moist - Respiratory Exam Respiratory Exam: Clear to Ausculation Bilateral, NORMAL BREATHING PATTERN. absent: Accessory Muscle Use, Chest Wall Tenderness, Decreased Breath Sounds, Prolonged Expiratory Phase, Rales, Rhonchi, Wheezes, Respiratory Distress, Stridor - Cardiovascular Exam Cardiovascular Exam: REGULAR RHYTHM, RRR, +S1, +S2. absent: Clicks, Diastolic murmur, JVD, Murmur - GI/Abdominal Exam GI & Abdominal Exam: Soft, Normal Bowel Sounds. absent: Distended, Firm, Guarding, Rigid, Tenderness, Rebound - Neurological Exam Neurological Exam: Alert, Awake, Oriented x3 - Psychiatric Exam Psychiatric exam: Normal Affect, Normal Mood - Skin Skin Exam: Dry, Intact, Normal Color, Warm Assessment and Plan - Assessment and Plan (Free Text) Assessment: 63 yo drug user presents with chronic ulcer at right elbow admitted for I & D and arthroscopic washout performed by Orthopedic surgery. Patient to complete Daptomycin 14 day course (Day 13 today). Plan: Infected Wound of the right elbow POD#9 s/p elbow wound I and D and arthroscopic washout Continue IV Daptomycin (Day 13 of 14) until completion of 14 days (completion will be on 08/04/18). Orthopedic surgery consult appreciated: pt cleared to be discharged 08/04/18 aft er Daptomycin dose. Follow up in 7-10 days. <Liliana Garza - Last Filed: 08/03/18 17:36> Objective - Vital Signs/Intake and Output Vital Signs (last 24 hours): Temp Pulse Resp BP Pulse Ox 97.6 F 83 20 140/75 97 08/03/18 16:11 08/03/18 16:11 08/03/18 16:11 08/03/18 16:11 08/03/18 16:11 - Medications Medications: Current Medications Acetaminophen (Tylenol 325mg Tab) 650 mg PO Q4 PRN PRN Reason: Fever 101 degrees fahrenheit Benzocaine/Menthol (Cepacol Sore Throat) 1 lili PO Q3 PRN PRN Reason: Sore Throat Last Admin: 07/30/18 14:00 Dose: 1 lili Diphenhydramine HCl (Benadryl) 25 mg PO Q6 PRN PRN Reason: Itching / Pruritus Last Admin: 07/31/18 21:00 Dose: 25 mg Gabapentin (Neurontin) 300 mg PO TID [facility] Last Admin: 08/03/18 16:38 Dose: 300 mg Hydrocortisone (Hydrocortisone 2.5%) 1 applic TOP BID [facility] Last Admin: 08/03/18 16:39 Dose: Not Given Hydromorphone HCl (Dilaudid) 4 mg PO Q4 PRN PRN Reason: Pain, severe (8-10) Last Admin: 07/31/18 14:03 Dose: 4 mg Lactated Ringer's (Lactated Ringer's) 1,000 mls @ 100 mls/hr IV .Q10H [facility] Last Admin: 08/02/18 22:30 Dose: Not Given Daptomycin 320 mg/ Sodium (Chloride) 100 mls @ 100 mls/hr IV 1700 [facility]; Protocol Stop: 08/07/18 17:01 Last Admin: 08/03/18 16:36 Dose: 100 mls/hr Mupirocin (Bactroban Ointment) 1 applic TOP BID [facility] Last Admin: 08/03/18 16:38 Dose: 1 applic Ondansetron HCl (Zofran Inj) 4 mg IVP Q4 PRN PRN Reason: Nausea/Vomiting Oxycodone HCl (Oxycontin Extended Release Tab) 20 mg PO Q12 [facility] Last Admin: 08/03/18 08:59 Dose: 20 mg Quetiapine Fumarate (Seroquel) 100 mg PO [facility] Last Admin: 08/02/18 21:00 Dose: 100 mg Senna/Docusate Sodium (Senokot S 50 Mg-8.6 Mg) 2 tab PO [facility] Last Admin: 08/02/18 21:01 Dose: 2 tab Sertraline HCl (Zoloft) 100 mg PO BID [facility] Last Admin: 08/03/18 16:38 Dose: 100 mg - Labs Labs: 07/27/18 06:45 07/27/18 06:45 PT 10.6 Seconds (9.8-13.1) 07/24/18 16:37 INR 0.9 07/24/18 16:37 APTT 42.8 Seconds (25.6-37.1) H 07/25/18 05:55 Attending/Attestation - Attestation I have personally seen and examined this patient.: Yes I have fully participated in the care of the patient.: Yes I have reviewed all pertinent clinical information, including history, physical exam and plan: Yes Notes (Text): Right Elbow Cellulitis s/p Incision and Drainage and Arthroscopic Washout ( MRSA Infection) History of IVDU Hepatitis C + Depression - cont IV Daptomycin until 08/04 then will need 1 more week of PO Doxycycline -cont Psych meds - ff up with PMD for further eval and mgt of Hep C - Heparin for DVT proph
[2018-08-03] MEDS: oxyCODONE 20 mg ER Tab (oxyCONTIN) PO SCH ×2 (08:59→21:13)
--- NOTE | 2018-08-03 09:37 | CP.PCM.PN ---
Subjective - Date & Time of Evaluation Date of Evaluation: 08/03/18 Time of Evaluation: 09:37 - Subjective Subjective: ID Note- Patient seen and examined today. he denies any fever or chills. states he feels much better and is happy that he is being d/c home tomm. he states he can move his right arm well and can bed it without any difficulty. Objective - Vital Signs/Intake and Output Vital Signs (last 24 hours): Temp Pulse Resp BP Pulse Ox 97.8 F 69 20 130/75 100 08/03/18 08:23 08/03/18 08:23 08/03/18 08:23 08/03/18 08:23 08/03/18 08:23 - Medications Medications: Current Medications Acetaminophen (Tylenol 325mg Tab) 650 mg PO Q4 PRN PRN Reason: Fever 101 degrees fahrenheit Benzocaine/Menthol (Cepacol Sore Throat) 1 lili PO Q3 PRN PRN Reason: Sore Throat Last Admin: 07/30/18 14:00 Dose: 1 lili Diphenhydramine HCl (Benadryl) 25 mg PO Q6 PRN PRN Reason: Itching / Pruritus Last Admin: 07/31/18 21:00 Dose: 25 mg Gabapentin (Neurontin) 300 mg PO TID [facility] Last Admin: 08/03/18 08:53 Dose: 300 mg Heparin Sodium (Porcine) (Heparin) 5,000 units SC Q12 [facility]; Protocol Last Admin: 08/03/18 08:53 Dose: 5,000 units Hydrocortisone (Hydrocortisone 2.5%) 1 applic TOP BID [facility] Last Admin: 08/02/18 16:26 Dose: Not Given Hydromorphone HCl (Dilaudid) 4 mg PO Q4 PRN PRN Reason: Pain, severe (8-10) Last Admin: 07/31/18 14:03 Dose: 4 mg Lactated Ringer's (Lactated Ringer's) 1,000 mls @ 100 mls/hr IV .Q10H [facility] Last Admin: 08/02/18 22:30 Dose: Not Given Daptomycin 320 mg/ Sodium (Chloride) 100 mls @ 100 mls/hr IV 1700 [facility]; Protocol Stop: 08/07/18 17:01 Last Admin: 08/02/18 16:26 Dose: 100 mls/hr Mupirocin (Bactroban Ointment) 1 applic TOP BID [facility] Last Admin: 08/03/18 08:52 Dose: 1 applic Ondansetron HCl (Zofran Inj) 4 mg IVP Q4 PRN PRN Reason: Nausea/Vomiting Oxycodone HCl (Oxycontin Extended Release Tab) 20 mg PO Q12 [facility] Last Admin: 08/03/18 08:59 Dose: 20 mg Quetiapine Fumarate (Seroquel) 100 mg PO [facility] Last Admin: 08/02/18 21:00 Dose: 100 mg Senna/Docusate Sodium (Senokot S 50 Mg-8.6 Mg) 2 tab PO [facility] Last Admin: 08/02/18 21:01 Dose: 2 tab Sertraline HCl (Zoloft) 100 mg PO BID [facility] Last Admin: 08/03/18 08:54 Dose: 100 mg - Labs Labs: - Additional Findings Additional findings: - Constitutional Appears: No Acute Distress - Head Exam Head Exam: ATRAUMATIC - Eye Exam Eye Exam: EOMI, PERRL - ENT Exam ENT Exam: Normal Oropharynx - Neck Exam Neck exam: Positive for: Full Rom - Respiratory Exam Respiratory Exam: Clear to Auscultation Bilateral, NORMAL BREATHING PATTERN - Cardiovascular Exam Cardiovascular Exam: RRR, +S1, +S2 - GI/Abdominal Exam GI & Abdominal Exam: Normal Bowel Sounds, Soft Additional comments: Nt, ND - Extremities Exam Additional comments: right elbow surgical site with sutures in place, no discharge, no edema , has good ROM, erythema almost all resolved. - Neurological Exam Neurological exam: Alert, Oriented x 3 Microbiology 07/25/18 12:41 Elbow - Right Anaerobic Culture - Final NO ANAEROBES ISOLATED. 07/25/18 12:41 Elbow - Right Fungal Culture - Preliminary NO FUNGUS GROWTH IN 1 WEEK. 07/25/18 12:41 Other: Please Indicate Gram Stain - Final 07/25/18 12:41 Other: Please Indicate Body Fluid Culture - Final NO GROWTH AFTER 4 DAYS 07/25/18 12:41 Other: Please Indicate Mycobacterial Culture - Preliminary 07/25/18 12:41 Body Fluid - Elbow-Right Gram Stain - Final 07/25/18 12:41 Body Fluid - Elbow-Right Anaerobic Culture - Final NO ANAEROBES ISOLATED. 07/25/18 12:41 Body Fluid - Elbow-Right Body Fluid Culture - Final No growth. 07/25/18 13:48 Elbow - Right Gram Stain - Final 07/25/18 13:48 Elbow - Right Wound Culture - Final No growth. 07/25/18 13:48 Elbow - Right Gram Stain - Final 07/25/18 13:48 Elbow - Right Wound Culture - Final No growth. 07/25/18 13:48 Elbow - Right Gram Stain - Final 07/25/18 13:48 Elbow - Right Wound Culture - Final No growth. 07/25/18 13:48 Elbow - Right Gram Stain - Final 07/25/18 13:48 Elbow - Right Wound Culture - Final No growth. 07/25/18 13:48 Elbow - Right Gram Stain - Final 07/25/18 13:48 Elbow - Right Wound Culture - Final No growth. 07/25/18 13:48 Elbow - Right Gram Stain - Final 07/25/18 13:48 Elbow - Right Wound Culture - Final No growth. 07/25/18 13:48 Elbow - Right Gram Stain - Final 07/25/18 13:48 Elbow - Right Wound Culture - Final No growth. 07/22/18 15:55 Blood-Venous Blood Culture - Final NO GROWTH AFTER 5 DAYS 07/22/18 15:55 Blood-Venous Gram Stain - Final TEST NOT PERFORMED 07/22/18 15:45 Blood-Venous Blood Culture - Final NO GROWTH AFTER 5 DAYS 07/22/18 15:45 Blood-Venous Gram Stain - Final TEST NOT PERFORMED 07/21/18 19:07 Blood Blood Culture - Final NO GROWTH AFTER 5 DAYS 07/21/18 19:07 Blood Gram Stain - Final TEST NOT PERFORMED 07/21/18 19:07 Blood Blood Culture - Final NO GROWTH AFTER 5 DAYS 07/21/18 19:07 Blood Gram Stain - Final TEST NOT PERFORMED 07/22/18 14:00 Elbow - Right Gram Stain - Final 07/22/18 14:00 Elbow - Right Wound Culture - Final Methicillin Resistant S Aureus Assessment and Plan (1) Cellulitis of right elbow Status: Acute (2) Osteomyelitis of right elbow Status: Acute - Assessment and Plan (Free Text) Assessment: A/P- 63 year old male with PMH of IVDU, Hep C admitted with right elbow cellulitis post trauma. afebrile normal wbc blood cx-07/17/2018- neg x 4 wound cx 07/17/2018- MRSA with vanco JOAQUÍN of 2 (VISA) repeat wound cx-07/22/2018- MRSA with vanco JOAQUÍN of 1 Ct of the elbow- as per report suggestive of OM ESR-39 ( not too High) OR wound cx- all negative so far x 4 Bone biopsy as per path report - Negative for OM. bone Biopsy- pending result Plan- continue with IV daptomycin for MRSA wound infection day #13 since bone biopsy was negative for OM and OR wound cx are negative advise total of 2 weeks of IV antibiotics ( 1 more day of daptomycin). after that pt. can be switched to oral doxycycline 100 mg BID for another week. pt. to avoid sun exposure while on doxy. Pt. advised to f/u with his Pcp and to f/u with ortho as outpatient as well. All above d/w patient at length and he verbalizes full understanding of all above and agrees with above plan of care.
--- NOTE | 2018-08-03 13:24 | CP.PCM.PN ---
Subjective - Date & Time of Evaluation Date of Evaluation: 08/03/18 Time of Evaluation: 11:00 - Subjective Subjective: Patient seen and examined at bedside. No complaints of pain. Tolerating PT well. No other complaints. Objective - Vital Signs/Intake and Output Vital Signs (last 24 hours): Temp Pulse Resp BP Pulse Ox 97.8 F 69 20 130/75 100 08/03/18 08:23 08/03/18 08:23 08/03/18 08:23 08/03/18 08:23 08/03/18 08:23 - Medications Medications: Current Medications Acetaminophen (Tylenol 325mg Tab) 650 mg PO Q4 PRN PRN Reason: Fever 101 degrees fahrenheit Benzocaine/Menthol (Cepacol Sore Throat) 1 lili PO Q3 PRN PRN Reason: Sore Throat Last Admin: 07/30/18 14:00 Dose: 1 lili Diphenhydramine HCl (Benadryl) 25 mg PO Q6 PRN PRN Reason: Itching / Pruritus Last Admin: 07/31/18 21:00 Dose: 25 mg Gabapentin (Neurontin) 300 mg PO TID [facility] Last Admin: 08/03/18 12:39 Dose: 300 mg Heparin Sodium (Porcine) (Heparin) 5,000 units SC Q12 [facility]; Protocol Last Admin: 08/03/18 08:53 Dose: 5,000 units Hydrocortisone (Hydrocortisone 2.5%) 1 applic TOP BID [facility] Last Admin: 08/02/18 16:26 Dose: Not Given Hydromorphone HCl (Dilaudid) 4 mg PO Q4 PRN PRN Reason: Pain, severe (8-10) Last Admin: 07/31/18 14:03 Dose: 4 mg Lactated Ringer's (Lactated Ringer's) 1,000 mls @ 100 mls/hr IV .Q10H [facility] Last Admin: 08/02/18 22:30 Dose: Not Given Daptomycin 320 mg/ Sodium (Chloride) 100 mls @ 100 mls/hr IV 1700 [facility]; Protocol Stop: 08/07/18 17:01 Last Admin: 08/02/18 16:26 Dose: 100 mls/hr Mupirocin (Bactroban Ointment) 1 applic TOP BID [facility] Last Admin: 08/03/18 08:52 Dose: 1 applic Ondansetron HCl (Zofran Inj) 4 mg IVP Q4 PRN PRN Reason: Nausea/Vomiting Oxycodone HCl (Oxycontin Extended Release Tab) 20 mg PO Q12 [facility] Last Admin: 08/03/18 08:59 Dose: 20 mg Quetiapine Fumarate (Seroquel) 100 mg PO HS [facility] Last Admin: 08/02/18 21:00 Dose: 100 mg Senna/Docusate Sodium (Senokot S 50 Mg-8.6 Mg) 2 tab PO HS [facility] Last Admin: 08/02/18 21:01 Dose: 2 tab Sertraline HCl (Zoloft) 100 mg PO BID [facility] Last Admin: 08/03/18 08:54 Dose: 100 mg - Labs Labs: 07/27/18 06:45 07/27/18 06:45 PT 10.6 Seconds (9.8-13.1) 07/24/18 16:37 INR 0.9 07/24/18 16:37 APTT 42.8 Seconds (25.6-37.1) H 07/25/18 05:55 - Extremities Exam Additional comments: RUE: Dressings CDI Wound CDI with nylon sutures sensation and motor intact MN/UN/RN 2 sec cap refill all fingers Assessment and Plan (1) Open wound of right elbow Assessment & Plan: POD#9 s/p R elbow wound I&D and arthroscopic washout -abx as per ID -orthopedically stable for d/c to home tomorrow -f/u in office next Wednesday 08/09 -d/w Dr. Waddell who agrees with above Status: Acute
[2018-08-03] MEDS: Docusate-Senna 50 mg-8.6 mg Tab PO SCH (21:40)
[2018-08-04] MEDS: Lactated Ringer's 1,000 ML IV SCH (04:47)
[2018-08-04 08:18] VITALS: BP 133/78; PULSE 79; TEMP 97.6; O2SAT 100
[2018-08-04] MEDS ORDERED: oxyCODONE 20 mg ER Tab (oxyCONTIN) PO SCH (09:00)
--- NOTE | 2018-08-04 09:08 | CP.PCM.PN ---
Subjective - Date & Time of Evaluation Date of Evaluation: 08/04/18 Time of Evaluation: 08:00 - Subjective Subjective: Patient seen and examined at bedside. Pain well controlled. No new complaints. Scheduled for d/c to home today. Objective - Vital Signs/Intake and Output Vital Signs (last 24 hours): Temp Pulse Resp BP Pulse Ox 97.6 F 79 20 133/78 100 08/04/18 08:18 08/04/18 08:18 08/04/18 08:18 08/04/18 08:18 08/04/18 08:18 - Medications Medications: Current Medications Acetaminophen (Tylenol 325mg Tab) 650 mg PO Q4 PRN PRN Reason: Fever 101 degrees fahrenheit Benzocaine/Menthol (Cepacol Sore Throat) 1 lili PO Q3 PRN PRN Reason: Sore Throat Last Admin: 07/30/18 14:00 Dose: 1 lili Diphenhydramine HCl (Benadryl) 25 mg PO Q6 PRN PRN Reason: Itching / Pruritus Last Admin: 07/31/18 21:00 Dose: 25 mg Gabapentin (Neurontin) 300 mg PO TID [facility] Last Admin: 08/04/18 08:53 Dose: 300 mg Heparin Sodium (Porcine) (Heparin) 5,000 units SC Q12 [facility]; Protocol Last Admin: 08/04/18 08:57 Dose: Not Given Hydrocortisone (Hydrocortisone 2.5%) 1 applic TOP BID [facility] Last Admin: 08/04/18 08:47 Dose: Not Given Hydromorphone HCl (Dilaudid) 4 mg PO Q4 PRN PRN Reason: Pain, severe (8-10) Last Admin: 07/31/18 14:03 Dose: 4 mg Daptomycin 320 mg/ Sodium (Chloride) 100 mls @ 100 mls/hr IV 1700 [facility]; Protocol Stop: 08/07/18 17:01 Last Admin: 08/03/18 16:36 Dose: 100 mls/hr Mupirocin (Bactroban Ointment) 1 applic TOP BID [facility] Last Admin: 08/04/18 08:52 Dose: 1 applic Ondansetron HCl (Zofran Inj) 4 mg IVP Q4 PRN PRN Reason: Nausea/Vomiting Oxycodone HCl (Oxycontin Extended Release Tab) 20 mg PO Q12 [facility] Last Admin: 08/04/18 08:51 Dose: 20 mg Quetiapine Fumarate (Seroquel) 100 mg PO HS [facility]PL[facility] Last Admin: 08/03/18 21:13 Dose: 100 mg Senna/Docusate Sodium (Senokot S 50 Mg-8.6 Mg) 2 tab PO HS [facility] Last Admin: 08/03/18 21:40 Dose: 2 tab Sertraline HCl (Zoloft) 100 mg PO BID [facility] Last Admin: 08/04/18 08:53 Dose: 100 mg - Labs Labs: 07/27/18 06:45 07/27/18 06:45 PT 10.6 Seconds (9.8-13.1) 07/24/18 16:37 INR 0.9 07/24/18 16:37 APTT 42.8 Seconds (25.6-37.1) H 07/25/18 05:55 - Extremities Exam Additional comments: RUE: Dressings CDI Wound CDI with nylon sutures sensation and motor intact MN/UN/RN 2 sec cap refill all fingers Assessment and Plan (1) Open wound of right elbow Assessment & Plan: POD#10 s/p R elbow wound I&D and arthroscopic washout -some sutures removed today, streris applied. Rest to be removed in office next . -IV abx to be transitioned to PO today as per ID -orthopedically stable for d/c to home -f/u in office next Wednesday 08/09 -d/w Dr. Waddell who agrees with above Status: Acute
--- NOTE | 2018-08-05 06:24 | DS ---
REASON FOR ADMISSION: This is a 63-year-old male with history of multiple medical problems who was admitted for infected right elbow wound that failed to respond to outpatient treatment. COURSE OF HOSPITALIZATION: The patient was admitted to medical floor, and he was started on IV antibiotics. The patient had an orthopedic consult done by Dr. Waddell for debridement of right elbow wound. The patient had an infectious disease consult done by Dr. Cassidy. The patient was placed on IV antibiotics and he completed a course, and wound was improving. The patient was discharged to home to follow up with his primary care physician and Dr. Waddell. FINAL DIAGNOSES: 1. Infected wound of the right elbow. 2. History of depression. 3. Seborrheic dermatitis. [facility] MD Gee
== END 2018-08-04 15:10 | disposition home or self-care (01) | DRG 571 ==
LOC: H.ER 17:50 → H.ERHOLD 21:26 → H.MEDSURG1 07-22 00:36
PROVIDERS: ADMIT Internal Medicine; ATTEND Internal Medicine
PROC: 0RBL4ZZ Excision of Right Elbow Joint, Percutaneous Endoscopic Approach (ICD-10-PCS; 2018-07-25)
PROC: 0MB Bursae and Ligaments, Excision (ICD-10-PCS; 2018-07-25)
PROC: 0PB Upper Bones, Excision (ICD-10-PCS; 2018-07-25)
PROC: 3E0T3BZ Introduction of Anesthetic Agent into Peripheral Nerves and Plexi, Percutaneous Approach (ICD-10-PCS; 2018-07-25)
PROC: 3E0T33Z Introduction of Anti-inflammatory into Peripheral Nerves and Plexi, Percutaneous Approach (ICD-10-PCS; 2018-07-25)
PROC: 0JBG0ZZ Excision of Right Lower Arm Subcutaneous Tissue and Fascia, Open Approach (ICD-10-PCS; principal; 2018-07-25 13:30)
PROC: 02HV33Z Insertion of Infusion Device into Superior Vena Cava, Percutaneous Approach (ICD-10-PCS; 2018-07-27)
PROC: B548ZZA Ultrasonography of Superior Vena Cava, Guidance (ICD-10-PCS; 2018-07-27)
PROC: 3E04329 Introduction of Other Anti-infective into Central Vein, Percutaneous Approach (ICD-10-PCS; 2018-07-27)
DX: S51.001A Unspecified open wound of right elbow, initial encounter (principal); L03.113 Cellulitis of right upper limb; L98.498 Non-pressure chronic ulcer of skin of other sites with other specified severity; B95.62 Methicillin resistant Staphylococcus aureus infection as the cause of diseases classified elsewhere; M70.21 Olecranon bursitis, right elbow; Z16.24 Resistance to multiple antibiotics; L21.9 Seborrheic dermatitis, unspecified; F19.10 Other psychoactive substance abuse, uncomplicated; F12.90 Cannabis use, unspecified, uncomplicated; E11.69 Type 2 diabetes mellitus with other specified complication; B19.20 Unspecified viral hepatitis C without hepatic coma; F31.9 Bipolar disorder, unspecified; I10 Essential (primary) hypertension; F41.9 Anxiety disorder, unspecified; F17.210 Nicotine dependence, cigarettes, uncomplicated; Z91.81 History of falling